=== PATIENT | male | born 1995 | race Caucasian/White ===

== ENCOUNTER 2017-10-05 02:49 | Emergency (ER) | payer OTHER ==
[~2017-10-05] VITALS: Ht 167.6 cm; Wt 82.0 kg
[2017-10-05 03:01] VITALS: BP 127/82; PULSE 95; RESP 18; TEMP 97.5; O2SAT 100
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
[2017-10-05 03:58] LABS: BICARBONATE 27.5 MEQ/L (21.0-32.0); CALCIUM 8.3 MG/DL (8.5-10.1)
[2017-10-05 04:17] LABS: AUTOMATED NEUTROPHIL # 6.2 TH/MM3 (1.8-7.7); BASOPHIL # 0.1 TH/MM3 (0-0.2); BASOPHIL % 1.3 % (0.0-2.0); EOSINOPHIL # 0.8 TH/MM3 (0-0.4); EOSINOPHIL % 7.1 % (0.0-4.0); HEMATOCRIT 41.1 % (39.0-51.0); HEMOGLOBIN 14.3 GM/DL (13.0-17.0); LYMPH % 28.8 % (9.0-44.0); LYMPHOCYTE # 3.1 TH/MM3 (1.0-4.8); MEAN CELL VOLUME 90.4 FL (80.0-100.0); MEAN CORPUSCULAR HEMOGLOBIN 31.4 PG (27.0-34.0); MEAN CORPUSCULAR HGB CONC 34.8 % (32.0-36.0); MEAN PLATELET VOLUME 7.8 FL (7.0-11.0); MONO % 5.6 % (0.0-8.0); MONOCYTE # 0.6 TH/MM3 (0-0.9); NEUT % 57.2 % (16.0-70.0); PLATELET COUNT 390 TH/MM3 (150-450); RED BLOOD COUNT 4.54 MIL/MM3 (4.50-5.90); RED CELL DISTRIBUTION WIDTH 12.6 % (11.6-17.2); WHITE BLOOD COUNT 10.8 TH/MM3 (4.0-11.0)
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
== END 2017-10-05 15:16 | disposition home or self-care (01) ==
LOC: NEPD 02:49 → NEPJ 15:16
DX: F10.94 Alcohol use, unspecified with alcohol-induced mood disorder (principal); F12.90 Cannabis use, unspecified, uncomplicated; Y90.7 Blood alcohol level of 200-239 mg/100 ml; Z72.0 Tobacco use
CPT/HCPCS: 80048; 80307; 84443; 85025; 99284

== ENCOUNTER 2017-11-10 00:15 | Emergency (ER) | payer OTHER ==
[~2017-11-10] VITALS: Ht 172.7 cm; Wt 80.0 kg
[2017-11-10 00:27] VITALS: BP 127/80; PULSE 100; RESP 16; TEMP 98.7; O2SAT 96
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
== END 2017-11-10 00:48 ==
LOC: NEPC 00:15
DX: S00.11XA Contusion of right eyelid and periocular area, initial encounter (principal); H11.31 Conjunctival hemorrhage, right eye; Y09 Assault by unspecified means
CPT/HCPCS: 99282

== ENCOUNTER 2018-02-15 02:15 | Inpatient (IN) ==
[2018-02-15] MEDS ORDERED: Heparin 10,000 UNITS/10 ML Vial (for IV use) IV.PUSH STA ×3 (02:22→04:27)
[2018-02-15] MEDS ORDERED: Nitroglycerin Drip Premix 50 MG/250 ML BOTTLE ONE (02:25)
[2018-02-15] MEDS ORDERED: Morphine Inj 4 MG/ML Vial ONE (02:26)
[2018-02-15] MEDS ORDERED: Sod Chloride 0.9% Inj 1,000 ML IV.SIG SCH ×2 (02:30→03:30)
[2018-02-15] MEDS: Nitroglycerin Drip Premix 50 MG/250 ML BOTTLE IV.CONT PRN ×2 (02:33→14:23)
--- NOTE | 2018-02-15 02:52 | XR ---
EXAM DATE: 02/15/2018 2:48 AM EDT AGE/SEX: 22 years / Male INDICATIONS: Chest pain, STEMI-Alert. CLINICAL DATA: This is the patient's initial encounter. Patient reports that signs and symptoms have been present for 1 day and indicates a pain score of 10/10. MEDICAL/SURGICAL HISTORY: None. None. COMPARISON: No prior exams available for comparison. FINDINGS: A single AP view of the chest demonstrates the lungs to be symmetrically aerated without evidence of mass, infiltrate or effusion. The cardiomediastinal contours are unremarkable. Old fracture deformit y of the right clavicular diaphysis. Dextroscoliosis of the thoracolumbar spine. CONCLUSION: No acute cardiopulmonary process. Lungs are clear. Electronically signed by: Arslan Rajput MD 02/15/2018 2:50 AM EDT
--- NOTE | 2018-02-15 03:07 | ED ---
HPI General Chief Complaint: STEMI Alert Stated Complaint: chest pain Time Seen by Provider: 02/15/18 02:22 Source: patient and EMS Mode of arrival: EMS Limitations: no limitations History of Present Illness HPI narrative: 22-year-old male presents to the emergency department from home by EMS transport for evaluation of chest pain with shortness of breath diaphoresis and referred pain to the right upper extremity and bilateral lower extremities. Patient admits to substance use but denies any recent use for greater than 2 weeks. Patient rates pain 10/10 in intensity at 8 PM and upon EMS arrival remaining a 10 over 12:10 received sublingual nitroglycerin 3 324 mg of aspirin and 4 mg of morphine. Patient's pain is decreased to 8/10 intensity is worsened by deep respiratory effort and intermittently complains of tingling or decreased sensation in the feet. Patient also complains of tightness of his cast. Patient denies any recent injury or increased exercise regimen. Patient is noted some tenseness and swelling of his calves. Patient admits to ongoing tobacco use has known personal history of hypertension dyslipidemia diabetes or known coronary vessel disease also has no family history of premature onset heart disease or clotting disorder. Patient states on Friday he noticed that he had dark colored urine. complaint: chest pain Complete Quality Measures for STEMI Alert Patients STEMI Alert: Yes Onset (ago): hour(s) (6.5) Time: 02:22 Duration: constant and progressively worsening Onset: during rest Pain location: substernal and left chest Severity: severe Severity scale (1-10): 8 Quality: tightness and sharp Pain radiation: RUE and other (ble) Relieving factors: nitroglycerin and medication-other (Morphine sulfate provide some relief from 10/10 intensity to 8/10 intensity) Exacerbating factors: inspiration Context: other (Marijuana use Friday last) Associated symptoms: nausea and diaphoresis Treatments prior to arrival chest pain: aspirin and nitroglycerin Related Data Home Medications Medication Instructions Recorded Confirmed No Known Home Medications 02/15/18 02/15/18 Allergies Allergy/AdvReac Type Severity Reaction Status Date / Time No Known Allergies Allergy Unverified 02/15/18 02:21 Review of Systems ROS: all other systems reviewed are negative [facility] Medical History Medical History Amputation of left index finger (Acute) Amputation of left middle finger (Acute) Amputation of left ring finger (Acute) Asthma (Acute) Family History Family History Mother Family history of cancer Other No significant family history Social History Social History Substance History: Active Abuse Smoking Status: Current every day smoker Tobacco Type: Cigarettes How Often Do You Have a Drink Containing Alcohol: 2 to 3 times a week Recent Travel in [place] within the Last 8 Weeks: No Recent Out of Country Travel within the Last 8 Weeks: No Substance Abuse Detail Marijuana: Substance Use Status: Active Route Used Substance Abuse: Inhalation Substance Frequency: COUPLE TIMES A MONTH Reason for Use: Get High Crack/Cocaine: Substance Use Status: Active Route Used Substance Abuse: Inhalation Substance Frequency: COUPLE TIMES MONTH Reason for Use: Get High Immunization History Tetanus Immunization: Unsure Hx Influenza Vaccine This Season: No Exam Narrative Exam Narrative: GENERAL: Well-nourished, well-developed patient. Appears to be an discomfort no respiratory distress GCS 15 SKIN: Focused skin assessment warm/dry. HEAD: Normocephalic. EYES: No scleral icterus. No injection or drainage. NECK: Supple, trachea midline. No JVD or lymphadenopathy. CARDIOVASCULAR: Regular rate and rhythm without murmurs, gallops, or rubs. RESPIRATORY: Breath sounds equal bilaterally. No accessory muscle use. GASTROINTESTINAL: Abdomen soft, non-tender, nondistended. MUSCULOSKELETAL: No cyanosis, or edema. Radial pulses 2+ to palpation bilaterally dorsalis pedis pulses and posterior tibialis pulses 2+ to palpation bilaterally capillary refill is brisk and less than 2 seconds per digit lateral upper extremities and lower extremities BACK: Nontender without obvious deformity. No CVA tenderness. Course Consultations Consultation #1: Dr Avitia stat call --stemi Time: 02:20 Consultation #2: Aneththesiologist -- Dr Falcon Time: 02:52 Initial Documented Vital Signs Pulse Oximetry 98 02/15/18 02:15 Last Documented Vital Signs Temperature 98.9 F 02/15/18 14:00 Pulse Rate 81 02/15/18 15:00 Respiratory Rate 14 02/15/18 15:00 Blood Pressure 115/71 02/15/18 16:00 Pulse Oximetry 98 02/15/18 16:00 Critical Care Time Critical Care Time: Yes Total Critical Care Time: 35 Attestation: Aggregate critical care time was 35 minutes. Time to perform other separately billable procedures was not included in the critical care time. My time did not include minutes spent treating any other patients simultaneously or on activities that did not directly contribute to the patient's treatment. The services I provided to this patient were to treat and/or prevent clinically significant deterioration that could result in: Dissection, cardiogenic shock, I provided critical care services requiring my management, as noted below: Chart data review, documentation time, medication orders and management, vital sign assessments/reviewing monitor data, ordering and reviewing lab tests, ordering and interpreting/reviewing x-rays and diagnostic studies, care of the patient and discussion of the patient with the admitting physicians. Medical Decision Making MDM Narrative Medical decision making narrative: 22-year-old male presents to the emergency department by EMS transport from home for severe retrosternal chest pain with abnormal EKG showing acute ST elevation anterolaterally with inferior ST elevation and Q waves present. Patient with ongoing persistent chest pain unresolved with nitroglycerin and morphine sulfate. EKG in the emergency department again shows ST segment elevation inferiorly and anterolaterally with reciprocal changes however Q-wave present for possible subacute versus acute CA stat call placed to on-call wood panel inspector for STEMI alert STEMI alert called patient's case discussed with on-call wood panel inspector Dr. Avitia imaging of the EKG sent by phone directly to wood panel inspector again notes Q waves present concern for dissection in young adults with no other known medical history. Discussed with Dr Weiss MR v CTA for dissection in patient with Cr 3.3 -- this shared with Dr Avitia I-STAT lab values remarkable for creatinine of 3.3 this is discussed in detail with radiologist as well as wood panel inspector Dr. Avitia reports that he will come to the emergency room and perform a bedside transesophageal echocardiogram to evaluate the aortic root. Heparin will be held until echo is performed and CTA of the thorax and abdominal aorta has been canceled. Per Dr. Avitia patient not candidate for cardiac catheterization at this time in view of acute renal failure. @ 3:05 Dr avitia at the bedside for assessment and AMAIRANI Dr Gregorio at bedside Medical Screen Exam Complete: Yes Emergency Medical Condition: Yes Differential Diagnosis Differential Diagnosis: [facility], subacute myocardial infarction, aortic dissection, myocarditis, pericarditis, PE, rhabdomyolysis acute renal failure polysubstance ingestion Medical Records Medical records reviewed: Yes I reviewed the patient's medical records. Lab Data Lab results reviewed: Yes I reviewed the patient's lab results. Result diagrams: 02/15/18 02:20 02/15/18 12:50 Lab Results 02/15/18 02/15/18 02/15/18 Range/Units 02:20 02:20 02:20 WBC 15.8 H (4.0-11.0) th/mm3 RBC 4.82 (4.50-5.90) mil/mm3 Hgb 15.5 (13.0-17.0) gm/dL POC Hgb (Calc) (13.0-17.0) g/dL Hct 44.4 (39.0-51.0) % POC Hct (39-51.0) % MCV 92.2 (80.0-100.0) fL MCH 32.1 (27.0-34.0) pg MCHC 34.8 (32.0-36.0) % RDW 12.9 (11.6-17.2) % Plt Count 228 (150-450) th/mm3 MPV 8.5 (7.0-11.0) fL Neut % (Auto) 83.7 H (16.0-70.0) % Lymph % (Auto) 9.7 (9.0-44.0) % [place] % (Auto) 5.9 (0.0-8.0) % Eos % (Auto) 0.3 (0.0-4.0) % Baso % (Auto) 0.4 (0.0-2.0) % Neut # (Auto) 13.2 H (1.8-7.7) th/mm3 Lymph # (Auto) 1.5 (1.0-4.8) th/mm3 [place] # (Auto) 0.9 (0.0-0.9) th/mm3 Eos # (Auto) 0.1 (0.0-0.4) th/mm3 Baso # (Auto) 0.1 (0.0-0.2) th/mm3 WBC Differential . Differential Comment Auto diff final ESR (0-15) mm/hr PT 10.1 (9.8-11.6) sec INR 1.0 Ratio APTT 24.2 L (24.3-30.1) sec POC Sodium (137-144) mmol/L Sodium (136-145) meq/L POC Potassium (3.6-5.0) mmol/L Potassium (3.5-5.1) meq/L POC Chloride (102-111) mmol/L Chloride (98-107) meq/L Carbon Dioxide (21.0-32.0) meq/L Anion Gap (5-15) meq/L POC BUN (5-21) mg/dL BUN (7-18) mg/dL Creatinine (0.60-1.30) mg/dL POC Creatinine (0.6-1.3) mg/dL Estimated GFR (>89) mL/min POC Glucose (68-110) mg/dL Random Glucose (74-106) mg/dL Lactic Acid (0.4-2.0) mmol/L Calcium (8.5-10.1) mg/dL Prot Corrected Calcium Phosphorus (2.5-4.9) mg/dL Magnesium (1.5-2.5) mg/dL Total Bilirubin (0.2-1.0) mg/dL AST (15-37) U/L ALT (12-78) U/L Alkaline Phosphatase (45-117) U/L Total Creatine Kinase (39-308) U/L CK-MB (CK-2) (0.5-3.6) ng/mL CK-MB (CK-2) % (0.0-4.0) % Troponin I (0.02-0.05) ng/mL C-Reactive Protein (0.00-0.30) mg/dL B-Natriuretic Peptide (0-100) pg/mL Total Protein (6.4-8.2) g/dL Albumin (3.4-5.0) g/dL Lipase (73-393) U/L TSH (0.358-3.740) uIU/mL Urine Color (Yellw/Straw) Urine Clarity (Clear) Urine pH (5.0-8.5) Ur Specific [place] (1.002-1.035) Urine Protein (Neg-Trace) mg/dL Urine Glucose (UA) (Negative) mg/dL Urine Ketones (Negative) mg/dL Urine Occult Blood (Negative) Urine Nitrate (Negative) Urine Bilirubin (Negative) Urine Urobilinogen (Less than 2) mg/dL Ur Leukocyte Esterase (Negative) Urine Eosinophils Ur Random Creatinine (27-300) mg/dL Ur Random Sodium meq/L Nasal Screen MRSA (PCR) (Negative) Acetaminophen (10.0-30.0) mcg/mL Hepatitis A IgM Ab (Nonreactive) Hep Bs Antigen (Nonreactive) Hep B Core IgM Ab (Nonreactive) Hep C IgG Ab (Nonreactive) Blood Type A Negative Blood Type Recheck Required Antibody Screen Negative 02/15/18 02/15/18 02/15/18 Range/Units 02:20 02:20 05:10 WBC (4.0-11.0) th/mm3 RBC (4.50-5.90) mil/mm3 Hgb (13.0-17.0) gm/dL POC Hgb (Calc) 15.0 (13.0-17.0) g/dL Hct (39.0-51.0) % POC Hct 44.0 (39-51.0) % MCV (80.0-100.0) fL MCH (27.0-34.0) pg MCHC (32.0-36.0) % RDW (11.6-17.2) % Plt Count (150-450) th/mm3 MPV (7.0-11.0) fL Neut % (Auto) (16.0-70.0) % Lymph % (Auto) (9.0-44.0) % Mclean % (Auto) (0.0-8.0) % Eos % (Auto) (0.0-4.0) % Baso % (Auto) (0.0-2.0) % Neut # (Auto) (1.8-7.7) th/mm3 Lymph # (Auto) (1.0-4.8) th/mm3 [place]clean # (Auto) (0.0-0.9) th/mm3 Eos # (Auto) (0.0-0.4) th/mm3 Baso # (Auto) (0.0-0.2) th/mm3 WBC Differential Differential Comment ESR 14 (0-15) mm/hr PT (9.8-11.6) sec INR Ratio APTT (24.3-30.1) sec POC Sodium 133 L (137-144) mmol/L Sodium (136-145) meq/L POC Potassium 3.3 L (3.6-5.0) mmol/L Potassium (3.5-5.1) meq/L POC Chloride 99 L (102-111) mmol/L Chloride (98-107) meq/L Carbon Dioxide (21.0-32.0) meq/L Anion Gap (5-15) meq/L POC BUN 38 H (5-21) mg/dL BUN (7-18) mg/dL Creatinine (0.60-1.30) mg/dL POC Creatinine 3.3 H (0.6-1.3) mg/dL Estimated GFR (>89) mL/min POC Glucose 136 H (68-110) mg/dL Random Glucose (74-106) mg/dL Lactic Acid (0.4-2.0) mmol/L Calcium 8.0 L (8.5-10.1) mg/dL Prot Corrected Calcium Phosphorus (2.5-4.9) mg/dL Magnesium 2.5 (1.5-2.5) mg/dL Total Bilirubin (0.2-1.0) mg/dL AST (15-37) U/L ALT (12-78) U/L Alkaline Phosphatase (45-117) U/L Total Creatine Kinase 79767 H (39-308) U/L CK-MB (CK-2) 473.9 H (0.5-3.6) ng/mL CK-MB (CK-2) % 1.2 (0.0-4.0) % Troponin I Greater than 40.00 H* (0.02-0.05) ng/mL C-Reactive Protein (0.00-0.30) mg/dL B-Natriuretic Peptide 386 H (0-100) pg/mL Total Protein (6.4-8.2) g/dL Albumin (3.4-5.0) g/dL Lipase (73-393) U/L TSH (0.358-3.740) uIU/mL Urine Color (Yellw/Straw) Urine Clarity (Clear) Urine pH (5.0-8.5) Ur Specific [place] (1.002-1.035) Urine Protein (Neg-Trace) mg/dL Urine Glucose (UA) (Negative) mg/dL Urine Ketones (Negative) mg/dL Urine Occult Blood (Negative) Urine Nitrate (Negative) Urine Bilirubin (Negative) Urine Urobilinogen (Less than 2) mg/dL Ur Leukocyte Esterase (Negative) Urine Eosinophils Ur Random Creatinine (27-300) mg/dL Ur Random Sodium meq/L Nasal Screen MRSA (PCR) (Negative) Acetaminophen (10.0-30.0) mcg/mL Hepatitis A IgM Ab (Nonreactive) Hep Bs Antigen (Nonreactive) Hep B Core IgM Ab (Nonreactive) Hep C IgG Ab (Nonreactive) Blood Type Blood Type Recheck Antibody Screen 02/15/18 02/15/18 02/15/18 Range/Units 05:10 05:10 05:10 WBC (4.0-11.0) th/mm3 RBC (4.50-5.90) mil/mm3 Hgb (13.0-17.0) gm/dL POC Hgb (Calc) (13.0-17.0) g/dL Hct (39.0-51.0) % POC Hct (39-51.0) % MCV (80.0-100.0) fL MCH (27.0-34.0) pg MCHC (32.0-36.0) % RDW (11.6-17.2) % Plt Count (150-450) th/mm3 MPV (7.0-11.0) fL Neut % (Auto) (16.0-70.0) % Lymph % (Auto) (9.0-44.0) % Mclean % (Auto) (0.0-8.0) % Eos % (Auto) (0.0-4.0) % Baso % (Auto) (0.0-2.0) % Neut # (Auto) (1.8-7.7) th/mm3 Lymph # (Auto) (1.0-4.8) th/mm3 [place]clean # (Auto) (0.0-0.9) th/mm3 Eos # (Auto) (0.0-0.4) th/mm3 Baso # (Auto) (0.0-0.2) th/mm3 WBC Differential Differential Comment ESR (0-15) mm/hr PT (9.8-11.6) sec INR Ratio APTT (24.3-30.1) sec POC Sodium (137-144) mmol/L Sodium 136 (136-145) meq/L POC Potassium (3.6-5.0) mmol/L Potassium 3.7 (3.5-5.1) meq/L POC Chloride (102-111) mmol/L Chloride 98 (98-107) meq/L Carbon Dioxide 26.1 (21.0-32.0) meq/L Anion Gap 12 (5-15) meq/L POC BUN (5-21) mg/dL BUN 43 H (7-18) mg/dL Creatinine 3.22 H (0.60-1.30) mg/dL POC Creatinine (0.6-1.3) mg/dL Estimated GFR 24 L (>89) mL/min POC Glucose (68-110) mg/dL Random Glucose 113 H (74-106) mg/dL Lactic Acid (0.4-2.0) mmol/L Calcium 8.3 L (8.5-10.1) mg/dL Prot Corrected Calcium Phosphorus 4.2 Cancelled (2.5-4.9) mg/dL Magnesium (1.5-2.5) mg/dL Total Bilirubin 0.4 (0.2-1.0) mg/dL AST 1570 H (15-37) U/L ALT 499 H (12-78) U/L Alkaline Phosphatase 74 (45-117) U/L Total Creatine Kinase (39-308) U/L CK-MB (CK-2) (0.5-3.6) ng/mL CK-MB (CK-2) % (0.0-4.0) % Troponin I (0.02-0.05) ng/mL C-Reactive Protein 12.70 H (0.00-0.30) mg/dL B-Natriuretic Peptide (0-100) pg/mL Total Protein 6.9 (6.4-8.2) g/dL Albumin 3.4 (3.4-5.0) g/dL Lipase (73-393) U/L TSH 1.460 Cancelled (0.358-3.740) uIU/mL Urine Color (Yellw/Straw) Urine Clarity (Clear) Urine pH (5.0-8.5) Ur Specific [place] (1.002-1.035) Urine Protein (Neg-Trace) mg/dL Urine Glucose (UA) (Negative) mg/dL Urine Ketones (Negative) mg/dL Urine Occult Blood (Negative) Urine Nitrate (Negative) Urine Bilirubin (Negative) Urine Urobilinogen (Less than 2) mg/dL Ur Leukocyte Esterase (Negative) Urine Eosinophils Ur Random Creatinine (27-300) mg/dL Ur Random Sodium meq/L Nasal Screen MRSA (PCR) (Negative) Acetaminophen (10.0-30.0) mcg/mL Hepatitis A IgM Ab (Nonreactive) Hep Bs Antigen (Nonreactive) Hep B Core IgM Ab (Nonreactive) Hep C IgG Ab (Nonreactive) Blood Type Blood Type Recheck Antibody Screen 02/15/18 02/15/18 02/15/18 Range/Units 05:10 06:30 08:20 WBC (4.0-11.0) th/mm3 RBC (4.50-5.90) mil/mm3 Hgb (13.0-17.0) gm/dL POC Hgb (Calc) (13.0-17.0) g/dL Hct (39.0-51.0) % POC Hct (39-51.0) % MCV (80.0-100.0) fL MCH (27.0-34.0) pg MCHC (32.0-36.0) % RDW (11.6-17.2) % Plt Count (150-450) th/mm3 MPV (7.0-11.0) fL Neut % (Auto) (16.0-70.0) % Lymph % (Auto) (9.0-44.0) % [place] % (Auto) (0.0-8.0) % Eos % (Auto) (0.0-4.0) % Baso % (Auto) (0.0-2.0) % Neut # (Auto) (1.8-7.7) th/mm3 Lymph # (Auto) (1.0-4.8) th/mm3 [place] # (Auto) (0.0-0.9) th/mm3 Eos # (Auto) (0.0-0.4) th/mm3 Baso # (Auto) (0.0-0.2) th/mm3 WBC Differential Differential Comment ESR (0-15) mm/hr PT (9.8-11.6) sec INR Ratio APTT (24.3-30.1) sec POC Sodium (137-144) mmol/L Sodium Cancelled (136-145) meq/L POC Potassium (3.6-5.0) mmol/L Potassium Cancelled (3.5-5.1) meq/L POC Chloride (102-111) mmol/L Chloride Cancelled (98-107) meq/L Carbon Dioxide Cancelled (21.0-32.0) meq/L Anion Gap Cancelled (5-15) meq/L POC BUN (5-21) mg/dL BUN Cancelled (7-18) mg/dL Creatinine Cancelled (0.60-1.30) mg/dL POC Creatinine (0.6-1.3) mg/dL Estimated GFR Cancelled (>89) mL/min POC Glucose (68-110) mg/dL Random Glucose Cancelled (74-106) mg/dL Lactic Acid 0.8 (0.4-2.0) mmol/L Calcium Cancelled (8.5-10.1) mg/dL Prot Corrected Calcium Cancelled Phosphorus (2.5-4.9) mg/dL Magnesium (1.5-2.5) mg/dL Total Bilirubin Cancelled (0.2-1.0) mg/dL AST Cancelled (15-37) U/L ALT Cancelled (12-78) U/L Alkaline Phosphatase Cancelled (45-117) U/L Total Creatine Kinase (39-308) U/L CK-MB (CK-2) (0.5-3.6) ng/mL CK-MB (CK-2) % (0.0-4.0) % Troponin I (0.02-0.05) ng/mL C-Reactive Protein (0.00-0.30) mg/dL B-Natriuretic Peptide (0-100) pg/mL Total Protein Cancelled (6.4-8.2) g/dL Albumin Cancelled (3.4-5.0) g/dL Lipase (73-393) U/L TSH (0.358-3.740) uIU/mL Urine Color (Yellw/Straw) Urine Clarity (Clear) Urine pH (5.0-8.5) Ur Specific [place] (1.002-1.035) Urine Protein (Neg-Trace) mg/dL Urine Glucose (UA) (Negative) mg/dL Urine Ketones (Negative) mg/dL Urine Occult Blood (Negative) Urine Nitrate (Negative) Urine Bilirubin (Negative) Urine Urobilinogen (Less than 2) mg/dL Ur Leukocyte Esterase (Negative) Urine Eosinophils Ur Random Creatinine (27-300) mg/dL Ur Random Sodium meq/L Nasal Screen MRSA (PCR) Not detected (Negative) Acetaminophen (10.0-30.0) mcg/mL Hepatitis A IgM Ab (Nonreactive) Hep Bs Antigen (Nonreactive) Hep B Core IgM Ab (Nonreactive) Hep C IgG Ab (Nonreactive) Blood Type Blood Type Recheck Antibody Screen 02/15/18 02/15/18 02/15/18 Range/Units 08:30 08:30 08:30 WBC (4.0-11.0) th/mm3 RBC (4.50-5.90) mil/mm3 Hgb (13.0-17.0) gm/dL POC Hgb (Calc) (13.0-17.0) g/dL Hct (39.0-51.0) % POC Hct (39-51.0) % MCV (80.0-100.0) fL MCH (27.0-34.0) pg MCHC (32.0-36.0) % RDW (11.6-17.2) % Plt Count (150-450) th/mm3 MPV (7.0-11.0) fL Neut % (Auto) (16.0-70.0) % Lymph % (Auto) (9.0-44.0) % [place] % (Auto) (0.0-8.0) % Eos % (Auto) (0.0-4.0) % Baso % (Auto) (0.0-2.0) % Neut # (Auto) (1.8-7.7) th/mm3 Lymph # (Auto) (1.0-4.8) th/mm3 [place] # (Auto) (0.0-0.9) th/mm3 Eos # (Auto) (0.0-0.4) th/mm3 Baso # (Auto) (0.0-0.2) th/mm3 WBC Differential Differential Comment ESR (0-15) mm/hr PT (9.8-11.6) sec INR Ratio APTT (24.3-30.1) sec POC Sodium (137-144) mmol/L Sodium (136-145) meq/L POC Potassium (3.6-5.0) mmol/L Potassium (3.5-5.1) meq/L POC Chloride (102-111) mmol/L Chloride (98-107) meq/L Carbon Dioxide (21.0-32.0) meq/L Anion Gap (5-15) meq/L POC BUN (5-21) mg/dL BUN (7-18) mg/dL Creatinine (0.60-1.30) mg/dL POC Creatinine (0.6-1.3) mg/dL Estimated GFR (>89) mL/min POC Glucose (68-110) mg/dL Random Glucose (74-106) mg/dL Lactic Acid (0.4-2.0) mmol/L Calcium (8.5-10.1) mg/dL Prot Corrected Calcium Phosphorus (2.5-4.9) mg/dL Magnesium (1.5-2.5) mg/dL Total Bilirubin (0.2-1.0) mg/dL AST (15-37) U/L ALT (12-78) U/L Alkaline Phosphatase (45-117) U/L Total Creatine Kinase (39-308) U/L CK-MB (CK-2) (0.5-3.6) ng/mL CK-MB (CK-2) % (0.0-4.0) % Troponin I (0.02-0.05) ng/mL C-Reactive Protein (0.00-0.30) mg/dL B-Natriuretic Peptide (0-100) pg/mL Total Protein (6.4-8.2) g/dL Albumin (3.4-5.0) g/dL Lipase (73-393) U/L TSH (0.358-3.740) uIU/mL Urine Color (Yellw/Straw) Urine Clarity (Clear) Urine pH (5.0-8.5) Ur Specific [place] (1.002-1.035) Urine Protein (Neg-Trace) mg/dL Urine Glucose (UA) (Negative) mg/dL Urine Ketones (Negative) mg/dL Urine Occult Blood (Negative) Urine Nitrate (Negative) Urine Bilirubin (Negative) Urine Urobilinogen (Less than 2) mg/dL Ur Leukocyte Esterase (Negative) Urine Eosinophils ND Ur Random Creatinine 82 (27-300) mg/dL Ur Random Sodium 23 meq/L Nasal Screen MRSA (PCR) (Negative) Acetaminophen (10.0-30.0) mcg/mL Hepatitis A IgM Ab (Nonreactive) Hep Bs Antigen (Nonreactive) Hep B Core IgM Ab (Nonreactive) Hep C IgG Ab (Nonreactive) Blood Type Blood Type Recheck Antibody Screen 02/15/18 02/15/18 02/15/18 Range/Units 08:30 08:50 08:50 WBC (4.0-11.0) th/mm3 RBC (4.50-5.90) mil/mm3 Hgb (13.0-17.0) gm/dL POC Hgb (Calc) (13.0-17.0) g/dL Hct (39.0-51.0) % POC Hct (39-51.0) % MCV (80.0-100.0) fL MCH (27.0-34.0) pg MCHC (32.0-36.0) % RDW (11.6-17.2) % Plt Count (150-450) th/mm3 MPV (7.0-11.0) fL Neut % (Auto) (16.0-70.0) % Lymph % (Auto) (9.0-44.0) % [place] % (Auto) (0.0-8.0) % Eos % (Auto) (0.0-4.0) % Baso % (Auto) (0.0-2.0) % Neut # (Auto) (1.8-7.7) th/mm3 Lymph # (Auto) (1.0-4.8) th/mm3 [place] # (Auto) (0.0-0.9) th/mm3 Eos # (Auto) (0.0-0.4) th/mm3 Baso # (Auto) (0.0-0.2) th/mm3 WBC Differential Differential Comment ESR (0-15) mm/hr PT (9.8-11.6) sec INR Ratio APTT (24.3-30.1) sec POC Sodium (137-144) mmol/L Sodium 137 (136-145) meq/L POC Potassium (3.6-5.0) mmol/L Potassium 3.5 (3.5-5.1) meq/L POC Chloride (102-111) mmol/L Chloride 100 (98-107) meq/L Carbon Dioxide 27.0 (21.0-32.0) meq/L Anion Gap 10 (5-15) meq/L POC BUN (5-21) mg/dL BUN 44 H (7-18) mg/dL Creatinine 3.33 H (0.60-1.30) mg/dL POC Creatinine (0.6-1.3) mg/dL Estimated GFR 23 L (>89) mL/min POC Glucose (68-110) mg/dL Random Glucose 113 H (74-106) mg/dL Lactic Acid 0.9 (0.4-2.0) mmol/L Calcium 8.3 L (8.5-10.1) mg/dL Prot Corrected Calcium Phosphorus 4.1 (2.5-4.9) mg/dL Magnesium 2.6 H (1.5-2.5) mg/dL Total Bilirubin 0.5 (0.2-1.0) mg/dL AST 1325 H (15-37) U/L ALT 466 H (12-78) U/L Alkaline Phosphatase 73 (45-117) U/L Total Creatine Kinase 96124 H (39-308) U/L CK-MB (CK-2) 276.8 H (0.5-3.6) ng/mL CK-MB (CK-2) % 1.1 (0.0-4.0) % Troponin I Greater than 40.00 H* (0.02-0.05) ng/mL C-Reactive Protein (0.00-0.30) mg/dL B-Natriuretic Peptide (0-100) pg/mL Total Protein 6.8 (6.4-8.2) g/dL Albumin 3.3 L (3.4-5.0) g/dL Lipase 58 L (73-393) U/L TSH (0.358-3.740) uIU/mL Urine Color Yellow (Yellw/Straw) Urine Clarity Hazy H (Clear) Urine pH 5.0 (5.0-8.5) Ur Specific [place] 1.008 (1.002-1.035) Urine Protein 30 H (Neg-Trace) mg/dL Urine Glucose (UA) Negative (Negative) mg/dL Urine Ketones Negative (Negative) mg/dL Urine Occult Blood Large H (Negative) Urine Nitrate Negative (Negative) Urine Bilirubin Negative (Negative) Urine Urobilinogen Less than 2 (Less than 2) mg/dL Ur Leukocyte Esterase Negative (Negative) Urine Eosinophils Ur Random Creatinine (27-300) mg/dL Ur Random Sodium meq/L Nasal Screen MRSA (PCR) (Negative) Acetaminophen Less than 2.0 L (10.0-30.0) mcg/mL Hepatitis A IgM Ab (Nonreactive) Hep Bs Antigen (Nonreactive) Hep B Core IgM Ab (Nonreactive) Hep C IgG Ab (Nonreactive) Blood Type Blood Type Recheck Antibody Screen 02/15/18 02/15/18 02/15/18 Range/Units 09:23 12:50 12:50 WBC (4.0-11.0) th/mm3 RBC (4.50-5.90) mil/mm3 Hgb (13.0-17.0) gm/dL POC Hgb (Calc) (13.0-17.0) g/dL Hct (39.0-51.0) % POC Hct (39-51.0) % MCV (80.0-100.0) fL MCH (27.0-34.0) pg MCHC (32.0-36.0) % RDW (11.6-17.2) % Plt Count (150-450) th/mm3 MPV (7.0-11.0) fL Neut % (Auto) (16.0-70.0) % Lymph % (Auto) (9.0-44.0) % [place] % (Auto) (0.0-8.0) % Eos % (Auto) (0.0-4.0) % Baso % (Auto) (0.0-2.0) % Neut # (Auto) (1.8-7.7) th/mm3 Lymph # (Auto) (1.0-4.8) th/mm3 [place] # (Auto) (0.0-0.9) th/mm3 Eos # (Auto) (0.0-0.4) th/mm3 Baso # (Auto) (0.0-0.2) th/mm3 WBC Differential Differential Comment ESR (0-15) mm/hr PT (9.8-11.6) sec INR Ratio APTT (24.3-30.1) sec POC Sodium (137-144) mmol/L Sodium 137 (136-145) meq/L POC Potassium (3.6-5.0) mmol/L Potassium 4.0 (3.5-5.1) meq/L POC Chloride (102-111) mmol/L Chloride 97 L (98-107) meq/L Carbon Dioxide 31.0 (21.0-32.0) meq/L Anion Gap 9 (5-15) meq/L POC BUN (5-21) mg/dL BUN 42 H (7-18) mg/dL Creatinine 3.37 H (0.60-1.30) mg/dL POC Creatinine (0.6-1.3) mg/dL Estimated GFR 23 L (>89) mL/min POC Glucose 107 (68-110) mg/dL Random Glucose 99 (74-106) mg/dL Lactic Acid 1.1 (0.4-2.0) mmol/L Calcium 8.5 (8.5-10.1) mg/dL Prot Corrected Calcium Phosphorus 3.4 (2.5-4.9) mg/dL Magnesium 2.3 (1.5-2.5) mg/dL Total Bilirubin 0.8 (0.2-1.0) mg/dL AST 1244 H (15-37) U/L ALT 483 H (12-78) U/L Alkaline Phosphatase 80 (45-117) U/L Total Creatine Kinase 13691 H (39-308) U/L CK-MB (CK-2) 212.1 H (0.5-3.6) ng/mL CK-MB (CK-2) % 0.9 (0.0-4.0) % Troponin I Greater than 40.00 H* (0.02-0.05) ng/mL C-Reactive Protein (0.00-0.30) mg/dL B-Natriuretic Peptide (0-100) pg/mL Total Protein 6.7 (6.4-8.2) g/dL Albumin 3.4 (3.4-5.0) g/dL Lipase (73-393) U/L TSH (0.358-3.740) uIU/mL Urine Color (Yellw/Straw) Urine Clarity (Clear) Urine pH (5.0-8.5) Ur Specific [place] (1.002-1.035) Urine Protein (Neg-Trace) mg/dL Urine Glucose (UA) (Negative) mg/dL Urine Ketones (Negative) mg/dL Urine Occult Blood (Negative) Urine Nitrate (Negative) Urine Bilirubin (Negative) Urine Urobilinogen (Less than 2) mg/dL Ur Leukocyte Esterase (Negative) Urine Eosinophils Ur Random Creatinine (27-300) mg/dL Ur Random Sodium meq/L Nasal Screen MRSA (PCR) (Negative) Acetaminophen (10.0-30.0) mcg/mL Hepatitis A IgM Ab (Nonreactive) Hep Bs Antigen (Nonreactive) Hep B Core IgM Ab (Nonreactive) Hep C IgG Ab (Nonreactive) Blood Type Blood Type Recheck Antibody Screen 02/15/18 02/15/18 02/15/18 Range/Units 12:50 12:50 12:50 WBC (4.0-11.0) th/mm3 RBC (4.50-5.90) mil/mm3 Hgb (13.0-17.0) gm/dL POC Hgb (Calc) (13.0-17.0) g/dL Hct (39.0-51.0) % POC Hct (39-51.0) % MCV (80.0-100.0) fL MCH (27.0-34.0) pg MCHC (32.0-36.0) % RDW (11.6-17.2) % Plt Count (150-450) th/mm3 MPV (7.0-11.0) fL Neut % (Auto) (16.0-70.0) % Lymph % (Auto) (9.0-44.0) % [place] % (Auto) (0.0-8.0) % Eos % (Auto) (0.0-4.0) % Baso % (Auto) (0.0-2.0) % Neut # (Auto) (1.8-7.7) th/mm3 Lymph # (Auto) (1.0-4.8) th/mm3 [place] # (Auto) (0.0-0.9) th/mm3 Eos # (Auto) (0.0-0.4) th/mm3 Baso # (Auto) (0.0-0.2) th/mm3 WBC Differential Differential Comment ESR (0-15) mm/hr PT (9.8-11.6) sec INR Ratio APTT 28.9 (24.3-30.1) sec POC Sodium (137-144) mmol/L Sodium (136-145) meq/L POC Potassium (3.6-5.0) mmol/L Potassium (3.5-5.1) meq/L POC Chloride (102-111) mmol/L Chloride (98-107) meq/L Carbon Dioxide (21.0-32.0) meq/L Anion Gap (5-15) meq/L POC BUN (5-21) mg/dL BUN (7-18) mg/dL Creatinine (0.60-1.30) mg/dL POC Creatinine (0.6-1.3) mg/dL Estimated GFR (>89) mL/min POC Glucose (68-110) mg/dL Random Glucose (74-106) mg/dL Lactic Acid Cancelled (0.4-2.0) mmol/L Calcium (8.5-10.1) mg/dL Prot Corrected Calcium Phosphorus (2.5-4.9) mg/dL Magnesium (1.5-2.5) mg/dL Total Bilirubin (0.2-1.0) mg/dL AST (15-37) U/L ALT (12-78) U/L Alkaline Phosphatase (45-117) U/L Total Creatine Kinase (39-308) U/L CK-MB (CK-2) (0.5-3.6) ng/mL CK-MB (CK-2) % (0.0-4.0) % Troponin I (0.02-0.05) ng/mL C-Reactive Protein (0.00-0.30) mg/dL B-Natriuretic Peptide (0-100) pg/mL Total Protein (6.4-8.2) g/dL Albumin (3.4-5.0) g/dL Lipase (73-393) U/L TSH (0.358-3.740) uIU/mL Urine Color (Yellw/Straw) Urine Clarity (Clear) Urine pH (5.0-8.5) Ur Specific [place] (1.002-1.035) Urine Protein (Neg-Trace) mg/dL Urine Glucose (UA) (Negative) mg/dL Urine Ketones (Negative) mg/dL Urine Occult Blood (Negative) Urine Nitrate (Negative) Urine Bilirubin (Negative) Urine Urobilinogen (Less than 2) mg/dL Ur Leukocyte Esterase (Negative) Urine Eosinophils Ur Random Creatinine (27-300) mg/dL Ur Random Sodium meq/L Nasal Screen MRSA (PCR) (Negative) Acetaminophen (10.0-30.0) mcg/mL Hepatitis A IgM Ab Nonreactive (Nonreactive) Hep Bs Antigen Nonreactive (Nonreactive) Hep B Core IgM Ab Nonreactive (Nonreactive) Hep C IgG Ab Nonreactive (Nonreactive) Blood Type Blood Type Recheck Antibody Screen Imaging Data Radiologist's impression: Chest X-Ray 02/15/18 02:23 CONCLUSION: No acute cardiopulmonary process. Lungs are clear. Venous Doppler Study 02/15/18 05:50 CONCLUSION: 1. No sonographic evidence for lower extremity DVT. ECG Data EKG Prior to Arrival: Yes Attestation: I personally reviewed and interpreted this ECG as follows: Prior ECG tracings: available for review Interpretation: EKG: Sinus rhythm Q-wave inferiorly with ST elevation as well as anterolateral with acute ST elevation and Q-wave formation no global ST elevation, stemi inferior anterior lateral; STEMI alert called Discharge Plan Discharge Disposition Patient Disposition: 30 Still Patient Discharge Condition Condition: Serious Discharge Details Diagnosis: ST elevation myocardial infarction (STEMI) in recovery phase, Acute renal insufficiency, Substance abuse, Rhabdomyolysis Physicians Team ED Provider: Rhina Mann Primary Care Provider: Primary Care Kika Chaudhry Attending Provider: Savanah Gregorio Status ED Status: Left Department Discharge Information Discharge Date/Time: 02/15/18 06:49
[2018-02-15 03:43] LABS: Magnesium 2.5 mg/dL (1.5-2.5)
[2018-02-15 03:48] LABS: Baso # (Auto) 0.1 th/mm3 (0.0-0.2); Baso % (Auto) 0.4 % (0.0-2.0); Eos # (Auto) 0.1 th/mm3 (0.0-0.4); Eos % (Auto) 0.3 % (0.0-4.0); Hematocrit 44.4 % (39.0-51.0); Hemoglobin 15.5 gm/dL (13.0-17.0); Lymph # (Auto) 1.5 th/mm3 (1.0-4.8); Lymph % (Auto) 9.7 % (9.0-44.0); Mean Corpuscular HGB Conc 34.8 % (32.0-36.0); Mean Corpuscular Hemoglobin 32.1 pg (27.0-34.0); Mean Corpuscular Volume 92.2 fL (80.0-100.0); Mean Platelet Volume 8.5 fL (7.0-11.0); Mono # (Auto) 0.9 th/mm3 (0.0-0.9); Mono % (Auto) 5.9 % (0.0-8.0); Neut # (Auto) 13.2 th/mm3 (1.8-7.7); Neut % (Auto) 83.7 % (16.0-70.0); Platelet Count 228 th/mm3 (150-450); Red Blood Count 4.82 mil/mm3 (4.50-5.90); Red Cell Distribution Width 12.9 % (11.6-17.2); White Blood Count 15.8 th/mm3 (4.0-11.0)
[2018-02-15 03:58] LABS: Activated Partial Thrombo Time 24.2 sec (24.3-30.1); Prothrombin Time 10.1 sec (9.8-11.6)
--- NOTE | 2018-02-15 04:21 | MB ---
cc: Wesley Vang MD DATE: 02/15/2018 REASON FOR CONSULTATION: Possible transesophageal echocardiography, abnormal EKG, possible ST elevation myocardial infarction. HISTORY OF PRESENT ILLNESS: The patient is a 22-year-old white male with no major past medical history, who was in his usual state of health up until 8 p.m. tonight when he began to experience severe left parasternal chest pain, associated mild shortness of breath without nausea or diaphoresis. The pain increases in intensity with deep inspiration. He has also noted bilateral tingling of his lower extremities since the chest discomfort started. He denies syncope, near syncope, dizziness, palpitations, pedal edema. The patient also states he may have had several hours of more pressure-like chest discomfort 2 days ago at work. EKG was obtained here in the Emergency Department showing inferior and anterolateral ST elevation with Q-waves. His creatinine was found to be elevated at 3.3. PAST MEDICAL HISTORY: None. MEDICATIONS AT HOME: None. ALLERGIES: NO KNOWN DRUG ALLERGIES. FAMILY HISTORY: There is no significant family history of early myocardial infarction. SOCIAL HISTORY: The patient smokes about a pack of cigarettes per day. He smokes occasional marijuana. He drinks occasional alcohol. The patient admits to cocaine abuse, but denies using cocaine in past few weeks. REVIEW OF SYSTEMS: As in the history of present illness, otherwise negative or noncontributory. PHYSICAL EXAMINATION: VITAL SIGNS: His blood pressure 127/74 with a pulse of 92, respirations 16. GENERAL: He is a well-developed, well-nourished white male, in no acute distress. NECK: Jugular venous pressure is normal. Carotid pulses are 2+ bilaterally and without bruits. CHEST: Reveals clear lungs uribe. CARDIAC: He has a regular rhythm and rate without S3, S4, murmur or rub. ABDOMEN: He has a soft, nontender abdomen. Bowel sounds are present. There is no definite hepatosplenomegaly. EXTREMITIES: Reveals no clubbing, cyanosis or edema. Peripheral pulses are normal throughout and symmetrical. LABORATORY DATA: EKG shows sinus rhythm, inferior and anterolateral infarct, age undetermined, possibly acute. Laboratory data includes hemoglobin 15.0, creatinine 3.3, potassium 3.3. Cardiac enzymes are pending. IMPRESSION: Acute pleuritic chest pain, abnormal EKG suggesting ST elevation myocardial infarction in this 22-year-old white male with no major past medical history. The etiology of his severe chest pain is not entirely clear. I suspect he has aortic dissection, which has possibly involved his right coronary ostium and possibly his renal arteries. With his elevated creatinine, CT angiography and MR angiography are not possible without increased risk of acute renal failure and need for dialysis. At this point, I would agree with transesophageal echocardiography to image his ascending aorta and a portion of his descending aorta as well as the aortic arch. Other diagnostic possibilities include acute myocarditis, acute myocardial infarction earlier this week with post infarct pericarditis. Overall doubt acute pulmonary embolism. RECOMMENDATION: Transesophageal echocardiography DERRICK. MD RORY Whitt/radhika , 03:29 AM , 03:36 AM MTDShreya
[2018-02-15] MEDS: Heparin Drip 25,000 UNIT/250 ML BAG IV.CONT PRN (04:39)
[2018-02-15 05:11] LABS: Creatine Kinase 41103 U/L (39-308)
[2018-02-15 05:43] LABS: CKMB Percent 1.2 % (0.0-4.0); Creatine Kinase MB 473.9 ng/mL (0.5-3.6)
--- NOTE | 2018-02-15 06:37 | P.HPCC ---
History of Present Illness Service: Critical care medicine Primary Care Physician: No Primary Care Physician Chief Complaint: Chest pain History of Present Illness: 22-year-old male with past medical history of cocaine abuse and tobacco abuse who presents to [facility] emergency department with subacute chest pain. 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 Symptoms lasted most of the afternoon. In the afternoon of 02/14/18 he awoke from a nap with left-sided sharp pleuritic chest pain. He was nauseated but had no vomiting. He has also noted that his calves are "sore" and he has tingling of his feet. EKG demonstrates ST elevation of II,III, aVF, V 2-V6 with qwaves. Troponin was >40. Based on these findings there was concern for aortic dissection (with concomitant RCA involvement) however his creatinine was 3.22. AMAIRANI and TTE were performed and demonstrated no evidence of aortic dissection. There is apical akinesis. He has acute rhabdomyolysis. BP R arm 126/82, L 119/70. No family history of CAD or VTE or thrombophilia. No recent fever, cough, flu- like symptoms, headache, myalgias, sore throat. Had "dark" urine last 2 days ( acute rhabdomyolysis) No recent travel. Says last used cocaine 2-3 weeks ago. Smoked marijuana tuesday 02/13. No anabolic steroids. - Diagnosis (1) ST elevation myocardial infarction (STEMI) in recovery phase (2) Acute renal insufficiency (3) Rhabdomyolysis Inpatient Certification: I certify that the inpatient services were ordered in accordance with Medicare regulations governing the order. 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 Reason for Use: Get High Crack/Cocaine Status: Active Route Used: Inhalation Frequency: COUPLE TIMES MONTH Last Used: "2-3 weeks ago" Reason for Use: Get High - Travel History Recent Travel in the [place] Within the Last 8 Weeks: No Recent Travel Out of the Country Within the Last 8 Weeks: No - Immunization History Tetanus Immunization: Unsure Hx Influenza Vaccine This Season: No Medications and Allergies Active Medications: Active Medications Nitroglycerin/Dextrose (Nitroglycerin Drip Premix) 50 mg in 250 mls @ 0 mls/hr IV.CONT TITRATE PRN; Protocol PRN Reason: Per Protocol Last Titration: 02/15/18 05:41 Dose: 50 mcg/min, 15 mls/hr Sodium Chloride (Ns Inj) 1,000 mls @ 30 mls/hr IV.SIG .Q24H CHANCE Stop: 02/16/18 02:29 Last Admin: 02/15/18 02:43 Dose: 30 mls/hr Sodium Chloride (Ns Inj) 1,000 mls @ 0 mls/hr IV.SIG BOLUS CHANCE Heparin Sodium/Dextrose (Heparin/D5w 25,000 U/250 Ml) 25,000 unit in 250 mls @ 0 mls/hr IV.CONT TITRATE PRN; Protocol PRN Reason: Per Protocol Last Admin: 02/15/18 04:39 Dose: 900 units/hr, 9 mls/hr Sodium Chloride (Ns Flush) 2 ml IV.FLUSH PRN PRN PRN Reason: FLUSH AFTER USING IV ACCESS Allergies Allergy/AdvReac Type Severity Reaction Status Date / Time No Known Allergies Allergy Unverified 02/15/18 02:21 Home Medications Medication Instructions Recorded Confirmed Type No Known Home Medications 02/15/18 02/15/18 History Results - Labs CBC & Chem 7: 02/15/18 02:20 02/15/18 05:10 Labs: Short CBC 02/15/18 Range/Units 02:20 WBC 15.8 H (4.0-11.0) th/mm3 Hgb 15.5 (13.0-17.0) gm/dL Hct 44.4 (39.0-51.0) % Plt Count 228 (150-450) th/mm3 BMP 02/15/18 02:20 Calcium 8.0 L Cardiac Enzymes 02/15/18 Range/Units 02:20 Total Creatine Kinase 55248 H (39-308) U/L CK-MB (CK-2) 473.9 H (0.5-3.6) ng/mL Troponin I Greater than 40.00 H* (0.02-0.05) ng/mL - Imaging Impressions Chest X-Ray 02/15/18 02:23 CONCLUSION: No acute cardiopulmonary process. Lungs are clear. Exam Vital signs: Vital Signs 02/15/18 02:15 02/15/18 02:21 02/15/18 02:23 Temperature 98.2 F Pulse Rate 85 84 Respiratory Rate 18 Blood Pressure 130/80 Pulse Oximetry 98 98 02/15/18 02:52 02/15/18 03:01 02/15/18 03:06 Temperature Pulse Rate 81 84 86 Respiratory Rate 16 16 16 Blood Pressure 126/66 129/73 129/80 Pulse Oximetry 99 98 97 02/15/18 03:12 02/15/18 03:16 02/15/18 03:21 Temperature Pulse Rate 90 82 92 H Respiratory Rate 16 16 16 Blood Pressure 130/78 127/76 127/74 Pulse Oximetry 95 98 99 02/15/18 03:26 02/15/18 03:30 02/15/18 03:35 Temperature Pulse Rate 95 H 84 79 Respiratory Rate 16 16 16 Blood Pressure 118/69 124/67 123/71 Pulse Oximetry 99 98 96 02/15/18 04:40 02/15/18 05:10 02/15/18 05:26 Temperature Pulse Rate 74 74 85 Respiratory Rate 16 16 16 Blood Pressure 114/59 L 123/79 122/79 Pulse Oximetry 100 98 99 Intake & Output 02/14/18 02/14/18 02/15/18 06:59 18:59 06:59 Weight 77.111 kg Narrative: GENERAL: Well-nourished, well-developed patient who is laying in ED stretcher, alert. SKIN: Warm and dry. HEAD: Atraumatic. Normocephalic. EYES: Pupils equal and round 3 meters and reactive bilaterally.. No scleral icterus. No injection or drainage. ENT: No nasal bleeding or discharge. Mucous membranes pink and moist. Oropharynx without erythema. No cervical lymphadenopathy. NECK: Trachea midline. CARDIOVASCULAR: Regular rate and rhythm. No murmurs rubs or gallops. RESPIRATORY: Breathing comfortably no accessory muscle use. Clear to auscultation. Breath sounds equal bilaterally. GASTROINTESTINAL: Abdomen soft, non-tender, nondistended. MUSCULOSKELETAL: Extremities without cyanosis. +clubbing. There is swelling of left calf and ?palpable cord. Compartment is soft. Bounding DP/WRINKLE CHASER/radial pulses bilaterally NEUROLOGICAL: Awake and alert. No obvious cranial nerve deficits. Strength 5 out of 5 in all extremities including plantar and dorsiflexion of the ankle. Sensation is intact despite report of parasthesias . DTRs 2+ Caprini VTE Risk Assessment Caprini VTE Risk Assessment: Moderate/High Risk (score >= 2) Caprini Risk Assessment Model: Point Value = 1 Point Value = 2 Point Value = 3 Point Value = 5 Age 41-60 Minor surgery BMI > 25 kg/m2 Swollen legs Varicose veins or History of unexplained or recurrent spontaneous Oral contraceptives or hormone replacement Sepsis (< 1 month) Serious lung disease, including pneumonia (< 1 month) Abnormal pulmonary function Acute myocardial infarction Congestive heart failure (< 1 month) History of inflammatory bowel disease Medical patient at bed rest Age 61-74 Arthroscopic surgery Major open surgery (> 45 min) Laparoscopic surgery (> 45 min) Malignancy Confined to bed (> 72 hours) Immobilizing plaster cast Central venous access Age >= 75 History of VTE Family history of VTE Factor V Leiden Prothrombin [id number] Lupus anticoagulant Anticardiolipin antibodies Elevated serum homocysteine Heparin-induced thrombocytopenia Other congenital or acquired thrombophilia Stroke (< 1 month) Elective arthroplasty Hip, pelvis, or leg fracture Acute spinal cord injury (< 1 month) Prophylaxis Regimen: Total Risk Factor Score Risk Level Prophylaxis Regimen 0-1 Low Early ambulation 2 Moderate Order ONE of the following: *Sequential Compression Device (SCD) *Heparin 5000 units SQ BID 3-4 Higher Order ONE of the following medications: *Heparin 5000 units SQ TID *Enoxaparin/Lovenox 40 mg SQ daily (WT < 150 kg, CrCl > 30 mL/min) *Enoxaparin/Lovenox 30 mg SQ daily (WT < 150 kg, CrCl > 10-29 mL/min) *Enoxaparin/Lovenox 30 mg SQ BID (WT < 150 kg, CrCl > 30 mL/min) AND/OR *Sequential Compression Device (SCD) 5 or more Highest Order ONE of the following medications: *Heparin 5000 units SQ TID (Preferred with Epidurals) *Enoxaparin/Lovenox 40 mg SQ daily (WT < 150 kg, CrCl > 30 mL/min) *Enoxaparin/Lovenox 30 mg SQ daily (WT < 150 kg, CrCl > 10-29 mL/min) *Enoxaparin/Lovenox 30 mg SQ BID (WT < 150 kg, CrCl > 30 mL/min) AND *Sequential Compression Device (SCD) Assessment and Plan - Problem List (1) ST elevation myocardial infarction (STEMI) in recovery phase Code(s): I21.3 - ST elevation (STEMI) myocardial infarction of unspecified site Status: Acute (2) Acute renal insufficiency Code(s): N28.9 - Disorder of kidney and ureter, unspecified Status: Acute (3) Rhabdomyolysis Code(s): M62.82 - Rhabdomyolysis Status: Acute - Assessment and Plan Plan: NEURO: Cocaine abuse EtOH abuse (prior ED visit for intoxication) Marijuana abuse tylenol/Lortab as needed for pain Thiamine/MVI/Folic acid. Patient denies daily drinking however will monitor for alcohol withdrawal RESP: Tobacco abuse NC wean as tolerated. Discussed tobacco and polysubstance cessation. CV: Subacute Inferolateral STEMI Apical akinesis Received aspirin 325 mg by EVAC. On NTG and heparin drip. Dr Vang evaluated and will hold off on cardiac catheterization at this time due to acute kidney injury and rhabdomyolysis in the setting of very delayed presentation. No aortic dissection on AMAIRANI. Evaluated abdominal aorta as well, no e/o dissection. ?vasospasm with infarct due to cocaine (pt denies, UDS pending) Sent hypercoagulable studies, CRP, ESR. No viral symptoms or findings c/w [place]. GI: Transaminase elevation - may be secondary to rhabdo, trend. cardiac diet FEN/RENAL: BK Oliguria Acute rhabdomyolysis May have ATN following delayed presentation of rhabdo. No UOP after 1 L NS bolus in the ED. Will give a dose of Lasix 40 mg IV. Trend CPK, creatinine, UOP, electrolytes. Check FeNa and urine eos. Insert Kitchen. ID: Monitor for signs and symptoms of infection HEME: Monitor CBC Followup BLE U/s. ENDO: Euglycemic. PROPH: SCD for DVT prophylaxis. Heparin drip as per above. Stress ulcer prophylaxis is not indicated. ACCESS: Peripheral IV providing adequate access at this time Full code Level 3 H&P
[2018-02-15 07:21] LABS: Albumin 3.4 g/dL (3.4-5.0); Anion Gap 12 meq/L (5-15); Blood Urea Nitrogen 43 mg/dL (7-18); Calcium 8.3 mg/dL (8.5-10.1); Carbon Dioxide 26.1 meq/L (21.0-32.0); Chloride 98 meq/L (98-107); Glomerular Filtration Rate 24 mL/min (>89); Glucose,Random 113 mg/dL (74-106); Potassium 3.7 meq/L (3.5-5.1); Sodium 136 meq/L (136-145)
[2018-02-15 07:22] LABS: Alanine Aminotransferase 499 U/L (12-78)
[2018-02-15 07:30] LABS: Alkaline Phosphatase 74 U/L (45-117); Phosphorus 4.2 mg/dL (2.5-4.9); Total Protein 6.9 g/dL (6.4-8.2)
[2018-02-15 07:43] LABS: Aspartate Aminotransferase 1570 U/L (15-37)
--- NOTE | 2018-02-15 07:44 | US ---
EXAM DATE: 02/15/2018 7:40 AM EDT AGE/SEX: 22 years / Male INDICATIONS: Bilateral leg pain. CLINICAL DATA: This is the patient's initial encounter. Patient reports that signs and symptoms have been present for 2 days and indicates a pain score of 4/10. MEDICAL/SURGICAL HISTORY: Arthritis. . Amputation of left index finger, left middle finger and left ring finger. COMPARISON: No prior exams available for comparison. TECHNIQUE: Venous ultrasound of both lower extremities was performed from the inguinal ligament to t he proximal calf. Real-time, color Doppler and spectral tracing, compression and augmentation techni ques were used. FINDINGS: Right Leg: Normal compression of the deep venous system from the inguinal region to the proximal luis antonio f. No echogenic clot is seen. Normal response of the venous system to augmentation and respiration. Left Leg: Normal compression of the deep venous system from the inguinal region to the proximal calf . No echogenic clot is seen. Normal response of the venous system to augmentation and respiration. Other: None. CONCLUSION: 1. No sonographic evidence for lower extremity DVT. Electronically signed by: Abhishek Marks MD 02/15/2018 7:43 AM EDT
[2018-02-15] MEDS ORDERED: Acetaminophen 325 MG Tablet PO PRN (07:52)
[2018-02-15] MEDS ORDERED: Bisacodyl 10 MG Supp RECTAL PRN (07:52)
[2018-02-15] MEDS ORDERED: Metoprolol Inj 5 MG/5 ML Vial IV.PUSH PRN (08:12)
[2018-02-15] MEDS: Sodium Bicarbonate 8.4% Inj 75 MEQ in Sodium Chloride 0.45 % Inj 925 ML IV.CONT SCH ×3 (09:05→19:45)
[2018-02-15] MEDS: Metoprolol Inj 5 MG/5 ML Vial IV.PUSH SCH ×3 (09:07→21:28)
[2018-02-15] MEDS: Senna/Docusate Sodium 8.6/50 MG Tablet PO SCH ×2 (09:07→21:29)
[2018-02-15] MEDS: Folic Acid 1 MG Tablet PO SCH (09:08)
[2018-02-15 09:56] LABS: Albumin 3.3 g/dL (3.4-5.0); Anion Gap 10 meq/L (5-15); Blood Urea Nitrogen 44 mg/dL (7-18); Calcium 8.3 mg/dL (8.5-10.1); Chloride 100 meq/L (98-107); Glomerular Filtration Rate 23 mL/min (>89); Glucose,Random 113 mg/dL (74-106); Lipase 58 U/L (73-393); Magnesium 2.6 mg/dL (1.5-2.5); Potassium 3.5 meq/L (3.5-5.1); Sodium 137 meq/L (136-145)
[2018-02-15 10:02] LABS: Bilirubin,Urine Negative (Negative); Clarity,Urine Hazy (Clear); Color,Urine Yellow (Yellw/Straw); Glucose,Urine (UA) Negative (Negative); Leukocyte Esterase,Urine Negative (Negative); Nitrite,Urine Negative (Negative); Specific Gravity,Urine 1.008 (1.002-1.035)
--- NOTE | 2018-02-15 10:16 | ECHRPT ---
Indication: CHEST PAIN CONCLUSIONS Normal left ventricular size. Wall thickness is normal. The left ventricular systolic function is severely reduced with an estimated ejection fraction of 25 %. Only the basal segments of the left ventricle contract; all other areas are akinetic. No valvular abnormalities. No definite evidence for aortic dissection in the aortic root, ascending aorta, aortic arch, thoraci c descending aorta. BP: / HR: Rhythm: MEASUREMENTS (Male / Female) Normal Values Technical Quality: 2D ECHO LV Diastolic Diameter VINCE 6.1 cm 4.2 - 5.9 / 3 LVPW Diastolic Thickness 0.8 cm 0.6 - 1 .0 / 0.6 - 0.9 cm LV Systolic Diameter PLAX 5.4 cm LV Relative Wall Thicknes 0.3 IVS Diastolic Thickness 0.8 cm 0.6 - 1.0 / 0.6 - 0.9 cm Medications Complications Proc. Components FINDINGS LEFT VENTRICLE Normal left ventricular size. Wall thickness is normal. The left ventricular systolic function is severely reduced with an estimated ejection fraction of 25 %. Only the basal segments of the left ventricle contract; all other areas are akinetic. RIGHT VENTRICLE Normal right ventricular size and systolic function. LEFT ATRIUM The left atrial size is normal. RIGHT ATRIUM The right atrial size is normal. ATRIAL SEPTUM Normal atrial septal thickness without atrial level shunting by limited color doppler interrogation. AORTA The aortic root and proximal ascending aorta are normal in size on limited imaging. MITRAL VALVE Structurally normal mitral valve. No mitral valve stenosis or regurgitation. AORTIC VALVE Trileaflet aortic valve. No aortic valve stenosis or regurgitation. TRICUSPID VALVE Structurally normal tricuspid valve. No tricuspid valve stenosis or regurgitation. VESSELS The inferior vena cava is normal in size. PULMONARY VALVE The pulmonary valve is not well visualized. PERICADIUM No pericardial effusion. Wesley Vang MD (Electronically Signed) Final Date:15 February 2018 10:14
[2018-02-15 10:23] LABS: Alanine Aminotransferase 466 U/L (12-78); Alkaline Phosphatase 73 U/L (45-117); Aspartate Aminotransferase 1325 U/L (15-37); Phosphorus 4.1 mg/dL (2.5-4.9); Total Protein 6.8 g/dL (6.4-8.2)
[2018-02-15 11:16] LABS: CKMB Percent 1.1 % (0.0-4.0); Creatine Kinase 25347 U/L (39-308); Creatine Kinase MB 276.8 ng/mL (0.5-3.6)
[2018-02-15] MEDS ORDERED: Morphine Sulfate Inj 2 MG/ML Vial ONE (13:10)
--- NOTE | 2018-02-15 13:10 | ECG ---
Date Performed: 02/15/2018 Time Performed: 02:16:48 PTAGE: 22 years EKG: Sinus rhythm POSSIBLE RIGHT VENTRICULAR HYPERTROPHY INFERIOR MYOCARDIAL INFARCTION ANTEROLATERAL MYOCARDIAL INFAR CTION ACUTE MS INTERPRETATION BASED ON A DEFAULT AGE OF 40 YEARS NO PREVIOUS TRACING DOCTOR: Brandt Lowry Interpretating Date/Time 02/15/2018 13:09:22
[2018-02-15 13:46] LABS: Albumin 3.4 g/dL (3.4-5.0); Anion Gap 9 meq/L (5-15); Blood Urea Nitrogen 42 mg/dL (7-18); Calcium 8.5 mg/dL (8.5-10.1); Chloride 97 meq/L (98-107); Glomerular Filtration Rate 23 mL/min (>89); Glucose,Random 99 mg/dL (74-106); Magnesium 2.3 mg/dL (1.5-2.5); Sodium 137 meq/L (136-145)
[2018-02-15 13:47] LABS: Alanine Aminotransferase 483 U/L (12-78); Phosphorus 3.4 mg/dL (2.5-4.9)
[2018-02-15 14:13] LABS: Alkaline Phosphatase 80 U/L (45-117); Aspartate Aminotransferase 1244 U/L (15-37); Total Protein 6.7 g/dL (6.4-8.2)
[2018-02-15 14:14] LABS: Hepatitits B Surface Antigen Nonreactive (Nonreactive)
[2018-02-15 14:38] LABS: Creatine Kinase 24341 U/L (39-308)
[2018-02-15 14:39] LABS: CKMB Percent 0.9 % (0.0-4.0); Creatine Kinase MB 212.1 ng/mL (0.5-3.6)
[2018-02-15 14:42] LABS: Hepatitis A IgM Antibody Nonreactive (Nonreactive)
[2018-02-15 19:58] LABS: Amphetamine Screen,Urine Neg (Neg); Barbiturate Screen,Urine Neg (Neg); Cannabinoid Screen,Urine Pos (Neg); Cocaine Screen,Urine Pos (Neg)
[2018-02-15 19:59] LABS: Opiate Screen,Urine Pos (Neg)
[2018-02-15] MEDS: Morphine Inj 4 MG/ML Vial IV.PUSH PRN (21:15)
[2018-02-16] MEDS: Sodium Bicarbonate 8.4% Inj 75 MEQ in Sodium Chloride 0.45 % Inj 925 ML IV.CONT SCH ×5 (00:45→22:11)
[2018-02-16] MEDS: Metoprolol Inj 5 MG/5 ML Vial IV.PUSH SCH ×3 (03:18→16:26)
[2018-02-16 03:55] LABS: Baso # (Auto) 0.1 th/mm3 (0.0-0.2); Eos # (Auto) 0.1 th/mm3 (0.0-0.4); Eos % (Auto) 1.1 % (0.0-4.0); Hematocrit 35.9 % (39.0-51.0); Hemoglobin 12.4 gm/dL (13.0-17.0); Lymph # (Auto) 1.8 th/mm3 (1.0-4.8); Lymph % (Auto) 20.7 % (9.0-44.0); Mean Corpuscular HGB Conc 34.6 % (32.0-36.0); Mean Corpuscular Volume 92.4 fL (80.0-100.0); Mean Platelet Volume 7.6 fL (7.0-11.0); Mono # (Auto) 0.5 th/mm3 (0.0-0.9); Mono % (Auto) 6.2 % (0.0-8.0); Platelet Count 188 th/mm3 (150-450); Red Blood Count 3.89 mil/mm3 (4.50-5.90); Red Cell Distribution Width 12.4 % (11.6-17.2); White Blood Count 8.5 th/mm3 (4.0-11.0)
[2018-02-16] MEDS ORDERED: Chlorhexidine Gluconate 2% 1 Pack (2 Cloths) TOPICAL PRN (04:00)
[2018-02-16 04:05] LABS: Activated Partial Thrombo Time 32.3 sec (24.3-30.1)
[2018-02-16 04:19] LABS: Alanine Aminotransferase 341 U/L (12-78); Albumin 2.6 g/dL (3.4-5.0); Anion Gap 9 meq/L (5-15); Aspartate Aminotransferase 785 U/L (15-37); Blood Urea Nitrogen 36 mg/dL (7-18); Calcium 7.9 mg/dL (8.5-10.1); Carbon Dioxide 34.3 meq/L (21.0-32.0); Chloride 95 meq/L (98-107); Glomerular Filtration Rate 23 mL/min (>89); Glucose,Random 100 mg/dL (74-106); Magnesium 2.2 mg/dL (1.5-2.5); Phosphorus 3.5 mg/dL (2.5-4.9); Potassium 3.6 meq/L (3.5-5.1); Sodium 138 meq/L (136-145)
[2018-02-16] MEDS: Nitroglycerin Drip Premix 50 MG/250 ML BOTTLE IV.CONT PRN (04:19)
[2018-02-16] MEDS: Heparin Drip 25,000 UNIT/250 ML BAG IV.CONT PRN (04:21)
[2018-02-16] MEDS: Chlorhexidine Gluconate 2% 1 Pack (2 Cloths) TOPICAL SCH (04:26)
[2018-02-16 05:28] LABS: Alkaline Phosphatase 55 U/L (45-117); Creatine Kinase 13369 U/L (39-308)
[2018-02-16 05:52] LABS: CKMB Percent 0.4 % (0.0-4.0); Creatine Kinase MB 48.7 ng/mL (0.5-3.6)
[2018-02-16] MEDS: Morphine Inj 4 MG/ML Vial IV.PUSH PRN ×3 (07:14→21:03)
--- NOTE | 2018-02-16 08:45 | P.PNCA ---
Subjective Interval history: Improving left parasternal CP. No dyspnea. No dizziness, palpitations. Physical Exam Vital signs: Vital Signs 02/15/18 09:00 02/15/18 10:00 02/15/18 11:00 Temperature Pulse Rate 83 72 86 Respiratory Rate 16 14 12 Blood Pressure 133/80 114/72 Pulse Oximetry 98 97 02/15/18 12:00 02/15/18 13:00 02/15/18 14:00 Temperature 98.9 F 98.9 F Pulse Rate 81 82 98 H Respiratory Rate 14 Blood Pressure 127/72 102/72 122/76 Pulse Oximetry 99 98 02/15/18 14:12 02/15/18 15:00 02/15/18 16:00 Temperature Pulse Rate 81 Respiratory Rate 14 14 Blood Pressure 114/72 115/71 Pulse Oximetry 98 02/15/18 17:00 02/15/18 20:00 02/15/18 21:30 Temperature 99.1 F Pulse Rate 89 Respiratory Rate 18 16 Blood Pressure 122/79 Pulse Oximetry 98 98 02/16/18 00:00 02/16/18 04:00 02/16/18 08:00 Temperature 99.0 F 98.5 F Pulse Rate 92 H 90 75 Respiratory Rate 16 16 16 Blood Pressure 122/79 131/76 124/75 Pulse Oximetry 97 93 L 98 Intake & Output 02/15/18 02/16/18 02/16/18 18:59 06:59 18:59 Intake Total 1730 / 1730 4190 / 4190 Output Total 2700 / 2700 2200 / 2200 Balance -970 / -970 1989 / 1989 Weight 82 kg Intake: IV 1250 / 1250 3500 / 3500 Heparin/D5W 25,000 U/250 mL 25, 250 / 250 000 unit In 250 ml @ Per Protocol IV.CONT TITRATE PRN Rx #:[id number] Nitroglycerin Drip Premix 50 mg 250 / 250 250 / 250 In 250 ml @ Per Protocol IV. CONT TITRATE PRN Rx#:[id number] Sodium Bicarbonate 8.4% Inj 75 1000 / 1000 3000 / 3000 MEQ In 1/2 Normal Saline Inj 925 ML @ 200 mls/hr IV.CONT . Q5H [facility] Rx#:[id number] Oral 480 / 480 690 / 690 Output: Urine 2700 / 2700 2200 / 2200 Other: # Bowel Movements 0 - Constitutional no acute distress - Routine Neck Exam Absent: JVD - Routine Respiratory Exam Present: CTA bilaterally - Routine Cardiovascular Exam Present: RRR, S1, S2. Absent: murmur, gallop - Routine Abdominal Exam Present: soft, normoactive bowel sounds. Absent: tenderness, organomegaly - Routine Extremities Exam Absent: cyanosis, clubbing, edema Assessment and Plan - Assessment (1) ST elevation (STEMI) myocardial infarction Code(s): I21.3 - ST elevation (STEMI) myocardial infarction of unspecified site Status: Acute Plan: Overall stable s/p suspected STEMI. Difficult to tell if patient truly has obstructive CAD (or congenital coronary anomaly), or had severe coronary vasospasm from cocaine, or has Tako Tsubo syndrome. In any case, recommend medical therapy. No beta francois for now with cocaine use, no KVNG-I or ARB with renal insufficiency. Recommend daily aspirin. Can stop heparin. Can move out of ICU. (2) Cardiomyopathy Code(s): I42.9 - Cardiomyopathy, unspecified Status: Acute Plan: EF about 25% by echo. Overall compensated. No CHF by current exam. No beta francois for now with cocaine use, no KVNG-I or ARB with renal insufficiency. - Plan Code Status: full code Discussed Condition With: patient (1) ST elevation (STEMI) myocardial infarction Qualifiers: Involved coronary artery: unspecified coronary artery Qualified Code(s): I21.3 - ST elevation (STEMI) myocardial infarction of unspecified site (2) Cardiomyopathy Qualifiers: Cardiomyopathy type: unspecified Qualified Code(s): I42.9 - Cardiomyopathy, unspecified
[2018-02-16] MEDS: Folic Acid 1 MG Tablet PO SCH (09:21)
[2018-02-16] MEDS: Senna/Docusate Sodium 8.6/50 MG Tablet PO SCH ×2 (09:22→21:04)
--- NOTE | 2018-02-16 10:11 | P.PNCC ---
Subjective Subjective Remarks/Hospital Course: 22-year-old male with past medical history of cocaine abuse and tobacco abuse who presents to [facility] emergency department with subacute chest pain. 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 Symptoms lasted most of the afternoon. In the afternoon of 02/14/18 he awoke from a nap with left-sided sharp pleuritic chest pain. He was nauseated but had no vomiting. He has also noted that his calves are "sore" and he has tingling of his feet. EKG demonstrates ST elevation of II,III, aVF, V 2-V6 with qwaves. Troponin was >40. Based on these findings there was concern for aortic dissection (with concomitant RCA involvement) however his creatinine was 3.22. AMAIRANI and TTE were performed and demonstrated no evidence of aortic dissection. There is apical akinesis. He has acute rhabdomyolysis. BP R arm 126/82, L 119/70. No family history of CAD or VTE or thrombophilia. No recent fever, cough, flu-like symptoms, headache, myalgias, sore throat. Had "dark" urine last 2 days (acute rhabdomyolysis). No recent travel. Says last used cocaine 2-3 weeks ago. Smoked marijuana tuesday 02/13. No anabolic steroids. SUBJ 02/16: Remains in the ICU on nitro drip, intermittent chest pain. Creatinine 3.32. Urine output remains excellent. There is persistent ST elevation on EKG inferolaterally. Troponin remains more than 40. AMAIRANI showed normal left ventricular size. Wall thickness is normal. LV systolic function is severely reduced with an estimated ejection fraction of 25%. Only the basal segments of the left ventricle contract; all other areas are akinetic. Objective Vital Signs / I&O: Vital Signs 02/15/18 11:00 02/15/18 12:00 02/15/18 13:00 Temperature 98.9 F Pulse Rate 86 81 82 Respiratory Rate 12 Blood Pressure 127/72 102/72 Pulse Oximetry 99 02/15/18 14:00 02/15/18 14:12 02/15/18 15:00 Temperature 98.9 F Pulse Rate 98 H 81 Respiratory Rate 14 14 14 Blood Pressure 122/76 114/72 Pulse Oximetry 98 02/15/18 16:00 02/15/18 17:00 02/15/18 20:00 Temperature 99.1 F Pulse Rate 89 Respiratory Rate 18 Blood Pressure 115/71 122/79 Pulse Oximetry 98 98 98 02/15/18 21:30 02/16/18 00:00 02/16/18 04:00 Temperature 99.0 F Pulse Rate 92 H 90 Respiratory Rate 16 16 16 Blood Pressure 122/79 131/76 Pulse Oximetry 97 93 L 02/16/18 08:00 Temperature 98.5 F Pulse Rate 75 Respiratory Rate 16 Blood Pressure 124/75 Pulse Oximetry 98 Intake & Output 02/15/18 02/16/18 02/16/18 18:59 06:59 18:59 Intake Total 1730 / 1730 4190 / 4190 Output Total 2700 / 2700 2200 / 2200 Balance -970 / -970 1989 Weight 82 kg Intake: IV 1250 / 1250 3500 / 3500 Heparin/D5W 25,000 U/250 mL 25, 250 / 250 000 unit In 250 ml @ Per Protocol IV.CONT TITRATE PRN Rx #:[id number] Nitroglycerin Drip Premix 50 mg 250 / 250 250 / 250 In 250 ml @ Per Protocol IV. CONT TITRATE PRN Rx#:[id number] Sodium Bicarbonate 8.4% Inj 75 1000 / 1000 3000 / 3000 MEQ In 1/2 Normal Saline Inj 925 ML @ 200 mls/hr IV.CONT . Q5H [facility] Rx#:[id number] Oral 480 / 480 690 / 690 Output: Urine 2700 / 2700 2200 / 2200 Other: # Bowel Movements 0 Result Diagrams: 02/16/18 03:45 02/16/18 03:45 Other Results: GENERAL: Well-nourished, well-developed patient who is laying in ICU bed. SKIN: Warm and dry. HEAD: Atraumatic. Normocephalic. EYES: Pupils equal and round 3 meters and reactive bilaterally. ENT: No nasal bleeding or discharge. Mucous membranes pink and moist. Oropharynx without erythema. No cervical lymphadenopathy. NECK: Trachea midline. CARDIOVASCULAR: Regular rate and rhythm. No murmurs rubs or gallops. Mild tenderness to palpation on the right sternal border RESPIRATORY: Breathing comfortably no accessory muscle use. Clear to auscultation. Breath sounds equal bilaterally. GASTROINTESTINAL: Abdomen soft, non-tender, nondistended. MUSCULOSKELETAL: Extremities without cyanosis. +clubbing. There is swelling of left calf and ?palpable cord. Compartment is soft. 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 No obvious cranial nerve deficits. Strength 5 out of 5 in all extremities including plantar and dorsiflexion of the ankle. Sensation is intact despite report of parasthesias . DTRs 2+ Assessment and Plan - Problem List (1) ST elevation myocardial infarction (STEMI) in recovery phase Code(s): I21.3 - ST elevation (STEMI) myocardial infarction of unspecified site Status: Acute (2) Acute renal insufficiency Code(s): N28.9 - Disorder of kidney and ureter, unspecified Status: Acute (3) Rhabdomyolysis Code(s): M62.82 - Rhabdomyolysis Status: Acute - Assessment and Plan Plan: NEURO: Cocaine abuse EtOH abuse (prior ED visit for intoxication) Marijuana abuse tylenol/Lortab as needed for pain Thiamine/MVI/Folic acid. Patient denies daily drinking however will monitor for alcohol withdrawal UDS positive for cocaine, cannabinoids and opiates RESP: Tobacco abuse NC wean as tolerated. Discussed tobacco and polysubstance cessation. CV: Subacute Inferolateral STEMI vs Takotsubo cardiomyopathy Apical akinesis Severe cardiomyopathy ejection fraction 25% Received aspirin 325 mg by EVAC. Continue aspirin 81 mg daily Cannot use beta-blockers due to cocaine use, cannot use KVNG inhibitors secondary to renal failure. Start Imdur 30 mg daily, add hydralazine and 24 hours if blood pressure can tolerate On NTG and heparin drip. Discontinue both, start MD your 30 mg daily, change heparin to subcu [address] Vang evaluated and will hold off on cardiac catheterization at this time due to acute kidney injury and rhabdomyolysis in the setting of very delayed presentation. No aortic dissection on AMAIRANI. Evaluated abdominal aorta as well, no e/o dissection. ?vasospasm with infarct due to cocaine (pt denies, UDS pending) vs STEMI vs Takotsubo cardiomyopathy No viral symptoms or findings c/w Kawasaki. GI: Transaminase elevation - may be secondary to rhabdo, trend. cardiac diet FEN/RENAL: BK Acute rhabdomyolysis May have ATN following delayed presentation of rhabdo. Urine output excellent, creatinine remains high at 3.3 today Continue IV hydration Trend CPK, creatinine, UOP, electrolytes. Maintain Kitchen. Nephrology consult ID: Monitor for signs and symptoms of infection HEME: Monitor CBC Followup BLE U/s. ENDO: Euglycemic. PROPH: SCD for DVT prophylaxis. Heparin sq as per above. Stress ulcer prophylaxis is not indicated. ACCESS: Peripheral IV providing adequate access at this time Full code Level 3 Consult hospitalist to assume care in am. Transfer to [facility] if stable during daytime
[2018-02-16] MEDS: Isosorbide Mononitrate 30 MG ER 24HR Tablet (Imdur) PO SCH (10:55)
[2018-02-16 11:07] LABS: Albumin 2.6 g/dL (3.4-5.0); Anion Gap 7 meq/L (5-15); Aspartate Aminotransferase 762 U/L (15-37); Blood Urea Nitrogen 33 mg/dL (7-18); Calcium 8.3 mg/dL (8.5-10.1); Carbon Dioxide 35.7 meq/L (21.0-32.0); Chloride 97 meq/L (98-107); Glomerular Filtration Rate 25 mL/min (>89); Glucose,Random 124 mg/dL (74-106); Magnesium 2.3 mg/dL (1.5-2.5); Potassium 3.3 meq/L (3.5-5.1); Sodium 140 meq/L (136-145)
[2018-02-16 11:36] LABS: Alanine Aminotransferase 326 U/L (12-78); Alkaline Phosphatase 54 U/L (45-117); Creatine Kinase 12756 U/L (39-308); Phosphorus 3.1 mg/dL (2.5-4.9); Total Protein 6.1 g/dL (6.4-8.2)
[2018-02-16 12:05] LABS: CKMB Percent 0.3 % (0.0-4.0); Creatine Kinase MB 37.8 ng/mL (0.5-3.6)
--- NOTE | 2018-02-16 13:35 | ECG ---
Date Performed: 02/15/2018 Time Performed: 18:29:12 PTAGE: 22 years EKG: Sinus rhythm . Right axis deviation Extensive infarct - likely recent Abnormal ECG PREVIOUS TRACING : 02/15/2018 02.16 Since the previous tracing, no significant change noted DOCTOR: Octavio Mccullough Interpretating Date/Time 02/16/2018 13:33:25
--- NOTE | 2018-02-16 18:19 | P.CONNP ---
<Gloria Martinez - Last Filed: 02/16/18 18:02> History of Present Illness Service: Nephrology Consult date: 02/16/18 Requesting Physician: Luther Robledo Reason for Consult: Acute kidney injury Primary Care Provider: No Primary Care Physician Family Provider: No Primary Care Physician Chief Complaint: Chest pain History of Present Illness: Patient is a 22-year-old male with past medical history of cocaine abuse. Presents to [facility] emergency department with subacute chest pain. 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 Per cardiology note suspected STEMI, overall stable now. EF of 25 %. Also note to have rhabdomyolysis. Nephrology is consulted for acute kidney injury with a creatinine of 3.12. Patient is non oliguric. Baseline creatinine in 10/08 is 1.0. Denies any shortness of breath, nausea, vomiting or diarrhea. Reports chest discomfort and generalized muscle aches. 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 Reason for Use: Get High Crack/Cocaine Status: Active Route Used: Inhalation Frequency: COUPLE TIMES MONTH Last Used: "2-3 weeks ago" Reason for Use: Get High - Travel History Recent Travel in the [place] Within the Last 8 Weeks: No Recent Travel Out of the Country Within the Last 8 Weeks: No - Immunization History Tetanus Immunization: Unsure Hx Influenza Vaccine This Season: No Medications and Allergies Allergies Allergy/AdvReac Type Severity Reaction Status Date / Time No Known Allergies Allergy Unverified 02/15/18 02:21 Home Medications Medication Instructions Recorded Confirmed Type No Known Home Medications 02/15/18 02/15/18 History Active Medications: Active Medications Al Hydroxide/Mg Hydroxide (Milk Of Magnesia Liq) 30 ml PO Q12H PRN PRN Reason: Mild Constipation Aspirin (Ecotrin) 81 mg PO DAILY [facility] Last Admin: 02/16/18 09:23 Dose: 81 mg Bisacodyl (Dulcolax Supp) 10 mg RECTAL DAILY PRN PRN Reason: SEVERE CONSITIPATION Chlorhexidine Gluconate (Chlorhexidine 2% Cloth) 3 pack TOPICAL DAILY@0400 [facility] Stop: 02/21/18 03:59 Last Admin: 02/16/18 04:26 Dose: Not Given Chlorhexidine Gluconate (Chlorhexidine 2% Cloth) 3 pack TOPICAL DAILY@0400 PRN PRN Reason: Extra cloth needed Stop: 02/21/18 03:59 Folic Acid (Folic Acid) 1 mg PO DAILY [facility] Last Admin: 02/16/18 09:21 Dose: 1 mg Heparin Sodium (Porcine) (Heparin Inj) 5,000 units SQ Q12HR [facility] Sodium Chloride (Ns Inj) 1,000 mls @ 0 mls/hr IV.SIG BOLUS [facility] Sodium Bicarbonate 75 meq/ (Sodium Chloride) 1,000 mls @ 200 mls/hr IV.CONT .Q5H [facility] Last Admin: 02/16/18 16:25 Dose: 200 mls/hr Isosorbide Mononitrate (Imdur) 30 mg PO DAILY@0700 [facility] Last Admin: 02/16/18 10:55 Dose: 30 mg Lactulose (Lactulose Liq) 30 ml PO DAILY PRN PRN Reason: SEVERE CONSITIPATION Morphine Sulfate (Morphine Inj) 2 mg IV.PUSH Q2H PRN PRN Reason: PAIN 1-10 Last Admin: 02/16/18 18:00 Dose: 2 mg Multivitamins (Theragran) 1 tab PO DAILY [facility] Last Admin: 02/16/18 09:21 Dose: 1 tab Senna/Docusate Sodium (Maile-Colace) 1 tab PO BID [facility] Last Admin: 02/16/18 09:22 Dose: 1 tab Sennosides (Senokot) 17.2 mg PO Q12H PRN PRN Reason: Moderate Constipation Sodium Chloride (Ns Flush) 2 ml IV.FLUSH BID [facility] Last Admin: 08/27/18 09:22 Dose: 2 ml Sodium Chloride (Ns Flush) 2 ml IV.FLUSH UNSCH PRN PRN Reason: FLUSH AFTER USING IV ACCESS Last Admin: 02/16/18 04:20 Dose: 2 ml Thiamine HCl (Vitamin B1) 100 mg PO DAILY [facility] Last Admin: 02/16/18 09:21 Dose: 100 mg Exam Vital signs: Vital Signs 02/15/18 20:00 02/15/18 21:30 02/16/18 00:00 Temperature 99.1 F 99.0 F Pulse Rate 89 92 H Respiratory Rate 18 16 16 Blood Pressure 122/79 122/79 Pulse Oximetry 98 97 02/16/18 04:00 02/16/18 07:00 02/16/18 07:30 Temperature Pulse Rate 90 82 Respiratory Rate 16 Blood Pressure 131/76 Pulse Oximetry 93 L 96 02/16/18 08:00 02/16/18 10:00 02/16/18 11:00 Temperature 98.5 F 98.3 F Pulse Rate 75 74 Respiratory Rate 16 16 Blood Pressure 124/75 108/79 Pulse Oximetry 98 96 97 02/16/18 12:00 02/16/18 14:00 02/16/18 15:00 Temperature 98.5 F Pulse Rate 87 Respiratory Rate 16 16 Blood Pressure 117/77 Pulse Oximetry 97 93 L 02/16/18 16:00 02/16/18 17:52 Temperature Pulse Rate Respiratory Rate 16 Blood Pressure Pulse Oximetry 92 L Intake & Output 02/15/18 02/16/18 02/16/18 18:59 06:59 18:59 Intake Total 1730 / 1730 4190 / 4190 3316 / 3316 Output Total 2700 / 2700 2200 / 2200 1800 / 1800 Balance -970 / -970 1989 / 1989 1516 / 1516 Weight 82 kg Intake: IV 1250 / 1250 3500 / 3500 2516 / 2516 Heparin/D5W 25,000 U/250 mL 25, 250 / 250 200 / 200 000 unit In 250 ml @ Per Protocol IV.CONT TITRATE PRN Rx #:[id number] Nitroglycerin Drip Premix 50 mg 250 / 250 250 / 250 316 / 316 In 250 ml @ Per Protocol IV. CONT TITRATE PRN Rx#:[id number] Sodium Bicarbonate 8.4% Inj 75 1000 / 1000 3000 / 3000 2000 / 2000 MEQ In 1/2 Normal Saline Inj 925 ML @ 200 mls/hr IV.CONT . Q5H [facility] Rx#:[id number] Oral 480 / 480 690 / 690 800 / 800 Output: Urine 2700 / 2700 2200 / 2200 1800 / 1800 Other: # Bowel Movements 0 Results - Lab Results 02/16/18 03:45 02/16/18 10:28 Most recent lab results Calcium 8.3 mg/dL (8.5-10.1) L 02/16/18 10:28 Phosphorus 3.1 mg/dL (2.5-4.9) 02/16/18 10:28 Magnesium 2.3 mg/dL (1.5-2.5) 02/16/18 10:28 Assessment and Plan - Assessment (1) Acute renal insufficiency Code(s): N28.9 - Disorder of kidney and ureter, unspecified Status: Acute Plan: Acute kidney injury with a creatinine of 3.12 on day of consult. Creatinine noted on 10/05/17 of 1.0 Acute kidney injury possibly ATN related to rhabdomyolysis Plan Avoid nephrotoxins including IV contrast Will monitor urinary output, bmp, and CPK Continue IVF's Will order serology and renal ultrasound. Renal panel in AM <Esteban Sahu S - Last Filed: 02/17/18 13:58> History of Present Illness Primary Care Provider: No Primary Care Physician Family Provider: No Primary Care Physician [facility] - Medical History Medical History: Medical History (Last Reviewed 02/15/18 @ 03:02 by Rhina Mann MD) Amputation of left index finger Amputation of left middle finger Amputation of left ring finger Asthma - Family History Family History: Family History (Last Updated 02/15/18 @ 10:15 by Sonia Somers RN) Mother Family history of cancer Other No significant family history Medications and Allergies Active Medications: Active Medications Al Hydroxide/Mg Hydroxide (Milk Of Magnesia Liq) 30 ml PO Q12H PRN PRN Reason: Mild Constipation Aspirin (Ecotrin) 81 mg PO DAILY [facility] Last Admin: 02/17/18 08:10 Dose: 81 mg Bisacodyl (Dulcolax Supp) 10 mg RECTAL DAILY PRN PRN Reason: SEVERE CONSITIPATION Chlorhexidine Gluconate (Chlorhexidine 2% Cloth) 3 pack TOPICAL DAILY@0400 [facility] Stop: 02/21/18 03:59 Last Admin: 02/17/18 04:56 Dose: Not Given Chlorhexidine Gluconate (Chlorhexidine 2% Cloth) 3 pack TOPICAL DAILY@0400 PRN PRN Reason: Extra cloth needed Stop: 02/21/18 03:59 Folic Acid (Folic Acid) 1 mg PO DAILY [facility] Last Admin: 02/17/18 08:10 Dose: 1 mg Heparin Sodium (Porcine) (Heparin Inj) 5,000 units SQ Q12HR [facility] Last Admin: 02/17/18 08:10 Dose: 5,000 units Sodium Chloride (Ns Inj) 1,000 mls @ 0 mls/hr IV.SIG BOLUS [facility] Sodium Bicarbonate 75 meq/ (Sodium Chloride) 1,000 mls @ 100 mls/hr IV.CONT .Q10H [facility] Last Admin: 02/17/18 11:19 Dose: 100 mls/hr Isosorbide Mononitrate (Imdur) 30 mg PO DAILY@0700 [facility] Last Admin: 02/17/18 08:11 Dose: 30 mg Lactulose (Lactulose Liq) 30 ml PO DAILY PRN PRN Reason: SEVERE CONSITIPATION Morphine Sulfate (Morphine Inj) 2 mg IV.PUSH Q2H PRN PRN Reason: PAIN 1-10 Last Admin: 02/17/18 08:07 Dose: 2 mg Multivitamins (Theragran) 1 tab PO DAILY [facility] Last Admin: 02/17/18 08:10 Dose: 1 tab Senna/Docusate Sodium (Maile-Colace) 1 tab PO BID [facility] Last Admin: 02/17/18 08:10 Dose: 1 tab Sennosides (Senokot) 17.2 mg PO Q12H PRN PRN Reason: Moderate Constipation Sodium Chloride (Ns Flush) 2 ml IV.FLUSH BID [facility] Last Admin: 02/17/18 08:12 Dose: 2 ml Sodium Chloride (Ns Flush) 2 ml IV.FLUSH UNSCH PRN PRN Reason: FLUSH AFTER USING IV ACCESS Last Admin: 02/16/18 04:20 Dose: 2 ml Thiamine HCl (Vitamin B1) 100 mg PO DAILY [facility] Last Admin: 02/17/18 08:10 Dose: 100 mg Exam Vital signs: Vital Signs 02/16/18 14:00 02/16/18 15:00 02/16/18 16:00 Temperature 98.5 F Pulse Rate 87 Respiratory Rate 16 16 Blood Pressure 117/77 Pulse Oximetry 97 93 L 02/16/18 17:52 02/16/18 19:30 02/16/18 20:00 Temperature 98.8 F Pulse Rate 88 Respiratory Rate 20 Blood Pressure 127/85 Pulse Oximetry 92 L 95 95 02/16/18 21:15 02/17/18 00:00 02/17/18 04:00 Temperature 98.8 F Pulse Rate 86 75 Respiratory Rate 18 20 18 Blood Pressure 138/91 H 131/80 Pulse Oximetry 97 96 02/17/18 07:00 02/17/18 07:31 02/17/18 07:32 Temperature 98.2 F Pulse Rate 78 Respiratory Rate 16 16 Blood Pressure 135/93 H Pulse Oximetry 97 97 02/17/18 09:41 02/17/18 10:00 02/17/18 11:00 Temperature 98.3 F Pulse Rate 77 72 64 Respiratory Rate 16 Blood Pressure 132/81 Pulse Oximetry 96 02/17/18 11:25 02/17/18 12:00 Temperature 98.3 F Pulse Rate 79 60 Respiratory Rate 16 Blood Pressure 118/77 Pulse Oximetry 97 Intake & Output 02/16/18 02/17/18 02/17/18 18:59 06:59 18:59 Intake Total 3316 / 3316 2700 / 2700 2380 / 2380 Output Total 1800 / 1800 2600 / 2600 450 / 450 Balance 1516 / 1516 100 / 100 1930 / 1930 Weight 82.5 kg Intake: IV 2516 / 2516 1999 1900 / 1900 Heparin/D5W 25,000 U/250 mL 25, 200 / 200 000 unit In 250 ml @ Per Protocol IV.CONT TITRATE PRN Rx #:[id number] Nitroglycerin Drip Premix 50 mg 316 / 316 In 250 ml @ Per Protocol IV. CONT TITRATE PRN Rx#:[id number] Sodium Bicarbonate 8.4% Inj 75 1999 1900 / 1900 MEQ In 1/2 Normal Saline Inj 925 ML @ 100 mls/hr IV.CONT . Q10H [facility] Rx#:[id number] Oral 800 / 800 700 / 700 480 / 480 Output: Urine 1800 / 1800 2600 / 2600 450 / 450 Other: Date of Last Bowel Movement 02/14/18 # Bowel Movements 0 Results - Lab Results 02/17/18 04:13 02/17/18 04:13 Most recent lab results Calcium 8.3 mg/dL (8.5-10.1) L 02/17/18 04:13 Phosphorus 3.0 mg/dL (2.5-4.9) 02/17/18 04:13 Magnesium 2.0 mg/dL (1.5-2.5) 02/17/18 04:13 Assessment and Plan - Assessment (1) Acute renal insufficiency Code(s): N28.9 - Disorder of kidney and ureter, unspecified Status: Acute - Attending Attestation Patient seen and examined; records reviewed; agree with the plan and recommendations of the MET[employer]
[2018-02-16] MEDS: Heparin - SQ 10,000 UNITS/ML Vial SQ SCH (21:03)
[2018-02-17] MEDS: Sodium Bicarbonate 8.4% Inj 75 MEQ in Sodium Chloride 0.45 % Inj 925 ML IV.CONT SCH ×4 (03:15→16:03)
[2018-02-17 04:27] LABS: Baso % (Auto) 0.5 % (0.0-2.0); Eos # (Auto) 0.1 th/mm3 (0.0-0.4); Eos % (Auto) 1.7 % (0.0-4.0); Hematocrit 37.5 % (39.0-51.0); Hemoglobin 13.2 gm/dL (13.0-17.0); Lymph # (Auto) 1.4 th/mm3 (1.0-4.8); Lymph % (Auto) 16.8 % (9.0-44.0); Mean Corpuscular HGB Conc 35.3 % (32.0-36.0); Mean Corpuscular Hemoglobin 32.3 pg (27.0-34.0); Mean Corpuscular Volume 91.8 fL (80.0-100.0); Mean Platelet Volume 7.4 fL (7.0-11.0); Mono # (Auto) 0.5 th/mm3 (0.0-0.9); Mono % (Auto) 6.4 % (0.0-8.0); Neut # (Auto) 6.1 th/mm3 (1.8-7.7); Neut % (Auto) 74.6 % (16.0-70.0); Platelet Count 224 th/mm3 (150-450); Red Blood Count 4.08 mil/mm3 (4.50-5.90); Red Cell Distribution Width 12.5 % (11.6-17.2); White Blood Count 8.2 th/mm3 (4.0-11.0)
[2018-02-17 04:34] LABS: INR 0.9 Ratio; Prothrombin Time 9.6 sec (9.8-11.6)
[2018-02-17] MEDS: Chlorhexidine Gluconate 2% 1 Pack (2 Cloths) TOPICAL SCH (04:56)
[2018-02-17 04:57] LABS: Albumin 2.4 g/dL (3.4-5.0); Anion Gap 7 meq/L (5-15); Aspartate Aminotransferase 589 U/L (15-37); Blood Urea Nitrogen 31 mg/dL (7-18); Calcium 8.3 mg/dL (8.5-10.1); Carbon Dioxide 35.8 meq/L (21.0-32.0); Chloride 100 meq/L (98-107); Glomerular Filtration Rate 29 mL/min (>89); Glucose,Random 88 mg/dL (74-106); Potassium 3.7 meq/L (3.5-5.1); Sodium 143 meq/L (136-145)
[2018-02-17 05:23] LABS: Alanine Aminotransferase 284 U/L (12-78); Alkaline Phosphatase 49 U/L (45-117); Complement C3 118 mg/dL (90-180); Creatine Kinase 9580 U/L (39-308); Total Protein 5.9 g/dL (6.4-8.2)
[2018-02-17 06:03] LABS: CKMB Percent 0.2 % (0.0-4.0); Creatine Kinase MB 18.2 ng/mL (0.5-3.6)
[2018-02-17] MEDS ORDERED: Morphine Inj 4 MG/ML Vial IV.PUSH ONE (08:03)
--- NOTE | 2018-02-17 08:03 | P.PNCA ---
Subjective Interval history: Continued left lower, left parasternal, "sharp" CP, increases with deep inspiration. No dyspnea, dizziness, palpitations, orthopnea. Physical Exam Vital signs: Vital Signs 02/16/18 08:00 02/16/18 10:00 02/16/18 11:00 Temperature 98.5 F 98.3 F Pulse Rate 75 74 Respiratory Rate 16 16 Blood Pressure 124/75 108/79 Pulse Oximetry 98 96 97 02/16/18 12:00 02/16/18 14:00 02/16/18 15:00 Temperature 98.5 F Pulse Rate 87 Respiratory Rate 16 16 Blood Pressure 117/77 Pulse Oximetry 97 93 L 02/16/18 16:00 02/16/18 17:52 02/16/18 19:30 Temperature Pulse Rate Respiratory Rate 16 Blood Pressure Pulse Oximetry 92 L 95 02/16/18 20:00 02/16/18 21:15 02/17/18 00:00 Temperature 98.8 F 98.8 F Pulse Rate 88 86 Respiratory Rate 20 18 20 Blood Pressure 127/85 138/91 H Pulse Oximetry 95 97 02/17/18 04:00 02/17/18 07:00 02/17/18 07:31 Temperature 98.2 F Pulse Rate 75 78 Respiratory Rate 18 16 16 Blood Pressure 131/80 135/93 H Pulse Oximetry 96 97 02/17/18 07:32 Temperature Pulse Rate Respiratory Rate Blood Pressure Pulse Oximetry 97 Intake & Output 02/16/18 02/17/18 02/17/18 18:59 06:59 18:59 Intake Total 3316 / 3316 2700 / 2700 Output Total 1800 / 1800 2600 / 2600 Balance 1516 / 1516 100 / 100 Weight 82.5 kg Intake: IV 2516 / 2516 1999 / 1999 Heparin/D5W 25,000 U/250 mL 25, 200 / 200 000 unit In 250 ml @ Per Protocol IV.CONT TITRATE PRN Rx #:[id number] Nitroglycerin Drip Premix 50 mg 316 / 316 In 250 ml @ Per Protocol IV. CONT TITRATE PRN Rx#:[id number] Sodium Bicarbonate 8.4% Inj 75 1999 / 1999 1999 / 1999 MEQ In 1/2 Normal Saline Inj 925 ML @ 200 mls/hr IV.CONT . Q5H [facility] Rx#:[id number] Oral 800 / 800 700 / 700 Output: Urine 1800 / 1800 2600 / 2600 Other: # Bowel Movements 0 - Constitutional no acute distress - Routine Neck Exam Absent: JVD - Routine Respiratory Exam Present: CTA bilaterally - Routine Cardiovascular Exam Present: RRR, S1, S2. Absent: murmur, gallop, rubs - Routine Abdominal Exam Present: soft, normoactive bowel sounds. Absent: tenderness, organomegaly - Routine Extremities Exam Absent: cyanosis, clubbing, edema Assessment and Plan - Assessment (1) ST elevation (STEMI) myocardial infarction Code(s): I21.3 - ST elevation (STEMI) myocardial infarction of unspecified site Status: Acute Plan: Overall stable s/p suspected STEMI. Difficult to tell if patient truly has obstructive CAD (or congenital coronary anomaly), or had severe coronary vasospasm from cocaine, or has Tako Tsubo syndrome. In any case, recommend medical therapy. No beta francois for now with cocaine use, no KVNG-I or ARB with renal insufficiency. Recommend daily aspirin. Can stop heparin. Can move out of ICU. If patient's creatinine were to improve to < 2.0, recommend cath. Will f/u as needed rest of his stay. (2) Cardiomyopathy Code(s): I42.9 - Cardiomyopathy, unspecified Status: Acute Plan: EF about 25% by echo. Overall compensated. No CHF by current exam. No beta francois for now with cocaine use, no KVNG-I or ARB with renal insufficiency. - Plan Code Status: full code Discussed Condition With: patient (1) ST elevation (STEMI) myocardial infarction Qualifiers: Involved coronary artery: unspecified coronary artery Qualified Code(s): I21.3 - ST elevation (STEMI) myocardial infarction of unspecified site (2) Cardiomyopathy Qualifiers: Cardiomyopathy type: unspecified Qualified Code(s): I42.9 - Cardiomyopathy, unspecified
[2018-02-17] MEDS: Morphine Inj 4 MG/ML Vial IV.PUSH PRN ×3 (08:07→21:38)
[2018-02-17] MEDS: Folic Acid 1 MG Tablet PO SCH (08:10)
[2018-02-17] MEDS: Heparin - SQ 10,000 UNITS/ML Vial SQ SCH ×2 (08:10→21:38)
[2018-02-17] MEDS: Senna/Docusate Sodium 8.6/50 MG Tablet PO SCH ×2 (08:10→21:40)
[2018-02-17] MEDS: Isosorbide Mononitrate 30 MG ER 24HR Tablet (Imdur) PO SCH (08:11)
--- NOTE | 2018-02-17 09:35 | US ---
EXAM DATE: 02/17/2018 9:20 AM EDT AGE/SEX: 22 years / Male INDICATIONS: Increased BUN and Creatinine. CLINICAL DATA: This is the patient's initial encounter. Patient reports that signs and symptoms have been present for 1 day and indicates a pain score of 9/10. MEDICAL/SURGICAL HISTORY: Arthritis. Myocardial infarction. History of substance abuse. . Amp utation of left index finger, left middle finger and left ring finger. COMPARISON: No prior exams available for comparison. MEASUREMENTS: Right Kidney:__13. x 6.1 x 5.7 cm Left Kidney:__12.1 x 6.1 x 6.4 cm FINDINGS: Right Kidney: Normal echotexture and cortical thickness. No mass or hydronephrosis. A 7 mm Left Kidney: Normal echotexture and cortical thickness. No mass or hydronephrosis. 6.7 mm nonobstruct ing upper pole calculus suspected. There may also be a 4.5 mm stone at the lower pole, nonobstructing . Bladder: Within normal limits given the degree of distension. Other: None. CONCLUSION: 1. Nonobstructing left renal calculi are suspected. The study is otherwise unremarkable. Electronically signed by: Sen Eagle MD 02/17/2018 9:34 AM EDT
--- NOTE | 2018-02-17 11:01 | P.PNNP ---
Subjective Interval history: Resting on side. Denies any shortness of breath. Reports some back and left leg pain. <Gloria Martinez - Last Filed: 02/17/18 10:48> Physical Exam Vital signs: Vital Signs 02/16/18 11:00 02/16/18 12:00 02/16/18 14:00 Temperature 98.3 F Pulse Rate 74 Respiratory Rate 16 16 Blood Pressure 108/79 Pulse Oximetry 97 97 02/16/18 15:00 02/16/18 16:00 02/16/18 17:52 Temperature 98.5 F Pulse Rate 87 Respiratory Rate 16 16 Blood Pressure 117/77 Pulse Oximetry 93 L 92 L 02/16/18 19:30 02/16/18 20:00 02/16/18 21:15 Temperature 98.8 F Pulse Rate 88 Respiratory Rate 20 18 Blood Pressure 127/85 Pulse Oximetry 95 95 02/17/18 00:00 02/17/18 04:00 02/17/18 07:00 Temperature 98.8 F 98.2 F Pulse Rate 86 75 78 Respiratory Rate 20 18 16 Blood Pressure 138/91 H 131/80 135/93 H Pulse Oximetry 97 96 97 02/17/18 07:31 02/17/18 07:32 02/17/18 09:41 Temperature 98.3 F Pulse Rate 77 Respiratory Rate 16 16 Blood Pressure 132/81 Pulse Oximetry 97 96 02/17/18 10:00 Temperature Pulse Rate 72 Respiratory Rate Blood Pressure Pulse Oximetry Intake & Output 02/16/18 02/17/18 02/17/18 18:59 06:59 18:59 Intake Total 3316 / 3316 2700 / 2700 1480 / 1480 Output Total 1800 / 1800 2600 / 2600 450 / 450 Balance 1516 / 1516 100 / 100 1030 / 1030 Weight 82.5 kg Intake: IV 2516 / 2516 1999 / 1999 1000 / 1000 Heparin/D5W 25,000 U/250 mL 25, 200 / 200 000 unit In 250 ml @ Per Protocol IV.CONT TITRATE PRN Rx #:[id number] Nitroglycerin Drip Premix 50 mg 316 / 316 In 250 ml @ Per Protocol IV. CONT TITRATE PRN Rx#:[id number] Sodium Bicarbonate 8.4% Inj 75 1999 1000 / 1000 MEQ In 1/2 Normal Saline Inj 925 ML @ 200 mls/hr IV.CONT . Q5H [facility] Rx#:[id number] Oral 800 / 800 700 / 700 480 / 480 Output: Urine 1800 / 1800 2600 / 2600 450 / 450 Other: Date of Last Bowel Movement 02/14/18 # Bowel Movements 0 Narrative: GENERAL: Well-nourished, Alert and oriented SKIN: Warm and dry. EYES: Pupils equal and round 3 meters and reactive bilaterally. CARDIOVASCULAR: Regular rate and rhythm. No murmurs rubs or gallops. Mild tenderness to palpation on the right sternal border RESPIRATORY: Breathing comfortably no accessory muscle use. Clear to auscultation. Breath sounds equal bilaterally. GASTROINTESTINAL: Abdomen soft, non-tender, nondistended. MUSCULOSKELETAL: Extremities without cyanosis. Swelling of left calf. <Gloria Martinez - Last Filed: 02/17/18 10:48> Vital signs: Vital Signs 02/16/18 15:00 02/16/18 16:00 02/16/18 17:52 Temperature 98.5 F Pulse Rate 87 Respiratory Rate 16 16 Blood Pressure 117/77 Pulse Oximetry 93 L 92 L 02/16/18 19:30 02/16/18 20:00 02/16/18 21:15 Temperature 98.8 F Pulse Rate 88 Respiratory Rate 20 18 Blood Pressure 127/85 Pulse Oximetry 95 95 02/17/18 00:00 02/17/18 04:00 02/17/18 07:00 Temperature 98.8 F 98.2 F Pulse Rate 86 75 78 Respiratory Rate 20 18 16 Blood Pressure 138/91 H 131/80 135/93 H Pulse Oximetry 97 96 97 02/17/18 07:31 02/17/18 07:32 02/17/18 09:41 Temperature 98.3 F Pulse Rate 77 Respiratory Rate 16 16 Blood Pressure 132/81 Pulse Oximetry 97 96 02/17/18 10:00 02/17/18 11:00 02/17/18 11:25 Temperature 98.3 F Pulse Rate 72 64 79 Respiratory Rate 16 Blood Pressure 118/77 Pulse Oximetry 97 02/17/18 12:00 Temperature Pulse Rate 60 Respiratory Rate Blood Pressure Pulse Oximetry Intake & Output 02/16/18 02/17/18 02/17/18 18:59 06:59 18:59 Intake Total 3316 / 3316 2700 / 2700 2380 / 2380 Output Total 1800 / 1800 2600 / 2600 450 / 450 Balance 1516 / 1516 100 / 100 1930 / 1930 Weight 82.5 kg Intake: IV 2516 / 2516 1999 1900 / 1900 Heparin/D5W 25,000 U/250 mL 25, 200 / 200 000 unit In 250 ml @ Per Protocol IV.CONT TITRATE PRN Rx #:[id number] Nitroglycerin Drip Premix 50 mg 316 / 316 In 250 ml @ Per Protocol IV. CONT TITRATE PRN Rx#:[id number] Sodium Bicarbonate 8.4% Inj 75 1999 1900 / 1900 MEQ In 1/2 Normal Saline Inj 925 ML @ 100 mls/hr IV.CONT . Q10H [facility] Rx#:[id number] Oral 800 / 800 700 / 700 480 / 480 Output: Urine 1800 / 1800 2600 / 2600 450 / 450 Other: Date of Last Bowel Movement 02/14/18 # Bowel Movements 0 <Esteban Sahu - Last Filed: 02/17/18 14:07> Assessment and Plan - Assessment (1) Acute renal insufficiency Code(s): N28.9 - Disorder of kidney and ureter, unspecified Status: Acute Plan: Acute kidney injury with a creatinine of 3.12 on day of consult. Creatinine noted on 10/05/17 of 1.0 Acute kidney injury possibly ATN related to rhabdomyolysis Creatinine 3.12 ->2.69 Complements normal, AGUEDA and ANCA pending. U/S - Right Kidney: Normal echotexture and cortical thickness. No mass or hydronephrosis. Left Kidney: Normal echotexture and cortical thickness. No mass or hydronephrosis. 6.7 mm nonobstructing upper pole calculus suspected. There may also be a 4.5 mm stone at the lower pole, nonobstructing. Plan Avoid nephrotoxins including IV contrast Will monitor urinary output, bmp, and CPK Continue IVF's will decrease rate. Per records for possible heart cath when creatinine is less than 2. labs in AM <Gloria Martinez - Last Filed: 02/17/18 10:48> - Assessment (1) Acute renal insufficiency Code(s): N28.9 - Disorder of kidney and ureter, unspecified Status: Acute - Attending Attestation Patient seen and examined; records reviewed; agree with the plan and recommendations of the [employer] <Esteban Sahu S - Last Filed: 02/17/18 14:07>
--- NOTE | 2018-02-17 11:33 | P.PN ---
Subjective Interval history: Follow-up questionable ST elevation [place] versus Takotsubo cardiomyopathy / rhabdomyolysis/cardiomyopathy February 17, 2018-patient seen and examined, complaining of left flank pain. Reports some on and off chest pain. Physical Exam Vital signs: Vital Signs 02/16/18 12:00 02/16/18 14:00 02/16/18 15:00 Temperature 98.5 F Pulse Rate 87 Respiratory Rate 16 16 Blood Pressure 117/77 Pulse Oximetry 97 93 L 02/16/18 16:00 02/16/18 17:52 02/16/18 19:30 Temperature Pulse Rate Respiratory Rate 16 Blood Pressure Pulse Oximetry 92 L 95 02/16/18 20:00 02/16/18 21:15 02/17/18 00:00 Temperature 98.8 F 98.8 F Pulse Rate 88 86 Respiratory Rate 20 18 20 Blood Pressure 127/85 138/91 H Pulse Oximetry 95 97 02/17/18 04:00 02/17/18 07:00 02/17/18 07:31 Temperature 98.2 F Pulse Rate 75 78 Respiratory Rate 18 16 16 Blood Pressure 131/80 135/93 H Pulse Oximetry 96 97 02/17/18 07:32 02/17/18 09:41 02/17/18 10:00 Temperature 98.3 F Pulse Rate 77 72 Respiratory Rate 16 Blood Pressure 132/81 Pulse Oximetry 97 96 02/17/18 11:25 Temperature 98.3 F Pulse Rate 79 Respiratory Rate 16 Blood Pressure 118/77 Pulse Oximetry 97 Intake & Output 02/16/18 02/17/18 02/17/18 18:59 06:59 18:59 Intake Total 3316 / 3316 2700 / 2700 2380 / 2380 Output Total 1800 / 1800 2600 / 2600 450 / 450 Balance 1516 / 1516 100 / 100 1930 / 1930 Weight 82.5 kg Intake: IV 2516 / 2516 1999 1900 / 1900 Heparin/D5W 25,000 U/250 mL 25, 200 / 200 000 unit In 250 ml @ Per Protocol IV.CONT TITRATE PRN Rx #:[id number] Nitroglycerin Drip Premix 50 mg 316 / 316 In 250 ml @ Per Protocol IV. CONT TITRATE PRN Rx#:[id number] Sodium Bicarbonate 8.4% Inj 75 1999 1900 / 1900 MEQ In 1/2 Normal Saline Inj 925 ML @ 100 mls/hr IV.CONT . Q10H [facility] Rx#:[id number] Oral 800 / 800 700 / 700 480 / 480 Output: Urine 1800 / 1800 2600 / 2600 450 / 450 Other: Date of Last Bowel Movement 02/14/18 # Bowel Movements 0 Narrative: GENERAL: Well-nourished, Alert and oriented SKIN: Warm and dry. EYES: Pupils equal and round 3 meters and reactive bilaterally. CARDIOVASCULAR: Regular rate and rhythm. No murmurs rubs or gallops. Mild tenderness to palpation on the right sternal border RESPIRATORY: Breathing comfortably no accessory muscle use. Clear to auscultation. Breath sounds equal bilaterally. GASTROINTESTINAL: Abdomen soft, non-tender, nondistended. MUSCULOSKELETAL: Extremities without cyanosis. Swelling of left calf. Results - Labs CBC & Chem 7: 02/17/18 04:13 02/17/18 04:13 Laboratory Results - last 24 hr 02/16/18 02/17/18 02/17/18 10:28 04:13 04:13 WBC 8.2 RBC 4.08 L Hgb 13.2 Hct 37.5 L MCV 91.8 MCH 32.3 MCHC 35.3 RDW 12.5 Plt Count 224 MPV 7.4 Neut % (Auto) 74.6 H Lymph % (Auto) 16.8 [place] % (Auto) 6.4 Eos % (Auto) 1.7 Baso % (Auto) 0.5 Neut # (Auto) 6.1 Lymph # (Auto) 1.4 [place] # (Auto) 0.5 Eos # (Auto) 0.1 Baso # (Auto) 0.0 WBC Differential . Differential Comment Auto diff final PT INR Sodium Potassium Chloride Carbon Dioxide Anion Gap BUN Creatinine Estimated GFR Random Glucose Lactic Acid 0.7 Calcium Phosphorus 3.1 Magnesium Total Bilirubin 0.6 AST ALT 326 H Alkaline Phosphatase 54 Total Creatine Kinase 04477 H CK-MB (CK-2) 37.8 H CK-MB (CK-2) % 0.3 Troponin I 36.60 H* Total Protein 6.1 L Albumin Complement C3 Complement C4 02/17/18 02/17/18 04:13 04:13 WBC RBC Hgb Hct MCV MCH MCHC RDW Plt Count MPV Neut % (Auto) Lymph % (Auto) [place] % (Auto) Eos % (Auto) Baso % (Auto) Neut # (Auto) Lymph # (Auto) [place] # (Auto) Eos # (Auto) Baso # (Auto) WBC Differential Differential Comment PT 9.6 L INR 0.9 Sodium 143 Potassium 3.7 Chloride 100 Carbon Dioxide 35.8 H Anion Gap 7 BUN 31 H Creatinine 2.69 H Estimated GFR 29 L Random Glucose 88 Lactic Acid Calcium 8.3 L Phosphorus 3.0 Magnesium 2.0 Total Bilirubin 0.5 AST 589 H ALT 284 H Alkaline Phosphatase 49 Total Creatine Kinase 9580 H CK-MB (CK-2) 18.2 H CK-MB (CK-2) % 0.2 Troponin I 24.30 H* Total Protein 5.9 L Albumin 2.4 L Complement C3 118 Complement C4 18 - Imaging Impressions Abdomen/Bladder Ultrasound 02/17/18 00:00 CONCLUSION: 1. Nonobstructing left renal calculi are suspected. The study is otherwise unremarkable. Assessment and Plan - Plan 22-year-old man with Cocaine abuse EtOH abuse (prior ED visit for intoxication) Marijuana abuse tylenol/Lortab as needed for pain Thiamine/MVI/Folic acid. UDS positive for cocaine, cannabinoids and opiates Tobacco abuse NC wean as tolerated. Subacute Inferolateral STEMI vs Takotsubo cardiomyopathy Apical akinesis Severe cardiomyopathy ejection fraction 25% Continue aspirin 81 mg daily, Imdur 30 mg daily Cannot use beta-blockers due to cocaine use, cannot use KVNG inhibitors secondary to renal failure. s/p NTG and heparin drip. Appreciate input from cardiology, however consider left heart catheterization if creatinine improved to less than 2.0 No aortic dissection on AMAIRANI. Evaluated abdominal aorta as well, no e/o dissection. BK Acute rhabdomyolysis Continue IV hydration Appreciate input from nephrology Left calf swollen Check Doppler to rule out DVT HEME: Monitor CBC Followup BLE U/s. PROPH: SCD for DVT prophylaxis. Heparin sq as per above. Stress ulcer prophylaxis is not indicated.
--- NOTE | 2018-02-17 16:51 | ECG ---
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
[2018-02-18] MEDS: Sodium Bicarbonate 8.4% Inj 75 MEQ in Sodium Chloride 0.45 % Inj 925 ML IV.CONT SCH ×3 (02:09→16:10)
[2018-02-18] MEDS: Chlorhexidine Gluconate 2% 1 Pack (2 Cloths) TOPICAL SCH (03:46)
[2018-02-18 06:03] LABS: Baso # (Auto) 0.1 th/mm3 (0.0-0.2); Baso % (Auto) 0.8 % (0.0-2.0); Eos # (Auto) 0.5 th/mm3 (0.0-0.4); Eos % (Auto) 5.5 % (0.0-4.0); Hemoglobin 14.2 gm/dL (13.0-17.0); Lymph # (Auto) 1.7 th/mm3 (1.0-4.8); Lymph % (Auto) 18.4 % (9.0-44.0); Mean Corpuscular HGB Conc 35.6 % (32.0-36.0); Mean Corpuscular Hemoglobin 32.5 pg (27.0-34.0); Mean Corpuscular Volume 91.3 fL (80.0-100.0); Mean Platelet Volume 8.2 fL (7.0-11.0); Mono # (Auto) 0.6 th/mm3 (0.0-0.9); Mono % (Auto) 6.1 % (0.0-8.0); Neut # (Auto) 6.4 th/mm3 (1.8-7.7); Neut % (Auto) 69.2 % (16.0-70.0); Platelet Count 276 th/mm3 (150-450); Red Blood Count 4.38 mil/mm3 (4.50-5.90); Red Cell Distribution Width 12.7 % (11.6-17.2); White Blood Count 9.2 th/mm3 (4.0-11.0)
[2018-02-18 06:08] LABS: Prothrombin Time 10.2 sec (9.8-11.6)
[2018-02-18] MEDS: Isosorbide Mononitrate 30 MG ER 24HR Tablet (Imdur) PO SCH (06:13)
[2018-02-18 06:24] LABS: Alanine Aminotransferase 269 U/L (12-78); Albumin 2.6 g/dL (3.4-5.0); Anion Gap 11 meq/L (5-15); Aspartate Aminotransferase 478 U/L (15-37); Blood Urea Nitrogen 26 mg/dL (7-18); Calcium 8.7 mg/dL (8.5-10.1); Carbon Dioxide 30.4 meq/L (21.0-32.0); Chloride 101 meq/L (98-107); Glomerular Filtration Rate 40 mL/min (>89); Glucose,Random 80 mg/dL (74-106); Magnesium 1.7 mg/dL (1.5-2.5); Phosphorus 3.9 mg/dL (2.5-4.9); Potassium 3.6 meq/L (3.5-5.1); Sodium 142 meq/L (136-145)
[2018-02-18 06:37] LABS: Alkaline Phosphatase 48 U/L (45-117); Creatine Kinase 6797 U/L (39-308); Total Protein 6.2 g/dL (6.4-8.2)
[2018-02-18 06:53] LABS: CKMB Percent 0.2 % (0.0-4.0); Creatine Kinase MB 10.8 ng/mL (0.5-3.6)
[2018-02-18] MEDS: Senna/Docusate Sodium 8.6/50 MG Tablet PO SCH ×2 (09:23→21:39)
[2018-02-18] MEDS: Heparin - SQ 10,000 UNITS/ML Vial SQ SCH ×2 (09:23→21:38)
[2018-02-18] MEDS: Folic Acid 1 MG Tablet PO SCH (09:23)
--- NOTE | 2018-02-18 10:45 | P.PN ---
Subjective Interval history: Follow-up questionable ST elevation [place] versus Takotsubo cardiomyopathy / rhabdomyolysis/cardiomyopathy February 17, 2018-patient seen and examined, complaining of left flank pain. Reports some on and off chest pain. February 18, 2018-patient seen and examined, reports some on and off chest pain otherwise no other issues. CK and renal indices improving Physical Exam Vital signs: Vital Signs 02/17/18 11:00 02/17/18 11:25 02/17/18 12:00 Temperature 98.3 F Pulse Rate 64 79 60 Respiratory Rate 16 Blood Pressure 118/77 Pulse Oximetry 97 02/17/18 13:00 02/17/18 14:00 02/17/18 15:00 Temperature Pulse Rate 81 73 60 Respiratory Rate Blood Pressure Pulse Oximetry 02/17/18 15:09 02/17/18 16:00 02/17/18 17:00 Temperature 98.4 F Pulse Rate 75 71 68 Respiratory Rate 16 Blood Pressure 118/62 Pulse Oximetry 95 02/17/18 18:00 02/17/18 19:00 02/17/18 20:00 Temperature 98.2 F Pulse Rate 76 71 66 Respiratory Rate 18 Blood Pressure 128/91 H Pulse Oximetry 98 02/17/18 21:00 02/17/18 22:00 02/17/18 22:54 Temperature Pulse Rate 70 80 79 Respiratory Rate Blood Pressure Pulse Oximetry 02/17/18 23:00 02/18/18 00:00 02/18/18 01:00 Temperature 98 F Pulse Rate 76 75 85 Respiratory Rate 20 Blood Pressure 111/70 Pulse Oximetry 99 02/18/18 02:00 02/18/18 02:11 02/18/18 03:00 Temperature 98.2 F Pulse Rate 72 73 65 Respiratory Rate 16 18 Blood Pressure 117/75 Pulse Oximetry 95 02/18/18 04:00 02/18/18 05:00 02/18/18 06:00 Temperature Pulse Rate 68 71 70 Respiratory Rate Blood Pressure Pulse Oximetry 02/18/18 07:00 02/18/18 08:00 02/18/18 09:00 Temperature 98.7 F Pulse Rate 72 72 72 Respiratory Rate 18 Blood Pressure 129/83 Pulse Oximetry 98 02/18/18 10:00 Temperature Pulse Rate 67 Respiratory Rate Blood Pressure Pulse Oximetry Intake & Output 02/17/18 02/18/18 02/18/18 18:59 06:59 18:59 Intake Total 3760 / 3760 1720 / 1720 Output Total 2250 / 2250 1200 / 1200 Balance 1510 / 1510 520 / 520 Weight 81.5 kg Intake: IV 2800 / 2800 1000 / 1000 Sodium Bicarbonate 8.4% Inj 75 2800 / 2800 1000 / 1000 MEQ In 1/2 Normal Saline Inj 925 ML @ 100 mls/hr IV.CONT . Q10H [facility] Rx#:[id number] Oral 960 / 960 720 / 720 Output: Urine 2250 / 2250 1200 / 1200 Other: Date of Last Bowel Movement 02/14/18 02/17/18 Narrative: GENERAL: Well-nourished, Alert and oriented SKIN: Warm and dry. EYES: Pupils equal and round 3 meters and reactive bilaterally. CARDIOVASCULAR: Regular rate and rhythm. No murmurs rubs or gallops. Mild tenderness to palpation on the right sternal border RESPIRATORY: Breathing comfortably no accessory muscle use. Clear to auscultation. Breath sounds equal bilaterally. GASTROINTESTINAL: Abdomen soft, non-tender, nondistended. MUSCULOSKELETAL: Extremities without cyanosis. Results - Labs CBC & Chem 7: 02/18/18 04:50 02/18/18 04:50 Laboratory Results - last 24 hr 02/15/18 02/15/18 02/18/18 05:25 08:50 04:50 WBC RBC Hgb Hct MCV MCH MCHC RDW Plt Count MPV Neut % (Auto) Lymph % (Auto) [place] % (Auto) Eos % (Auto) Baso % (Auto) Neut # (Auto) Lymph # (Auto) [place] # (Auto) Eos # (Auto) Baso # (Auto) WBC Differential Differential Comment PT INR Thrombin Time Greater than 100 H Lupus Anticoagulant Lupus Anticoag aPTT 91.0 H Dil Ziggy Viper Venom 33.0 dRVVT Confirm Interp ND dRVVT Mix Pat/Norm 1:1 ND dRVVT Mix Interpret ND Hexagonal Phase Confirm Positive A Antithrombin III Activ 85 Sodium 142 Potassium 3.6 Chloride 101 Carbon Dioxide 30.4 Anion Gap 11 BUN 26 H Creatinine 2.07 H Estimated GFR 40 L Random Glucose 80 Calcium 8.7 Phosphorus 3.9 Magnesium 1.7 Total Bilirubin 0.5 AST 478 H ALT 269 H Alkaline Phosphatase 48 Total Creatine Kinase 6797 H CK-MB (CK-2) 10.8 H CK-MB (CK-2) % 0.2 Total Protein 6.2 L Albumin 2.6 L 02/18/18 02/18/18 04:50 04:50 WBC 9.2 RBC 4.38 L Hgb 14.2 Hct 40.0 MCV 91.3 MCH 32.5 MCHC 35.6 RDW 12.7 Plt Count 276 MPV 8.2 Neut % (Auto) 69.2 Lymph % (Auto) 18.4 [place] % (Auto) 6.1 Eos % (Auto) 5.5 H Baso % (Auto) 0.8 Neut # (Auto) 6.4 Lymph # (Auto) 1.7 [place] # (Auto) 0.6 Eos # (Auto) 0.5 H Baso # (Auto) 0.1 WBC Differential . Differential Comment Auto diff final PT 10.2 INR 1.0 Thrombin Time Lupus Anticoagulant Lupus Anticoag aPTT Dil Ziggy Viper Venom dRVVT Confirm Interp dRVVT Mix Pat/Norm 1:1 dRVVT Mix Interpret Hexagonal Phase Confirm Antithrombin III Activ Sodium Potassium Chloride Carbon Dioxide Anion Gap BUN Creatinine Estimated GFR Random Glucose Calcium Phosphorus Magnesium Total Bilirubin AST ALT Alkaline Phosphatase Total Creatine Kinase CK-MB (CK-2) CK-MB (CK-2) % Total Protein Albumin Assessment and Plan - Plan 22-year-old man with Cocaine abuse EtOH abuse (prior ED visit for intoxication) Marijuana abuse tylenol/Lortab as needed for pain Thiamine/MVI/Folic acid. UDS positive for cocaine, cannabinoids and opiates Tobacco abuse NC wean as tolerated. Subacute Inferolateral STEMI vs Takotsubo cardiomyopathy Apical akinesis Severe cardiomyopathy ejection fraction 25% Continue aspirin 81 mg daily, Imdur 30 mg daily Cannot use beta-blockers due to cocaine use, cannot use KVNG inhibitors secondary to renal failure. s/p NTG and heparin drip. Appreciate input from cardiology, however consider left heart catheterization if creatinine improved to less than 2.0 No aortic dissection on AMAIRANI. Evaluated abdominal aorta as well, no e/o dissection. BK Acute rhabdomyolysis Renal indices and CK improving, continue IV hydration Appreciate input from nephrology Left calf swollen Doppler to rule down DVT on February 16, 2018 HEME: Monitor CBC Followup BLE U/s. PROPH: SCD for DVT prophylaxis. Heparin sq as per above. Stress ulcer prophylaxis is not indicated.
--- NOTE | 2018-02-18 12:06 | P.PNNP ---
Subjective Interval history: Patient is sleeping, offers no complaints. Creatinine improving at 2.7 from 2.69. IVF are infusing. <Gloria Martinez - Last Filed: 02/18/18 12:02> Physical Exam Vital signs: Vital Signs 02/17/18 13:00 02/17/18 14:00 02/17/18 15:00 Temperature Pulse Rate 81 73 60 Respiratory Rate Blood Pressure Pulse Oximetry 02/17/18 15:09 02/17/18 16:00 02/17/18 17:00 Temperature 98.4 F Pulse Rate 75 71 68 Respiratory Rate 16 Blood Pressure 118/62 Pulse Oximetry 95 02/17/18 18:00 02/17/18 19:00 02/17/18 20:00 Temperature 98.2 F Pulse Rate 76 71 66 Respiratory Rate 18 Blood Pressure 128/91 H Pulse Oximetry 98 02/17/18 21:00 02/17/18 22:00 02/17/18 22:54 Temperature Pulse Rate 70 80 79 Respiratory Rate Blood Pressure Pulse Oximetry 02/17/18 23:00 02/18/18 00:00 02/18/18 01:00 Temperature 98 F Pulse Rate 76 75 85 Respiratory Rate 20 Blood Pressure 111/70 Pulse Oximetry 99 02/18/18 02:00 02/18/18 02:11 02/18/18 03:00 Temperature 98.2 F Pulse Rate 72 73 65 Respiratory Rate 16 18 Blood Pressure 117/75 Pulse Oximetry 95 02/18/18 04:00 02/18/18 05:00 02/18/18 06:00 Temperature Pulse Rate 68 71 70 Respiratory Rate Blood Pressure Pulse Oximetry 02/18/18 07:00 02/18/18 08:00 02/18/18 09:00 Temperature 98.7 F Pulse Rate 72 72 72 Respiratory Rate 18 Blood Pressure 129/83 Pulse Oximetry 98 02/18/18 10:00 02/18/18 11:00 Temperature 98.5 F Pulse Rate 67 67 Respiratory Rate 18 Blood Pressure 121/88 Pulse Oximetry 98 Intake & Output 02/17/18 02/18/18 02/18/18 18:59 06:59 18:59 Intake Total 3760 / 3760 1720 / 1720 Output Total 2250 / 2250 1200 / 1200 Balance 1510 / 1510 520 / 520 Weight 81.5 kg Intake: IV 2800 / 2800 1000 / 1000 Sodium Bicarbonate 8.4% Inj 75 2800 / 2800 1000 / 1000 MEQ In 1/2 Normal Saline Inj 925 ML @ 100 mls/hr IV.CONT . Q[facility]H [facility] Rx#:[id number] Oral 960 / 960 720 / 720 Output: Urine 2250 / 2250 1200 / 1200 Other: Date of Last Bowel Movement 02/14/18 02/17/18 Narrative: GENERAL: Well-nourished, Alert and oriented SKIN: Warm and dry. EYES: Pupils equal CARDIOVASCULAR: Regular rate and rhythm. No murmurs rubs or gallops. Mild tenderness to palpation on the right sternal border RESPIRATORY: Breathing comfortably no accessory muscle use. Clear to auscultation. Breath sounds equal bilaterally. GASTROINTESTINAL: Abdomen soft, non-tender, nondistended. MUSCULOSKELETAL: Extremities without cyanosis. <Gloria Martinez - Last Filed: 02/18/18 12:02> Vital signs: Vital Signs 02/18/18 19:00 02/18/18 20:00 02/18/18 21:00 Temperature 98.4 F Pulse Rate 75 78 69 Respiratory Rate 16 Blood Pressure 156/82 H Pulse Oximetry 99 02/18/18 22:00 02/18/18 23:00 02/19/18 00:00 Temperature 99.4 F Pulse Rate 71 75 72 Respiratory Rate 18 Blood Pressure 137/84 Pulse Oximetry 98 02/19/18 01:00 02/19/18 02:00 02/19/18 03:00 Temperature 98.7 F Pulse Rate 75 74 72 Respiratory Rate 16 Blood Pressure 130/76 Pulse Oximetry 97 02/19/18 04:00 02/19/18 05:00 02/19/18 06:00 Temperature Pulse Rate 75 85 74 Respiratory Rate Blood Pressure Pulse Oximetry 02/19/18 07:00 02/19/18 08:00 02/19/18 09:00 Temperature 98.0 F Pulse Rate 70 71 72 Respiratory Rate 18 Blood Pressure 139/83 Pulse Oximetry 100 02/19/18 10:00 02/19/18 11:00 02/19/18 12:00 Temperature 98.2 F Pulse Rate 72 66 66 Respiratory Rate 18 Blood Pressure 128/75 Pulse Oximetry 100 02/19/18 12:17 02/19/18 13:00 08/30/18 15:00 Temperature Pulse Rate 65 62 Respiratory Rate 18 Blood Pressure Pulse Oximetry 02/19/18 16:00 02/19/18 17:00 Temperature Pulse Rate 96 H 99 H Respiratory Rate Blood Pressure Pulse Oximetry Intake & Output 02/18/18 02/19/18 02/19/18 18:59 06:59 18:59 Intake Total 480 / 480 900 / 900 2480 / 2480 Output Total 800 / 800 2300 / 2300 2100 / 2100 Balance -320 / -320 -1400 / -1400 380 / 380 Weight 81 kg Intake: IV 900 / 900 1000 / 1000 Sodium Bicarbonate 8.4% Inj 75 900 / 900 1000 / 1000 MEQ In 1/2 Normal Saline Inj 925 ML @ 100 mls/hr IV.CONT . Q10H [facility] Rx#:[id number] Oral 480 / 480 480 / 480 Other 1000 / 1000 Output: Urine 800 / 800 2300 / 2300 2100 / 2100 Other: Other Intake Source Saline Solution Date of Last Bowel Movement 02/18/18 02/18/18 02/18/18 # Bowel Movements 2 <Esteban Sahu - Last Filed: 02/19/18 18:12> Assessment and Plan - Assessment (1) Acute renal insufficiency Code(s): N28.9 - Disorder of kidney and ureter, unspecified Status: Acute Plan: Acute kidney injury with a creatinine of 3.12 on day of consult. Creatinine noted on 10/05/17 of 1.0 Acute kidney injury possibly ATN related to rhabdomyolysis Creatinine 3.12 ->2.69 ->2.04 Complements normal, AGUEDA and ANCA pending. U/S - Right Kidney: Normal echotexture and cortical thickness. No mass or hydronephrosis. Left Kidney: Normal echotexture and cortical thickness. No mass or hydronephrosis. 6.7 mm nonobstructing upper pole calculus suspected. There may also be a 4.5 mm stone at the lower pole, nonobstructing. Plan Avoid nephrotoxins including IV contrast Will monitor urinary output, bmp, and CPK Will continue IVF with possible heart cath Fluids encouraged Per records for possible heart cath when creatinine is less than 2. labs in AM <Gloria Martinez - Last Filed: 02/18/18 12:02> - Assessment (1) Acute renal insufficiency Code(s): N28.9 - Disorder of kidney and ureter, unspecified Status: Acute - Attending Attestation Patient seen and examined; records reviewed; agree with the plan and recommendations of the PLANNING CONSULTANT <Esteban Sahu S - Last Filed: 02/19/18 18:12>
--- NOTE | 2018-02-18 21:39 | ECG ---
Date Performed: 02/17/2018 Time Performed: 16:35:36 PTAGE: 22 years EKG: CONSIDER ACUTE ST ELEVATION [place] Sinus rhythm . Prolonged QT interval Severe right axis deviation Possible extensive infarct - age undetermined Inf erior ST elevation, CONSIDER ACUTE INFARCT Abnormal ECG PREVIOUS TRACING : 02/16/2018 08.54 Since the previous tracing, no significant change noted DOCTOR: Eddie Botello Interpretating Date/Time 02/18/2018 21:37:43
[2018-02-18 21:52] LABS: Factor V Leiden Mutation Negative (Negative)
[2018-02-19] MEDS: Sodium Bicarbonate 8.4% Inj 75 MEQ in Sodium Chloride 0.45 % Inj 925 ML IV.CONT SCH ×4 (02:11→21:27)
[2018-02-19] MEDS: Chlorhexidine Gluconate 2% 1 Pack (2 Cloths) TOPICAL SCH (05:26)
[2018-02-19 06:27] LABS: Baso # (Auto) 0.1 th/mm3 (0.0-0.2); Baso % (Auto) 0.6 % (0.0-2.0); Eos # (Auto) 0.6 th/mm3 (0.0-0.4); Eos % (Auto) 5.2 % (0.0-4.0); Hematocrit 37.5 % (39.0-51.0); Hemoglobin 13.3 gm/dL (13.0-17.0); Lymph # (Auto) 1.6 th/mm3 (1.0-4.8); Lymph % (Auto) 15.1 % (9.0-44.0); Mean Corpuscular HGB Conc 35.5 % (32.0-36.0); Mean Corpuscular Hemoglobin 32.1 pg (27.0-34.0); Mean Corpuscular Volume 90.3 fL (80.0-100.0); Mean Platelet Volume 8.2 fL (7.0-11.0); Mono # (Auto) 0.9 th/mm3 (0.0-0.9); Mono % (Auto) 8.2 % (0.0-8.0); Neut # (Auto) 7.7 th/mm3 (1.8-7.7); Neut % (Auto) 70.9 % (16.0-70.0); Platelet Count 262 th/mm3 (150-450); Red Blood Count 4.15 mil/mm3 (4.50-5.90); Red Cell Distribution Width 12.1 % (11.6-17.2); White Blood Count 10.9 th/mm3 (4.0-11.0)
[2018-02-19 06:37] LABS: Prothrombin Time 10.5 sec (9.8-11.6)
[2018-02-19 06:54] LABS: Anion Gap 10 meq/L (5-15); Blood Urea Nitrogen 23 mg/dL (7-18); Calcium 9.1 mg/dL (8.5-10.1); Carbon Dioxide 28.8 meq/L (21.0-32.0); Chloride 102 meq/L (98-107); Glomerular Filtration Rate 48 mL/min (>89); Glucose,Random 85 mg/dL (74-106); Magnesium 1.6 mg/dL (1.5-2.5); Potassium 3.5 meq/L (3.5-5.1); Sodium 141 meq/L (136-145)
[2018-02-19 06:55] LABS: Alanine Aminotransferase 275 U/L (12-78)
[2018-02-19 07:49] LABS: Alkaline Phosphatase 54 U/L (45-117); Aspartate Aminotransferase 430 U/L (15-37); Creatine Kinase 5606 U/L (39-308); Phosphorus 3.5 mg/dL (2.5-4.9); Total Protein 6.9 g/dL (6.4-8.2)
[2018-02-19 08:18] LABS: CKMB Percent 0.2 % (0.0-4.0); Creatine Kinase MB 8.7 ng/mL (0.5-3.6)
[2018-02-19] MEDS: Isosorbide Mononitrate 30 MG ER 24HR Tablet (Imdur) PO SCH (09:06)
[2018-02-19] MEDS: Folic Acid 1 MG Tablet PO SCH (09:07)
[2018-02-19] MEDS: Heparin - SQ 10,000 UNITS/ML Vial SQ SCH ×2 (09:07→21:27)
[2018-02-19] MEDS: Senna/Docusate Sodium 8.6/50 MG Tablet PO SCH ×2 (09:07→21:29)
--- NOTE | 2018-02-19 10:16 | P.PN ---
Subjective Interval history: Follow-up questionable ST elevation [place] versus Takotsubo cardiomyopathy / rhabdomyolysis/cardiomyopathy February 17, 2018-patient seen and examined, complaining of left flank pain. Reports some on and off chest pain. February 18, 2018-patient seen and examined, reports some on and off chest pain otherwise no other issues. CK and renal indices improving February 19, 2018-patient seen and examined, still with some mild chest pain. Creatinine down to 1.74. Plan for heart catheterization today. Physical Exam Vital signs: Vital Signs 02/18/18 11:00 02/18/18 12:00 02/18/18 13:00 Temperature 98.5 F Pulse Rate 69 72 89 Respiratory Rate 18 Blood Pressure 121/88 Pulse Oximetry 98 02/18/18 14:00 02/18/18 15:00 02/18/18 16:00 Temperature 98.5 F Pulse Rate 78 71 69 Respiratory Rate 18 Blood Pressure 121/88 Pulse Oximetry 99 02/18/18 17:00 02/18/18 18:00 02/18/18 19:00 Temperature 98.4 F Pulse Rate 70 74 75 Respiratory Rate 16 Blood Pressure 156/82 H Pulse Oximetry 99 02/18/18 20:00 02/18/18 21:00 02/18/18 22:00 Temperature Pulse Rate 78 69 71 Respiratory Rate Blood Pressure Pulse Oximetry 02/18/18 23:00 02/19/18 00:00 02/19/18 01:00 Temperature 99.4 F Pulse Rate 75 72 75 Respiratory Rate 18 Blood Pressure 137/84 Pulse Oximetry 98 02/19/18 02:00 02/19/18 03:00 02/19/18 04:00 Temperature 98.7 F Pulse Rate 74 72 75 Respiratory Rate 16 Blood Pressure 130/76 Pulse Oximetry 97 02/19/18 05:00 02/19/18 06:00 02/19/18 07:00 Temperature 98.0 F Pulse Rate 85 74 70 Respiratory Rate 18 Blood Pressure 139/83 Pulse Oximetry 100 02/19/18 08:00 02/19/18 09:00 02/19/18 10:00 Temperature Pulse Rate 71 72 72 Respiratory Rate Blood Pressure Pulse Oximetry Intake & Output 02/18/18 02/19/18 02/19/18 18:59 06:59 18:59 Intake Total 480 / 480 900 / 900 Output Total 800 / 800 2300 / 2300 Balance -320 / -320 -1400 / -1400 Weight 81 kg Intake: IV 900 / 900 Sodium Bicarbonate 8.4% Inj 75 900 / 900 MEQ In 1/2 Normal Saline Inj 925 ML @ 100 mls/hr IV.CONT . Q10H [facility] Rx#:[id number] Oral 480 / 480 Output: Urine 800 / 800 2300 / 2300 Other: Date of Last Bowel Movement 02/18/18 02/18/18 02/18/18 # Bowel Movements 2 Narrative: GENERAL: NAD SKIN: Warm and dry. EYES: Pupils equal CARDIOVASCULAR: Regular rate and rhythm. No murmurs rubs or gallops. Mild tenderness to palpation on the right sternal border RESPIRATORY: Breathing comfortably no accessory muscle use. Clear to auscultation. Breath sounds equal bilaterally. GASTROINTESTINAL: Abdomen soft, non-tender, nondistended. MUSCULOSKELETAL: Extremities without cyanosis. Results - Labs CBC & Chem 7: 02/19/18 05:57 02/19/18 05:57 Laboratory Results - last 24 hr 02/15/18 02/15/18 02/15/18 05:10 05:10 05:25 WBC RBC Hgb Hct MCV MCH MCHC RDW Plt Count MPV Neut % (Auto) Lymph % (Auto) Marion % (Auto) Eos % (Auto) Baso % (Auto) Neut # (Auto) Lymph # (Auto) Marion # (Auto) Eos # (Auto) Baso # (Auto) WBC Differential Differential Comment PT INR Factor V Leiden Mutat Negative Factor V Leiden Interp . Fact V Leiden Review By See below Sodium Potassium Chloride Carbon Dioxide Anion Gap BUN Creatinine Estimated GFR Random Glucose Calcium Phosphorus Magnesium Total Bilirubin AST ALT Alkaline Phosphatase Total Creatine Kinase CK-MB (CK-2) CK-MB (CK-2) % Total Protein Albumin Homocysteine Cardiovas 21.8 H AGUEDA Screen Beta-2-GPI IgG Ab Less than 9.0 Beta-2-GPI IgA Ab Less than 9.0 Beta-2-GPI IgM Ab Less than 9.0 Anti-Cardiolipin IgG Ab Less than 14.0 Anti-Cardiolipin IgA Ab Less than 11.0 Anti-Cardiolipin IgM Ab Less than 12.0 02/17/18 02/19/18 02/19/18 04:13 05:57 05:57 WBC 10.9 RBC 4.15 L Hgb 13.3 Hct 37.5 L MCV 90.3 MCH 32.1 MCHC 35.5 RDW 12.1 Plt Count 262 MPV 8.2 Neut % (Auto) 70.9 H Lymph % (Auto) 15.1 Marion % (Auto) 8.2 H Eos % (Auto) 5.2 H Baso % (Auto) 0.6 Neut # (Auto) 7.7 Lymph # (Auto) 1.6 Marion # (Auto) 0.9 Eos # (Auto) 0.6 H Baso # (Auto) 0.1 WBC Differential . Differential Comment Auto diff final PT INR Factor V Leiden Mutat Factor V Leiden Interp Fact V Leiden Review By Sodium 141 Potassium 3.5 Chloride 102 Carbon Dioxide 28.8 Anion Gap 10 BUN 23 H Creatinine 1.74 H Estimated GFR 48 L Random Glucose 85 Calcium 9.1 Phosphorus 3.5 Magnesium 1.6 Total Bilirubin 0.6 AST 430 H ALT 275 H Alkaline Phosphatase 54 Total Creatine Kinase 5606 H CK-MB (CK-2) 8.7 H CK-MB (CK-2) % 0.2 Total Protein 6.9 D Albumin 3.0 L Homocysteine Cardiovas AGUEDA Screen Neg Beta-2-GPI IgG Ab Beta-2-GPI IgA Ab Beta-2-GPI IgM Ab Anti-Cardiolipin IgG Ab Anti-Cardiolipin IgA Ab Anti-Cardiolipin IgM Ab 02/19/18 05:57 WBC RBC Hgb Hct MCV MCH MCHC RDW Plt Count MPV Neut % (Auto) Lymph % (Auto) Marion % (Auto) Eos % (Auto) Baso % (Auto) Neut # (Auto) Lymph # (Auto) Marion # (Auto) Eos # (Auto) Baso # (Auto) WBC Differential Differential Comment PT 10.5 INR 1.0 Factor V Leiden Mutat Factor V Leiden Interp Fact V Leiden Review By Sodium Potassium Chloride Carbon Dioxide Anion Gap BUN Creatinine Estimated GFR Random Glucose Calcium Phosphorus Magnesium Total Bilirubin AST ALT Alkaline Phosphatase Total Creatine Kinase CK-MB (CK-2) CK-MB (CK-2) % Total Protein Albumin Homocysteine Cardiovas AGUEDA Screen Beta-2-GPI IgG Ab Beta-2-GPI IgA Ab Beta-2-GPI IgM Ab Anti-Cardiolipin IgG Ab Anti-Cardiolipin IgA Ab Anti-Cardiolipin IgM Ab Assessment and Plan - Plan 22-year-old man with Cocaine abuse EtOH abuse (prior ED visit for intoxication) Marijuana abuse tylenol/Lortab as needed for pain Thiamine/MVI/Folic acid. UDS positive for cocaine, cannabinoids and opiates Tobacco abuse NC wean as tolerated. Subacute Inferolateral STEMI vs Takotsubo cardiomyopathy Apical akinesis Severe cardiomyopathy ejection fraction 25% Continue aspirin 81 mg daily, Imdur 30 mg daily Cannot use beta-blockers due to cocaine use, cannot use KVNG inhibitors secondary to renal failure. s/p NTG and heparin drip. Appreciate input from cardiology. Plan for heart catheterization today February 19, 2018 as creatinine down to 1.74 No aortic dissection on AMAIRANI. Evaluated abdominal aorta as well, no e/o dissection. BK Acute rhabdomyolysis Renal indices and CK improving, continue IV hydration. Creatinine down to 1.74 today Appreciate input from nephrology Left calf swollen Doppler to rule down DVT on February 16, 2018 HEME: Monitor CBC Followup BLE U/s. PROPH: SCD for DVT prophylaxis. Heparin sq as per above. Stress ulcer prophylaxis is not indicated.
--- NOTE | 2018-02-19 10:36 | P.PNNP ---
Subjective Interval history: No acute events overnight. Creatinine continues to improve. Heart cath planned for today. <Gloria Martinez - Last Filed: 02/19/18 10:31> Physical Exam Vital signs: Vital Signs 02/18/18 11:00 02/18/18 12:00 02/18/18 13:00 Temperature 98.5 F Pulse Rate 69 72 89 Respiratory Rate 18 Blood Pressure 121/88 Pulse Oximetry 98 02/18/18 14:00 02/18/18 15:00 02/18/18 16:00 Temperature 98.5 F Pulse Rate 78 71 69 Respiratory Rate 18 Blood Pressure 121/88 Pulse Oximetry 99 02/18/18 17:00 02/18/18 18:00 02/18/18 19:00 Temperature 98.4 F Pulse Rate 70 74 75 Respiratory Rate 16 Blood Pressure 156/82 H Pulse Oximetry 99 02/18/18 20:00 02/18/18 21:00 02/18/18 22:00 Temperature Pulse Rate 78 69 71 Respiratory Rate Blood Pressure Pulse Oximetry 02/18/18 23:00 02/19/18 00:00 02/19/18 01:00 Temperature 99.4 F Pulse Rate 75 72 75 Respiratory Rate 18 Blood Pressure 137/84 Pulse Oximetry 98 02/19/18 02:00 02/19/18 03:00 02/19/18 04:00 Temperature 98.7 F Pulse Rate 74 72 75 Respiratory Rate 16 Blood Pressure 130/76 Pulse Oximetry 97 02/19/18 05:00 02/19/18 06:00 02/19/18 07:00 Temperature 98.0 F Pulse Rate 85 74 70 Respiratory Rate 18 Blood Pressure 139/83 Pulse Oximetry 100 02/19/18 08:00 02/19/18 09:00 02/19/18 10:00 Temperature Pulse Rate 71 72 72 Respiratory Rate Blood Pressure Pulse Oximetry Intake & Output 02/18/18 02/19/18 02/19/18 18:59 06:59 18:59 Intake Total 480 / 480 900 / 900 Output Total 800 / 800 2300 / 2300 Balance -320 / -320 -1400 / -1400 Weight 81 kg Intake: IV 900 / 900 Sodium Bicarbonate 8.4% Inj 75 900 / 900 MEQ In 1/2 Normal Saline Inj 925 ML @ 100 mls/hr IV.CONT . Q10H [facility] Rx#:[id number] Oral 480 / 480 Output: Urine 800 / 800 2300 / 2300 Other: Date of Last Bowel Movement 02/18/18 02/18/18 02/18/18 # Bowel Movements 2 Narrative: GENERAL: NAD. Alert and oriented SKIN: Warm and dry. EYES: Pupils equal CARDIOVASCULAR: Regular rate and rhythm. No murmurs rubs or gallops. RESPIRATORY: Clear to auscultation. Breath sounds equal bilaterally. GASTROINTESTINAL: Abdomen soft, non-tender, nondistended. MUSCULOSKELETAL: Extremities without cyanosis. <Gloria Martinez - Last Filed: 02/19/18 10:31> Vital signs: Vital Signs 02/18/18 19:00 02/18/18 20:00 02/18/18 21:00 Temperature 98.4 F Pulse Rate 75 78 69 Respiratory Rate 16 Blood Pressure 156/82 H Pulse Oximetry 99 02/18/18 22:00 02/18/18 23:00 02/19/18 00:00 Temperature 99.4 F Pulse Rate 71 75 72 Respiratory Rate 18 Blood Pressure 137/84 Pulse Oximetry 98 02/19/18 01:00 02/19/18 02:00 02/19/18 03:00 Temperature 98.7 F Pulse Rate 75 74 72 Respiratory Rate 16 Blood Pressure 130/76 Pulse Oximetry 97 02/19/18 04:00 02/19/18 05:00 02/19/18 06:00 Temperature Pulse Rate 75 85 74 Respiratory Rate Blood Pressure Pulse Oximetry 02/19/18 07:00 02/19/18 08:00 02/19/18 09:00 Temperature 98.0 F Pulse Rate 70 71 72 Respiratory Rate 18 Blood Pressure 139/83 Pulse Oximetry 100 02/19/18 10:00 02/19/18 11:00 02/19/18 12:00 Temperature 98.2 F Pulse Rate 72 66 66 Respiratory Rate 18 Blood Pressure 128/75 Pulse Oximetry 100 02/19/18 12:17 02/19/18 13:00 02/19/18 15:00 Temperature Pulse Rate 65 62 Respiratory Rate 18 Blood Pressure Pulse Oximetry 02/19/18 16:00 02/19/18 17:00 02/19/18 18:00 Temperature Pulse Rate 96 H 99 H 81 Respiratory Rate Blood Pressure Pulse Oximetry Intake & Output 02/18/18 02/19/18 02/19/18 18:59 06:59 18:59 Intake Total 480 / 480 900 / 900 2480 / 2480 Output Total 800 / 800 2300 / 2300 2100 / 2100 Balance -320 / -320 -1400 / -1400 380 / 380 Weight 81 kg Intake: IV 900 / 900 1000 / 1000 Sodium Bicarbonate 8.4% Inj 75 900 / 900 1000 / 1000 MEQ In 1/2 Normal Saline Inj 925 ML @ 100 mls/hr IV.CONT . Q10H [facility] Rx#:[id number] Oral 480 / 480 480 / 480 Other 1000 / 1000 Output: Urine 800 / 800 2300 / 2300 2100 / 2100 Other: Other Intake Source Saline Solution Date of Last Bowel Movement 02/18/18 02/18/18 02/18/18 # Bowel Movements 2 <Esteban Sahu - Last Filed: 02/19/18 18:19> Assessment and Plan - Assessment (1) Acute renal insufficiency Code(s): N28.9 - Disorder of kidney and ureter, unspecified Status: Acute Plan: Acute kidney injury with a creatinine of 3.12 on day of consult. Creatinine noted on 10/05/17 of 1.0 Acute kidney injury possibly ATN related to rhabdomyolysis Creatinine 3.12 ->2.69 ->2.04 ->1.74 Complements normal, AGUEDA normal U/S - Right Kidney: Normal echotexture and cortical thickness. No mass or hydronephrosis. Left Kidney: Normal echotexture and cortical thickness. No mass or hydronephrosis. 6.7 mm nonobstructing upper pole calculus suspected. There may also be a 4.5 mm stone at the lower pole, nonobstructing. Plan Heart cath planned for today Continue IVF with pending heart cath and for minimum of 12 hours after heart cath Continue to monitor urinary output and bmp. labs in AM <Gloria Martinez - Last Filed: 02/19/18 10:31> - Assessment (1) Acute renal insufficiency Code(s): N28.9 - Disorder of kidney and ureter, unspecified Status: Acute - Attending Attestation Patient seen and examined; records reviewed; agree with the plan and recommendations of the CIRCUIT COURT CLERK <Esteban Sahu - Last Filed: 02/19/18 18:19>
[2018-02-19] MEDS ORDERED: Morphine Sulfate Inj 2 MG/ML Vial IV.PUSH ONE (12:00)
[2018-02-19] MEDS ORDERED: Heparin/NS PF Inj 1,000 ML ONE (13:53)
[2018-02-19] MEDS ORDERED: Heparin 10,000 UNITS/10 ML Vial (for IV use) ONE (13:54)
[2018-02-19] MEDS ORDERED: fentaNYL Citrate Inj 100 MCG/2 ML Ampul ONE (13:54)
--- NOTE | 2018-02-19 14:46 | P.PNCA ---
Subjective Interval history: CP continues to subside. No dyspnea, dizziness. Complains of headache from Imdur. Physical Exam Vital signs: Vital Signs 02/18/18 15:00 02/18/18 16:00 02/18/18 17:00 Temperature 98.5 F Pulse Rate 71 69 70 Respiratory Rate 18 Blood Pressure 121/88 Pulse Oximetry 99 02/18/18 18:00 02/18/18 19:00 02/18/18 20:00 Temperature 98.4 F Pulse Rate 74 75 78 Respiratory Rate 16 Blood Pressure 156/82 H Pulse Oximetry 99 02/18/18 21:00 02/18/18 22:00 02/18/18 23:00 Temperature 99.4 F Pulse Rate 69 71 75 Respiratory Rate 18 Blood Pressure 137/84 Pulse Oximetry 98 02/19/18 00:00 02/19/18 01:00 02/19/18 02:00 Temperature Pulse Rate 72 75 74 Respiratory Rate Blood Pressure Pulse Oximetry 02/19/18 03:00 02/19/18 04:00 02/19/18 05:00 Temperature 98.7 F Pulse Rate 72 75 85 Respiratory Rate 16 Blood Pressure 130/76 Pulse Oximetry 97 02/19/18 06:00 02/19/18 07:00 02/19/18 08:00 Temperature 98.0 F Pulse Rate 74 70 71 Respiratory Rate 18 Blood Pressure 139/83 Pulse Oximetry 100 02/19/18 09:00 02/19/18 10:00 02/19/18 11:00 Temperature 98.2 F Pulse Rate 72 72 66 Respiratory Rate 18 Blood Pressure 128/75 Pulse Oximetry 100 02/19/18 12:00 02/19/18 12:17 02/19/18 13:00 Temperature Pulse Rate 66 65 Respiratory Rate 18 Blood Pressure Pulse Oximetry Intake & Output 02/18/18 02/19/18 02/19/18 18:59 06:59 18:59 Intake Total 480 / 480 900 / 900 1000 / 1000 Output Total 800 / 800 2300 / 2300 Balance -320 / -320 -1400 / -1400 1000 / 1000 Weight 81 kg Intake: IV 900 / 900 1000 / 1000 Sodium Bicarbonate 8.4% Inj 75 900 / 900 1000 / 1000 MEQ In 1/2 Normal Saline Inj 925 ML @ 100 mls/hr IV.CONT . Q10H [facility] Rx#:[id number] Oral 480 / 480 Output: Urine 800 / 800 2300 / 2300 Other: Date of Last Bowel Movement 02/18/18 02/18/18 02/18/18 # Bowel Movements 2 - Constitutional no acute distress - Routine Neck Exam Absent: JVD - Routine Respiratory Exam Present: CTA bilaterally - Routine Cardiovascular Exam Present: RRR, S1, S2. Absent: murmur, gallop - Routine Abdominal Exam Present: soft, normoactive bowel sounds. Absent: tenderness, organomegaly - Routine Extremities Exam Absent: cyanosis, clubbing, edema Assessment and Plan - Assessment (1) ST elevation (STEMI) myocardial infarction Code(s): I21.3 - ST elevation (STEMI) myocardial infarction of unspecified site Status: Acute Plan: Stable overnight. Cath today shows total occlusion of the very distal LAD where the vessel is small and supplies only a small amount of myocardium. REC medical therapy, start carvedilol (advised patient of potential severe interaction if he were to use cocaine), no KVNG-I with his renal insufficiency, stop Imdur, continue aspirin, OK for discharge from a cardiac standpoint tomorrow. (2) Cardiomyopathy Code(s): I42.9 - Cardiomyopathy, unspecified Status: Acute Plan: EF about 25% by echo. Overall compensated. No CHF by current exam. To start beta francois as above, no KVNG-I or ARB with renal insufficiency. - Plan Code Status: full code Discussed Condition With: patient (1) ST elevation (STEMI) myocardial infarction Qualifiers: Involved coronary artery: LAD coronary artery Qualified Code(s): I21.02 - ST elevation (STEMI) myocardial infarction involving left anterior descending coronary artery (2) Cardiomyopathy Qualifiers: Cardiomyopathy type: ischemic Qualified Code(s): I25.5 - Ischemic cardiomyopathy
--- NOTE | 2018-02-19 14:47 | CATHPROC ---
[facility] HIS Report Study Information Study Number Admission Scheduled Start Study Start [id number] Feb 15 2018 4:55AM 02/19/2018 Feb 19 2018 1:44PM [place] Service Cardiac Catheterization Admit Source Facility Department Other [facility] - Pilling Machine Operator Physician and Clinical Staff Initial Wesley Balderas Business Management Consultant Jannet Rae,RN Recorder Maite Page,MELISSA Scrub Amairani Loza,RT(R) Procedures Performed Procedure Location (Site) Vessel Name Coronary Angiograms LCA Left Coronary Coronary Angiograms RCA Right Coronary L Heart Cath Wire insertion Radial (right) Radial Art. Equipment Time Customer Experience Analyst Description Size Mfg Part Number Used/Scraped TRANSDUCER, TRUWAVE [id number] 13:58 GOMEZ DEL ROSARIO * Used W/STOCKCOCK *[id number] 14:38 CARDIVA MEDICAL VASCADE, FR6 CLOSURE SYSTEM FR 6\7 Used *[id number] [id number] *[id number] 534-618T *[id number] 534-620T *[id number] 534-650S *[id number] 13:58 MALLINCKRODT SYRINGE, ANGIOMAT 150ML 150ML *[id number] Used 2SUB [employer] CONCEPT DRAPE, RADIAL FEMORAL FULL 13:58 * [id number] *[id number] Used DEVELOPMENT BODY [id number] 13:58 Mobile Accord BLANKET,WARM AIR CCL * Used *[id number] 13:58 Mobile Accord PACK, CCL CUSTOM * Used *[id number] 13:58 Mobile Accord SUPPORT, ARTERIAL ADULT [id number] *[id number] Used [id number] 13:58 BevyUp PACER PEN, SKIN DUAL W/ RULER * Used *[id number] BAND, RADIAL COMPRESSION TR [id number] 14:34 LIQVID 24CM Used SHORT 24 *[id number] SHEATH, FR6 RADIAL PRELUDE 13:58 LIQVID FR 6 [id number] Used EASE 11CM [id number] 13:58 LIQVID WIRE, EXCHANGE 260CM 3MMJ 260CM Used *[id number] 13:58 NAMIC MANIFOLD, 4 PORT * Used *[id number] 13:58 NYCOMED OMNIPAQUE, 350 MG, 150ML 150ML [id number] Used CATHETER, FR5 OPTITORQUE [id number] 14:18 TERUMO MEDICAL FR 5 Used JEYSON RADIAL *[id number] CATHETER, FR5 OPTITORQUE [id number] 14:04 TERUMO MEDICAL FR 5 Used RADIAL TIG 4.0 *[id number] 14:27 TERUMO MEDICAL SHEATH, FR6 TERUMO (10CM) FR 6 Used *[id number] History: Allergies Allergy Reaction No Known Allergies History: Risk Factors Family History of Hypertension Dyslipidemia Previous SD Previous Heart Failure Premature CAD No No No No No Prior Valve Prior PCI Prior CABG Surgery No No No Cerebrovascular Peripheral Artery Chronic Lung On Dialysis Diabetes Disease Disease Disease No No No No No History: Stress Tests Stress or Imaging Studies Performed No History: Other Current Smoker Method Packs a Day Years Used Pack Years Yes Cigarettes 1 4 4 Labs Hgb (g/dl) Hct (%) WBC (l/cumm) Platelets (thousands) 11.60-17.00 35.00-51.00 4.00-11.00 150.00-450.00 13.0 37 4.1 262 Glucose (mg/dl) BUN (mg/dl) Creatinine (mg/dl) BUN:Creatinine (1:x) 74.00-106.00 7.00-18.00 0.50-1.30 10.00-20.00 85 23 1.7 13.5 Na (meq/l) K (meq/l) 136.00-145.00 3.50-5.10 141 3.5 INR (PTT:PT) 0.90-1.10 1 Troponin I (ng/ml) CPK-MB (ng/ML) 0.02-0.05 0.50-3.60 24 18.2 Medication Medication Total Dose (Bolus/Oral) Medication Total Dosage/Unit 1% XYLOCAINE 40 mL FENTANYL 100 mcg NTG (IC) 100 mcg RADIAL COCKTAIL 5 mL (Bolus) VERSED 6 mg Medications (Bolus/Oral) Medication Time Given Dosage/Unit Administered By Reason VERSED 02/19/2018 2:00:40 PM 2 mg Jannet Rae 2 mg VERSED given in lab by Jannet Rae, RN via Peripheral IV. FENTANYL 02/19/2018 2:01:58 PM 50 mcg Jannet Rae 50 mcg FENTANYL given in lab by Jannet Rae, FEROZ via Peripheral IV. 1% XYLOCAINE 02/19/2018 2:04:14 PM 20 mL Sonido Vangnn 20 mL 1% XYLOCAINE given in lab by Wesley Vang via Subcutaneous. Ntg 200mcg Verapamil 2.5mg Heparin RADIAL COCKTAIL 02/19/2018 2:06:48 PM 5 mL (Bolus) Sonido Vangnn 2500U 5 mL (Bolus) RADIAL COCKTAIL given in lab by Wesley Vang via Radial. Using [Solution Name]. Reason: Ntg 200mcg Verapamil 2.5mg Heparin 2500U. VERSED 02/19/2018 2:14:44 PM 2 mg Jannet Rae 2 mg VERSED given in lab by Jannet Rae, FEROZ via Peripheral IV. NTG (IC) 02/19/2018 2:19:45 PM 100 mcg Wesley Vang 100 mcg NTG (IC) given in lab by Wesley Vang via Intra-coronary. VERSED 02/19/2018 2:27:19 PM 2 mg Jannet Rae 2 mg VERSED given in lab by Jannet Rae, FEROZ via Peripheral IV. 1% XYLOCAINE 02/19/2018 2:28:03 PM 20 mL Wesley Vang 20 mL 1% XYLOCAINE given in lab by Wesley Vang in Right Groin via Subcutaneous. FENTANYL 02/19/2018 2:28:41 PM 50 mcg Jannet Rae 50 mcg FENTANYL given in lab by Jannet Rae, FEROZ via Peripheral IV. Medication (Drip) Medication Time Given Dosage/Unit Concentration/Unit Diluent (ml) Solution IV Solutions 02/19/2018 1:48:16 PM 50 mL (IV) 500 NaCl .9 Patient arrived on IV Solutions via Peripheral IV. Pump/Drip Flow using NaCl .9. SODIUM BICARBONATE 02/19/2018 1:52:47 PM 75 meq Patient arrived on 75 meq SODIUM BICARBONATE via Peripheral IV. Initial Case Assessment Initial Case Assessment Cardiovascular HR NIBP Chest Pain 67 124/80 0 Edema Present Skin color Skin None Normal Warm Dry Circulatory - Right Pulses Dorsalis Pedis Femoral Radial 3 3 3 Scale (0,1,2,3,4,d) Circulatory - Left Pulses Dorsalis Pedis Femoral Radial 3 3 3 Scale (0,1,2,3,4,d) Neurological State Oriented to time-place- Alert Moves all extremities person Respiration - General Respiration Rate SpO2 (%) (B/min) 20 99 Initial Case Assessment Cardiovascular HR NIBP Chest Pain 74 128/83 0 Edema Present Skin color Skin None Normal Warm Dry Circulatory - Right Pulses Dorsalis Pedis Femoral Radial 3 3 3 Scale (0,1,2,3,4,d) Circulatory - Left Pulses Dorsalis Pedis Femoral Radial 3 3 3 Scale (0,1,2,3,4,d) Neurological State Oriented to time-place- Alert Moves all extremities person Respiration - General Respiration Rate SpO2 (%) (B/min) 20 99 Chronological Log Time Study Chronological Log 13:38:29 Patient arrived via Bed. 13:44:48 Patient Name, D.O.B, / Armband Verified By R.N. 13:44:49 Consent signed by the physician and the patient and verified by the Pilling Machine Operator staff. 13:44:51 Verbal Stimulation=2 Physical Stimulation=2 Airway=2 Respiration=2 TOTAL=8. (0=absent, 1=li mited, 2=present) 13:46:16 Allens test performed on the left radial and ulnar artery. 13:46:24 Patient has been NPO for More than 6Hrs. 13:46:25 Skin Breakdown- none 13:46:37 Patient Warmer Placed on the Table. 13:46:43 A # 20 IV was noted in the Forearm (right). Grade = 0 13:48:16 Patient arrived on IV Solutions via Peripheral IV. Pump/Drip Flow using NaCl .9. 13:48:55 History and physical on the chart or being dictated. 13:48:56 Assessment: Initial Case Vitals capture started with the following parameters, Patient=Adult, Interval=5 min, Initial Pr jlxfbg=828 mmHg, 13:49:17 Deflation Rate=5 mmHg, Cuff placed on Left Arm 13:49:47 JY=987 bpm, KCEF=692/79 mmhg, Resp=20 B/min, Pain=0, Lois=10, Mohan=2 13:51:41 Reference ECG taken 13:52:47 Patient arrived on 75 meq SODIUM BICARBONATE via Peripheral IV. 13:54:46 HR=68 bpm, HEXG=276/86 mmhg, Resp=0 B/min, Pain=0, Lois=10, Mohan=2 13:57:42 MD arrived. Assessment: Initial Case, HR=67 BPM, DLIR=323/80 mmhg, Chest Pain=0, Edema=None, Color=Normal, Skin = Warm, Dry Right Pulses: Kasi Ped=3, Femoral=3, Radial=3 13:59:33 Left Pulses: Kasi Ped=3, Femoral=3, Radial=3 Neurological: State=Alert, Ox3, MATHIS Respiration: Resp=20 B/min, SpO2=99 % 13:59:48 HR=71 bpm, HXWY=477/80 mmhg, Resp=17 B/min, Pain=0, Lois=10, Mohan=2 14:00:00 Right Radial and groin(s) prepped with 2% chlorhexidine, and draped after a 3 min. waiting time. 14:00:40 2 mg VERSED given in lab by Jannet Rae, FEROZ via Peripheral IV. 14:01:58 50 mcg FENTANYL given in lab by Jannet Rae, FEROZ via Peripheral IV. Time Out. Correct patient, correct procedure, correct physician, labs, allergies, and equipment verified with cath lab tech 14:03:45 team present. Fire risk assesment completed (see hard stop sheet for coding). Time Out Conc urred by MD and individual staff in procedure. 14:04:03 Pressure channel 1 zeroed. 14:04:10 Case Start 14:04:14 20 mL 1% XYLOCAINE given in lab by Welsey Vang via Subcutaneous. 14:04:53 HR=74 bpm, KAVR=884/75 mmhg, SpO2=96.0 %, Resp=16 B/min, Pain=0, Lois=10, Mohan=2 14:05:47 Access site was Right Radial Artery . A SHEATH, FR6 RADIAL PRELUDE EASE 11CM FR 6 was advanced into the Radial (right) using the Perc utaneous 14:06:04 technique. 5 mL (Bolus) RADIAL COCKTAIL given in lab by Wesley Vang via Radial. Using [Solution Name]. Re ason: Ntg 200mcg 14:06:48 Verapamil 2.5mg Heparin 2500U. 14:07:36 A WIRE, EXCHANGE 260CM 3MMJ 260CM was inserted via Radial (right). A CATHETER, FR5 OPTITORQUE RADIAL TIG 4.0 FR 5 was advanced over a wire. OMNIPAQUE, 350 MG, 150 ML 150ML 14:07:47 was used for injections. 14:09:52 HR=79 bpm, TFEF=575/77 mmhg, SpO2=96.0 %, Resp=10 B/min, Pain=0, Lois=10, Mohan=2 14:10:07 The RCA was injected and visualized at various angles. OMNIPAQUE, 350 MG, 150ML 150ML used . After removing the current catheter a JL 3.5 INFINITI CATHETER FR 6 was advanced over a WIRE, E XCHANGE 260CM 14:11:22 3MMJ 260CM. After removing the current catheter a AL 1 INFINITI CATHETER FR 6 was advanced over a WIRE, EXC HANGE 260CM 14:13:17 3MMJ 260CM. 14:14:44 2 mg VERSED given in lab by Jannet Rae, FEROZ via Peripheral IV. 14:14:49 HR=66 bpm, HWQO=655/81 mmhg, SpO2=99.0 %, Resp=10 B/min, Pain=0, Lois=10, Mohan=2 Recorded Pressure: Ao, HR=76, Condition=Condition 1 14:17:23 (Aorta) Ao 111/70/92 After removing the current catheter a CATHETER, FR5 OPTITORQUE JEYSON RADIAL FR 5 was advanced o kirt a WIRE, 14:18:58 EXCHANGE 260CM 3MMJ 260CM. 14:19:45 100 mcg NTG (IC) given in lab by Wesley Vang via Intra-coronary. 14:19:48 HR=74 bpm, PDHZ=472/81 mmhg, SpO2=96.0 %, Resp=17 B/min, Pain=0, Lois=10, Mohan=2 After removing the current catheter a JL 4.0 INFINITI CATHETER FR 6 was advanced over a WIRE, E XCHANGE 260CM 14:23:09 3MMJ 260CM. 14:24:53 HR=73 bpm, ENMP=138/69 mmhg, SpO2=98.0 %, Resp=20 B/min, Pain=0, Lois=10, Mohan=2 14:26:57 Catheter was removed 14:27:19 2 mg VERSED given in lab by Jannet Rae, RN via Peripheral IV. 14:28:03 20 mL 1% XYLOCAINE given in lab by Wesley Vang in Right Groin via Subcutaneous. 14:28:41 50 mcg FENTANYL given in lab by Jannet Rae RN via Peripheral IV. 14:29:14 Access site was Right Femoral Artery. 14:29:26 A SHEATH, FR6 TERUMO (10CM) FR 6 was advanced into the Fem Art (right) using the Percutaneo us technique. A JL 4.0 INFINITI CATHETER FR 6 was advanced over a wire. OMNIPAQUE, 350 MG, 150ML 150ML was us ed for 14:29:40 injections. 14:29:48 HR=74 bpm, VZUY=516/81 mmhg, SpO2=98.0 %, Resp=25 B/min, Pain=0, Lois=10, Mohan=2 14:30:21 The LCA was injected and visualized at various angles. OMNIPAQUE, 350 MG, 150ML 150ML used . After removing the current catheter a PIGTAIL STR INFINITI CATHETER FR 6 was advanced over a WI RE, EXCHANGE 14:32:05 260CM 3MMJ 260CM. Recorded Pressure: LV, HR=76, Condition=Condition 1 14:33:09 (Left Ventricle) LV 111/7/23 Recorded Pressure: LV, Ao, HR=79, Condition=Condition 1 14:33:21 (Left Ventricle) LV 113/7/26, (Aorta) Ao 125/60/92 14:34:55 HR=76 bpm, SLWA=818/71 mmhg, SpO2=93.0 %, Resp=18 B/min 14:34:57 An injection in the Fem Art (right) was made through the SHEATH, FR6 TERUMO (10CM) FR 6. 14:36:33 Catheter was removed 14:36:55 Case End (Physician broke scrub) 14:36:59 VASCADE, FR6 CLOSURE SYSTEM FR 6\7 placement in the Fem Art (right) 14:37:22 BAND, RADIAL COMPRESSION TR SHORT 24 24CM placement in the Radial (right) 14:37:55 No case complications noted. Radial Compression Device Used. 13 mLs of air placed in BAND, RADIAL COMPRESSION TR SHORT 24 24 CM. Affected 14:37:57 hand 96 % O2 saturation. 14:38:07 Bedside Report will be given. 14:38:24 A Left Heart Cath was performed. 14:39:52 HR=74 bpm, XUQN=935/83 mmhg, SpO2=95.0 %, Resp=22 B/min, Pain=0, Lois=10, Mohan=2 Assessment: final Case, HR=74 BPM, DQCY=351/83 mmhg, Chest Pain=0, Edema=None, Color=Normal, Sk in = Warm, Dry Right Pulses: Kasi Ped=3, Femoral=3, Radial=3 14:40:36 Left Pulses: Kasi Ped=3, Femoral=3, Radial=3 Neurological: State=Alert, Ox3, MATHIS Respiration: Resp=20 B/min, SpO2=99 % 14:44:53 HR=74 bpm, GXKT=080/76 mmhg, SpO2=96.0 %, Resp=20 B/min, Pain=0, Lois=10, Mohan=2 14:45:30 Vitals capture stopped. 14:45:38 Patient moved to stretcher 14:46:13 Patient moved to stretcher End Study - Contrast Media Used In Study Contrast Total Opened (mL) Total Used (mL) Total Wasted (mL) Omnipaque 90 90 0 End Study - Maximum Contrast Load Max Contrast Load (mL) 238.2 End Study - Radiation Exposure Fluoro Time (minutes) 13.3 End Study - Patient Disposition Complications Transferred To No Pilling Machine Operator Holding
[2018-02-19] MEDS ORDERED: Atropine Inj 1 MG/ML Vial IV.PUSH PRN (14:48)
[2018-02-19] MEDS ORDERED: Sod Chloride 0.9% Inj 1,000 ML IV.CONT SCH (15:00)
--- NOTE | 2018-02-19 15:06 | MA ---
cc: Wesley Vang MD DATE: 02/19/2018 PROCEDURE: Left heart catheterization, selective coronary angiography. PROCEDURE NOTE: The patient was brought to the cardiac catheterization laboratory in a fasting state after having signed informed consent. The right radial region was prepped and draped as per policy and anesthetized with 1% lidocaine. Arterial access was obtained via the right radial artery and a 6-Ghanaian sheath placed. The right coronary was engaged with a Garner catheter. At this point, the patient began to develop considerable radial artery vasospasm making manipulation of catheters difficult. It was decided to do the rest of the case through a right femoral artery approach. Arterial access was obtained via the right femoral artery and a 6-Ghanaian sheath placed after administration of 1% lidocaine. Left coronary arteriography was performed using a 6-Ghanaian Mark left 4.0 catheter. Left ventriculography was not done. The aortic valve was crossed with a pigtail catheter to measure pressures. His femoral arteriotomy site was closed with VASCADE. His radial arteriotomy site was closed with a radial artery compression band. HEMODYNAMIC DATA: Left ventricle 07/05/2017 with an end-diastolic pressure 25, aorta 125/60 with a mean of 92. There was no significant transvalvular aortic gradient on pullback of the pigtail catheter. CORONARY ARTERIOGRAPHY: The left main is normal. The left anterior descending is a fairly large caliber vessel, which is totally occluded very distally where the vessel is small. The LAD gives rise to a small diagonal, which is free of disease. The ostial to proximal portion of the LAD has 20% disease. The left circumflex is a medium-sized vessel giving rise to 4 [id number] sized obtuse marginals. No definite disease is seen in the left circumflex system. The right coronary artery is a fairly large, dominant vessel with no disease. LEFT VENTRICULOGRAPHY: not done due to the patient's elevated creatinine. CONCLUSIONS: Severe single vessel coronary artery disease, namely a totally occluded very distal left anterior descending. DISCUSSION: The patient will be recommended medical therapy. The total occlusion in the LAD is very distal, where the vessel is small and supplies a small amount of myocardium. He also likely has completed his infarction. MD RORY Whitt/anirudh , 02:42 PM , 02:50 PM MTDShreya
[2018-02-19] MEDS ORDERED: Iohexol 350 MG/ML 100 ML Vial (for Cath Lab) IVCONTRAST ONE (16:34)
[2018-02-19] MEDS ORDERED: Acetaminophen 325 MG Tablet PO PRN ×2 (20:25→21:44)
[2018-02-19] MEDS: Morphine Inj 4 MG/ML Vial IV.PUSH PRN (21:27)
[2018-02-20] MEDS: Chlorhexidine Gluconate 2% 1 Pack (2 Cloths) TOPICAL SCH (04:09)
[2018-02-20 05:54] LABS: Baso # (Auto) 0.1 th/mm3 (0.0-0.2); Eos # (Auto) 0.6 th/mm3 (0.0-0.4); Eos % (Auto) 6.9 % (0.0-4.0); Hematocrit 35.4 % (39.0-51.0); Hemoglobin 12.5 gm/dL (13.0-17.0); Lymph # (Auto) 1.7 th/mm3 (1.0-4.8); Lymph % (Auto) 19.3 % (9.0-44.0); Mean Corpuscular HGB Conc 35.4 % (32.0-36.0); Mean Corpuscular Hemoglobin 32.4 pg (27.0-34.0); Mean Corpuscular Volume 91.5 fL (80.0-100.0); Mean Platelet Volume 8.1 fL (7.0-11.0); Mono # (Auto) 0.9 th/mm3 (0.0-0.9); Mono % (Auto) 9.5 % (0.0-8.0); Neut # (Auto) 5.7 th/mm3 (1.8-7.7); Neut % (Auto) 63.3 % (16.0-70.0); Platelet Count 282 th/mm3 (150-450); Red Blood Count 3.87 mil/mm3 (4.50-5.90); Red Cell Distribution Width 12.6 % (11.6-17.2)
[2018-02-20 05:57] LABS: Prothrombin Time 10.5 sec (9.8-11.6)
[2018-02-20 06:17] LABS: Calcium 8.9 mg/dL (8.5-10.1); Carbon Dioxide 30.2 meq/L (21.0-32.0); Magnesium 1.9 mg/dL (1.5-2.5); Potassium 4.3 meq/L (3.5-5.1)
[2018-02-20 06:30] LABS: Phosphorus 4.4 mg/dL (2.5-4.9)
[2018-02-20 06:45] LABS: CKMB Percent 0.3 % (0.0-4.0); Creatine Kinase MB 5.1 ng/mL (0.5-3.6)
[2018-02-20] MEDS: Sodium Bicarbonate 8.4% Inj 75 MEQ in Sodium Chloride 0.45 % Inj 925 ML IV.CONT SCH (09:03)
[2018-02-20] MEDS: Heparin - SQ 10,000 UNITS/ML Vial SQ SCH (09:04)
[2018-02-20] MEDS: Folic Acid 1 MG Tablet PO SCH (09:04)
[2018-02-20] MEDS: Senna/Docusate Sodium 8.6/50 MG Tablet PO SCH (09:05)
--- NOTE | 2018-02-20 10:17 | P.PNNP ---
Subjective Interval history: Patient is resting. Denies any shortness of breath or chest pain. Reports discomfort in groin at cath site, site WNL. Also lower extremity discomfort. <Gloria Martinez - Last Filed: 02/20/18 10:14> Physical Exam Vital signs: Vital Signs 02/19/18 11:00 02/19/18 12:00 02/19/18 12:17 Temperature 98.2 F Pulse Rate 66 66 Respiratory Rate 18 18 Blood Pressure 128/75 Pulse Oximetry 100 02/19/18 13:00 02/19/18 15:00 02/19/18 16:00 Temperature Pulse Rate 65 62 96 H Respiratory Rate Blood Pressure Pulse Oximetry 02/19/18 17:00 02/19/18 18:00 02/19/18 19:00 Temperature 97.3 F L Pulse Rate 99 H 81 80 Respiratory Rate 18 Blood Pressure 113/58 L Pulse Oximetry 99 02/19/18 20:00 02/19/18 21:00 02/19/18 22:00 Temperature Pulse Rate 73 75 76 Respiratory Rate Blood Pressure Pulse Oximetry 02/19/18 23:00 02/20/18 00:00 02/20/18 01:00 Temperature 98.1 F Pulse Rate 75 70 69 Respiratory Rate 18 Blood Pressure 116/83 Pulse Oximetry 99 02/20/18 02:00 02/20/18 03:00 02/20/18 04:00 Temperature 97.8 F Pulse Rate 66 66 66 Respiratory Rate 16 Blood Pressure 112/69 Pulse Oximetry 98 02/20/18 05:00 02/20/18 06:00 Temperature Pulse Rate 68 65 Respiratory Rate Blood Pressure Pulse Oximetry Intake & Output 02/19/18 02/20/18 02/20/18 18:59 06:59 18:59 Intake Total 2480 / 2480 2177 / 2177 183 / 183 Output Total 2099 1100 / 1100 Balance 380 / 380 1077 / 1077 183 / 183 Weight 85 kg Intake: IV 1000 / 1000 181 / 181 183 / 183 Sodium Bicarbonate 8.4% Inj 75 1000 / 1000 181 / 1817 183 / 183 MEQ In 1/2 Normal Saline Inj 925 ML @ 100 mls/hr IV.CONT . Q10H [facility] Rx#:[id number] Oral 480 / 480 360 / 360 Other 1000 / 1000 Output: Urine 2099 1100 / 1100 Other: Other Intake Source Saline Solution Date of Last Bowel Movement 02/18/18 02/19/18 # Bowel Movements 1 Narrative: GENERAL: NAD. Alert and oriented SKIN: Warm and dry. EYES: Pupils equal CARDIOVASCULAR: Regular rate and rhythm. No murmurs rubs or gallops. RESPIRATORY: Clear to auscultation. Breath sounds equal bilaterally. GASTROINTESTINAL: Abdomen soft, non-tender, nondistended. MUSCULOSKELETAL: Extremities without cyanosis. <Gloria Martinez - Last Filed: 02/20/18 10:14> Vital signs: Vital Signs 02/19/18 20:00 02/19/18 21:00 02/19/18 22:00 Temperature Pulse Rate 73 75 76 Respiratory Rate Blood Pressure Pulse Oximetry 02/19/18 23:00 02/20/18 00:00 02/20/18 01:00 Temperature 98.1 F Pulse Rate 75 70 69 Respiratory Rate 18 Blood Pressure 116/83 Pulse Oximetry 99 02/20/18 02:00 02/20/18 03:00 02/20/18 04:00 Temperature 97.8 F Pulse Rate 66 66 66 Respiratory Rate 16 Blood Pressure 112/69 Pulse Oximetry 98 02/20/18 05:00 02/20/18 06:00 02/20/18 07:00 Temperature 98.6 F Pulse Rate 68 65 65 Respiratory Rate 16 Blood Pressure 111/60 Pulse Oximetry 98 02/20/18 08:00 02/20/18 09:00 02/20/18 10:00 Temperature Pulse Rate 66 67 68 Respiratory Rate Blood Pressure Pulse Oximetry 02/20/18 11:00 02/20/18 12:00 02/20/18 13:00 Temperature 98.5 F Pulse Rate 71 71 62 Respiratory Rate 16 Blood Pressure 111/74 Pulse Oximetry 99 Intake & Output 02/20/18 02/20/18 02/21/18 06:59 18:59 06:59 Intake Total 2177 / 2177 183 / 183 Output Total 1100 / 1100 Balance 1077 / 1077 183 / 183 Weight 85 kg Intake: IV 1816 183 / 183 Sodium Bicarbonate 8.4% Inj 75 1816 / 181 183 / 183 MEQ In 1/2 Normal Saline Inj 925 ML @ 100 mls/hr IV.CONT . Q10H [facility] Rx#:[id number] Oral 360 / 360 Output: Urine 1100 / 1100 Other: Date of Last Bowel Movement 02/19/18 02/19/18 # Bowel Movements 1 <BrandinkiEsteban Eloy - Last Filed: 02/20/18 19:02> Assessment and Plan - Assessment (1) Acute renal insufficiency Code(s): N28.9 - Disorder of kidney and ureter, unspecified Status: Acute Plan: Acute kidney injury with a creatinine of 3.12 on day of consult. Creatinine noted on 10/05/17 of 1.0 Acute kidney injury possibly ATN related to rhabdomyolysis Creatinine 3.12 ->2.69 ->2.04 ->1.74 ->1.75 Complements normal, AGUEDA normal U/S - Right Kidney: Normal echotexture and cortical thickness. No mass or hydronephrosis. Left Kidney: Normal echotexture and cortical thickness. No mass or hydronephrosis. 6.7 mm nonobstructing upper pole calculus suspected. There may also be a 4.5 mm stone at the lower pole, nonobstructing. Plan Possible discharge home today. Heart cath results reviewed. IVF discontinued and oral fluids encouraged. Instructed to avoid NSAIDS. Per nephrology stand point patient is cleared for discharge but will need outpatient follow up as creatinine is still elevated. <Gloria Martinez - Last Filed: 02/20/18 10:14> - Assessment (1) Acute renal insufficiency Code(s): N28.9 - Disorder of kidney and ureter, unspecified Status: Acute - Attending Attestation Patient seen and examined; records reviewed; agree with the plan and recommendations of the [facility] AUTHOR <Esteban Sahu S - Last Filed: 02/20/18 19:02>
--- NOTE | 2018-02-20 11:25 | P.PN ---
Subjective Interval history: Follow-up questionable ST elevation [place] versus Takotsubo cardiomyopathy / rhabdomyolysis/cardiomyopathy February 17, 2018-patient seen and examined, complaining of left flank pain. Reports some on and off chest pain. February 18, 2018-patient seen and examined, reports some on and off chest pain otherwise no other issues. CK and renal indices improving February 19, 2018-patient seen and examined, still with some mild chest pain. Creatinine down to 1.74. Plan for heart catheterization today. February 20, 2018-patient seen and examined, had a clean cath yesterday. No other issues today. Renal indices and CK trending down. Physical Exam Vital signs: Vital Signs 02/19/18 12:00 02/19/18 12:17 02/19/18 13:00 Temperature Pulse Rate 66 65 Respiratory Rate 18 Blood Pressure Pulse Oximetry 02/19/18 15:00 02/19/18 16:00 02/19/18 17:00 Temperature Pulse Rate 62 96 H 99 H Respiratory Rate Blood Pressure Pulse Oximetry 02/19/18 18:00 02/19/18 19:00 02/19/18 20:00 Temperature 97.3 F L Pulse Rate 81 80 73 Respiratory Rate 18 Blood Pressure 113/58 L Pulse Oximetry 99 02/19/18 21:00 02/19/18 22:00 02/19/18 23:00 Temperature 98.1 F Pulse Rate 75 76 75 Respiratory Rate 18 Blood Pressure 116/83 Pulse Oximetry 99 02/20/18 00:00 02/20/18 01:00 02/20/18 02:00 Temperature Pulse Rate 70 69 66 Respiratory Rate Blood Pressure Pulse Oximetry 02/20/18 03:00 02/20/18 04:00 02/20/18 05:00 Temperature 97.8 F Pulse Rate 66 66 68 Respiratory Rate 16 Blood Pressure 112/69 Pulse Oximetry 98 02/20/18 06:00 02/20/18 07:00 02/20/18 08:00 Temperature 98.6 F Pulse Rate 65 65 66 Respiratory Rate 16 Blood Pressure 111/60 Pulse Oximetry 98 02/20/18 09:00 02/20/18 10:00 Temperature Pulse Rate 67 68 Respiratory Rate Blood Pressure Pulse Oximetry Intake & Output 02/19/18 02/20/18 02/20/18 18:59 06:59 18:59 Intake Total 2480 / 2480 2177 / 2177 183 / 183 Output Total 2099 1100 / 1100 Balance 380 / 380 1077 / 1077 183 / 183 Weight 85 kg Intake: IV 1000 / 1000 1816 183 / 183 Sodium Bicarbonate 8.4% Inj 75 1000 / 1000 1816 183 / 183 MEQ In 1/2 Normal Saline Inj 925 ML @ 100 mls/hr IV.CONT . Q10H [facility] Rx#:[id number] Oral 480 / 480 360 / 360 Other 1000 / 1000 Output: Urine 2099 1100 / 1100 Other: Other Intake Source Saline Solution Date of Last Bowel Movement 02/18/18 02/19/18 02/19/18 # Bowel Movements 1 Narrative: GENERAL: NAD. Alert and oriented SKIN: Warm and dry. EYES: Pupils equal CARDIOVASCULAR: Regular rate and rhythm. No murmurs rubs or gallops. RESPIRATORY: Clear to auscultation. Breath sounds equal bilaterally. GASTROINTESTINAL: Abdomen soft, non-tender, nondistended. MUSCULOSKELETAL: Extremities without cyanosis. Results - Labs CBC & Chem 7: 02/20/18 04:20 02/20/18 04:20 Laboratory Results - last 24 hr 02/17/18 02/20/18 02/20/18 04:13 04:20 04:20 WBC 9.0 RBC 3.87 L Hgb 12.5 L Hct 35.4 L MCV 91.5 MCH 32.4 MCHC 35.4 RDW 12.6 Plt Count 282 MPV 8.1 Neut % (Auto) 63.3 Lymph % (Auto) 19.3 [place] % (Auto) 9.5 H Eos % (Auto) 6.9 H Baso % (Auto) 1.0 Neut # (Auto) 5.7 Lymph # (Auto) 1.7 [place] # (Auto) 0.9 Eos # (Auto) 0.6 H Baso # (Auto) 0.1 WBC Differential . Differential Comment Auto diff final PT INR Sodium 143 Potassium 4.3 D Chloride 104 Carbon Dioxide 30.2 Anion Gap 9 BUN 24 H Creatinine 1.75 H Estimated GFR 48 L Random Glucose 82 Calcium 8.9 Phosphorus 4.4 Magnesium 1.9 Total Creatine Kinase 1927 H CK-MB (CK-2) 5.1 H CK-MB (CK-2) % 0.3 Anti-Proteinase 3 Less than 1.0 Anti-Myeloperoxidase Less than 1.0 02/20/18 04:20 WBC RBC Hgb Hct MCV MCH MCHC RDW Plt Count MPV Neut % (Auto) Lymph % (Auto) [place] % (Auto) Eos % (Auto) Baso % (Auto) Neut # (Auto) Lymph # (Auto) [place] # (Auto) Eos # (Auto) Baso # (Auto) WBC Differential Differential Comment PT 10.5 INR 1.0 Sodium Potassium Chloride Carbon Dioxide Anion Gap BUN Creatinine Estimated GFR Random Glucose Calcium Phosphorus Magnesium Total Creatine Kinase CK-MB (CK-2) CK-MB (CK-2) % Anti-Proteinase 3 Anti-Myeloperoxidase - Procedures [facility] Assessment and Plan - Plan 22-year-old man with Cocaine abuse EtOH abuse (prior ED visit for intoxication) Marijuana abuse tylenol/Lortab as needed for pain Thiamine/MVI/Folic acid. UDS positive for cocaine, cannabinoids and opiates Tobacco abuse NC wean as tolerated. Subacute Inferolateral STEMI vs Takotsubo cardiomyopathy Apical akinesis Severe cardiomyopathy ejection fraction 25% Continue aspirin 81 mg daily, Imdur 30 mg daily Now on beta-blockers, cannot use KVNG inhibitors secondary to renal failure. s/p NTG and heparin drip. Appreciate input from cardiology. s/p clean heart catheterization February 19, 2018 No aortic dissection on AMAIRANI. Evaluated abdominal aorta as well, no e/o dissection. BK Acute rhabdomyolysis Renal indices and CK improving, continue IV hydration. Creatinine down Appreciate input from nephrology Left calf swollen Doppler to rule down DVT on February 16, 2018 HEME: Monitor CBC Followup BLE U/s. PROPH: SCD for DVT prophylaxis. Heparin sq as per above. Stress ulcer prophylaxis is not indicated.
--- NOTE | 2018-02-20 11:27 | P.DS ---
Date of admission: 02/15/18 04:55 Primary care physician: No Primary Care Physician Anticipated date of discharge: 02/20/18 Brief History from admission: 22-year-old male with past medical history of cocaine abuse and tobacco abuse who presents to [facility] emergency department with subacute chest pain. 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 Symptoms lasted most of the afternoon. In the afternoon of 02/14/18 he awoke from a nap with left-sided sharp pleuritic chest pain. He was nauseated but had no vomiting. He has also noted that his calves are "sore" and he has tingling of his feet. EKG demonstrates ST elevation of II,III, aVF, V 2-V6 with qwaves. Troponin was >40. Based on these findings there was concern for aortic dissection (with concomitant RCA involvement) however his creatinine was 3.22. AMAIRANI and TTE were performed and demonstrated no evidence of aortic dissection. There is apical akinesis. He has acute rhabdomyolysis. BP R arm 126/82, L 119/70. No family history of CAD or VTE or thrombophilia. No recent fever, cough, flu- like symptoms, headache, myalgias, sore throat. Had "dark" urine last 2 days ( acute rhabdomyolysis) No recent travel. Says last used cocaine 2-3 weeks ago. Smoked marijuana tuesday 02/13. No anabolic steroids. DS: Summary Hospital Course: While in hospital, patient was treated for: Cocaine abuse EtOH abuse (prior ED visit for intoxication) Marijuana abuse tylenol/Lortab as needed for pain Thiamine/MVI/Folic acid. UDS positive for cocaine, cannabinoids and opiates Tobacco abuse NC wean as tolerated. Subacute Inferolateral STEMI vs Takotsubo cardiomyopathy Apical akinesis Severe cardiomyopathy ejection fraction 25% Continue aspirin 81 mg daily Now on beta-blockers, cannot use KVNG inhibitors secondary to renal failure. s/p NTG and heparin drip. Appreciate input from cardiology. s/p clean heart catheterization February 19, 2018 No aortic dissection on AMAIRANI. Evaluated abdominal aorta as well, no e/o dissection. BK Acute rhabdomyolysis Renal indices and CK improving, continue IV hydration. Creatinine down Appreciate input from nephrology Left calf swollen Doppler to rule down DVT on February 16, 2018 HEME: Monitor CBC Followup BLE U/s. PROPH: SCD for DVT prophylaxis. Heparin sq as per above. Stress ulcer prophylaxis is not indicated. - Time Spent with Patient Total time spent providing and/or coordinating discharge services: Less than 30 minutes Exam Vital signs: Vital Signs 02/19/18 12:00 02/19/18 12:17 02/19/18 13:00 Temperature Pulse Rate 66 65 Respiratory Rate 18 Blood Pressure Pulse Oximetry 02/19/18 15:00 02/19/18 16:00 02/19/18 17:00 Temperature Pulse Rate 62 96 H 99 H Respiratory Rate Blood Pressure Pulse Oximetry 02/19/18 18:00 02/19/18 19:00 02/19/18 20:00 Temperature 97.3 F L Pulse Rate 81 80 73 Respiratory Rate 18 Blood Pressure 113/58 L Pulse Oximetry 99 02/19/18 21:00 02/19/18 22:00 02/19/18 23:00 Temperature 98.1 F Pulse Rate 75 76 75 Respiratory Rate 18 Blood Pressure 116/83 Pulse Oximetry 99 02/20/18 00:00 02/20/18 01:00 02/20/18 02:00 Temperature Pulse Rate 70 69 66 Respiratory Rate Blood Pressure Pulse Oximetry 02/20/18 03:00 02/20/18 04:00 02/20/18 05:00 Temperature 97.8 F Pulse Rate 66 66 68 Respiratory Rate 16 Blood Pressure 112/69 Pulse Oximetry 98 02/20/18 06:00 02/20/18 07:00 02/20/18 08:00 Temperature 98.6 F Pulse Rate 65 65 66 Respiratory Rate 16 Blood Pressure 111/60 Pulse Oximetry 98 02/20/18 09:00 02/20/18 10:00 Temperature Pulse Rate 67 68 Respiratory Rate Blood Pressure Pulse Oximetry Intake & Output 02/19/18 02/20/18 02/20/18 18:59 06:59 18:59 Intake Total 2480 / 2480 2177 / 2177 183 / 183 Output Total 2100 / 2100 1100 / 1100 Balance 380 / 380 1077 / 1077 183 / 183 Weight 85 kg Intake: IV 1000 / 1000 1817 / 1817 183 / 183 Sodium Bicarbonate 8.4% Inj 75 1000 / 1000 1817 / 1817 183 / 183 MEQ In 1/2 Normal Saline Inj 925 ML @ 100 mls/hr IV.CONT . Q10H [facility] Rx#:[id number] Oral 480 / 480 360 / 360 Other 1000 / 1000 Output: Urine 2100 / 2100 1100 / 1100 Other: Other Intake Source Saline Solution Date of Last Bowel Movement 02/18/18 02/19/18 02/19/18 # Bowel Movements 1 Narrative: GENERAL: NAD SKIN: Warm and dry. HEAD: Normocephalic. EYES: No scleral icterus. No injection or drainage. NECK: Supple, trachea midline. No JVD or lymphadenopathy. CARDIOVASCULAR: Regular rate and rhythm without murmurs, gallops, or rubs. RESPIRATORY: Breath sounds equal bilaterally. No accessory muscle use. GASTROINTESTINAL: Abdomen soft, non-tender, nondistended. MUSCULOSKELETAL: No cyanosis, or edema. BACK: Nontender without obvious deformity. No CVA tenderness. Results Procedures completed during hospitalization: [facility] Labs on day of discharge: Labs from last 24 hours 02/20/18 02/20/18 02/20/18 04:20 04:20 04:20 WBC 9.0 RBC 3.87 L Hgb 12.5 L Hct 35.4 L MCV 91.5 MCH 32.4 MCHC 35.4 RDW 12.6 Plt Count 282 MPV 8.1 Neut % (Auto) 63.3 Lymph % (Auto) 19.3 [place] % (Auto) 9.5 H Eos % (Auto) 6.9 H Baso % (Auto) 1.0 Neut # (Auto) 5.7 Lymph # (Auto) 1.7 [place] # (Auto) 0.9 Eos # (Auto) 0.6 H Baso # (Auto) 0.1 WBC Differential . Differential Comment Auto diff final PT 10.5 INR 1.0 Sodium 143 Potassium 4.3 D Chloride 104 Carbon Dioxide 30.2 Anion Gap 9 BUN 24 H Creatinine 1.75 H Estimated GFR 48 L Random Glucose 82 Calcium 8.9 Phosphorus 4.4 Magnesium 1.9 Total Creatine Kinase 1927 H CK-MB (CK-2) 5.1 H CK-MB (CK-2) % 0.3 Anti-Proteinase 3 Anti-Myeloperoxidase 02/17/18 04:13 WBC RBC Hgb Hct MCV MCH MCHC RDW Plt Count MPV Neut % (Auto) Lymph % (Auto) [place] % (Auto) Eos % (Auto) Baso % (Auto) Neut # (Auto) Lymph # (Auto) [place] # (Auto) Eos # (Auto) Baso # (Auto) WBC Differential Differential Comment PT INR Sodium Potassium Chloride Carbon Dioxide Anion Gap BUN Creatinine Estimated GFR Random Glucose Calcium Phosphorus Magnesium Total Creatine Kinase CK-MB (CK-2) CK-MB (CK-2) % Anti-Proteinase 3 Less than 1.0 Anti-Myeloperoxidase Less than 1.0 - Impressions ITS Impressions Chest X-Ray 02/15/18 02:23 CONCLUSION: No acute cardiopulmonary process. Lungs are clear. Venous Doppler Study 02/15/18 05:50 CONCLUSION: 1. No sonographic evidence for lower extremity DVT. Abdomen/Bladder Ultrasound 02/17/18 00:00 CONCLUSION: 1. Nonobstructing left renal calculi are suspected. The study is otherwise unremarkable. Discharge Plan - Discharge Disposition Patient Disposition: 01 Discharge Home - Discharge Condition Condition: Serious - Discharge Order Discharge Orders: Discharge Order (Routine); Ordered 02/20/18 Ordered By: [employer] - Physicians Team Primary Care Provider: Primary Care Senthili,Kika Attending Provider: [employer] Other Providers: Esteban Sahu MD
== END 2018-02-20 14:38 | disposition home or self-care (01) ==
LOC: NEPC 02:15 → NEDA 04:55 → HCVI 06:53 → HCPC 02-17 09:40
PROVIDERS: ADMIT Hospitalist; ATTEND Hospitalist